=== PATIENT | female | born 1980 | race Two or more races ===

== ENCOUNTER 2016-06-11 17:37 | Emergency (ER) | payer BC, OTHER ==
[2016-06-11] MEDS ORDERED: diphenhydrAMINE 50 MG/ML SDV IVPUSH ONE (18:20)
[2016-06-11] MEDS ORDERED: Sodium Chloride 0.9% 1,000 ML IV ONE (18:20)
[2016-06-11] MEDS ORDERED: Metoclopramide 10 MG/2 ML SDV IV ONE (18:20)
[2016-06-11] MEDS ORDERED: Ketorolac 30 MG/ML SDV IVPUSH ONE (18:20)
[2016-06-11 19:03] LABS: CHLORIDE,CL 104 mmol/L (98-110); SODIUM,NA 138 mmol/L (136-146)
--- NOTE | 2016-06-11 19:09 | EDM.PDOC ---
ED HPI GENERAL MEDICAL PROBLEM - General Chief Complaint: Chest Pain Stated Complaint: PT HAS DIFFICULTY BREATHING Time Seen by Provider: 06/11/16 18:00 Source of Information: Reports: Patient History Limitations: Reports: No limitations - History of Present Illness INITIAL COMMENTS - FREE TEXT/NARRATIVE: HISTORY AND PHYSICAL: History of present illness: Patient is an obese 35-year-old female who presents to the emergency department today with multiple medical complaints. She states her blood pressure has been abnormal over the weekend and hard to control. she showed me a list of some of the measurements she is gone but they have never been over 150 systolic. She has had some sensations of upper chest and shoulder pain on both sides and nausea. She's been sleeping a lot over the weekend and has had a pounding headache all weekend. She does have history of headaches but those are usually well controlled and she has had issues with those for a while. She also history of anxiety and panic attacks and has had some anxiety-type symptoms this weekend but does not think it feels exactly like her typical symptoms. She presents today for evaluation of more chest pain and headache. She was at work today and started developing central chest pain that has been off and on. Currently her pain is a 2 but when it is on, it is a 7 or 8. She denies coughs, fevers, shortness of breath, nausea or vomiting. She has had some mild off and on abdominal pain. Review of systems: As per history of present illness and below otherwise all systems reviewed and negative. Past medical history: As per history of present illness and as reviewed below otherwise noncontributory. Surgical history: As per history of present illness and as reviewed below otherwise noncontributory. Social history: No reported history of drug or alcohol abuse. Family history: As per history of present illness and as reviewed below otherwise noncontributory. Physical exam: HEENT: Atraumatic, normocephalic, pupils reactive, negative for conjunctival pallor or scleral icterus, mucous membranes moist, throat clear, neck supple, nontender, trachea midline. Lungs: Clear to auscultation, breath sounds equal bilaterally, chest tender to palpation. Heart: S1S2, regular, negative for clicks, rubs, or JVD. Abdomen: Soft, nondistended, nontender. Negative for masses or hepatosplenomegaly. Negative for costovertebral tenderness. Pelvis: Stable nontender. Genitourinary: Deferred. Rectal: Deferred. Extremities: Atraumatic, negative for cords or calf pain. Neurovascular unremarkable. Neuro: Awake, alert, oriented. Cranial nerves II through XII unremarkable. Cerebellum unremarkable. Motor and sensory unremarkable throughout. Exam nonfocal. Diagnostics: EKG, cbc, cmp, troponin, chest xray, Therapeutics: IV fluids, toradol, benadryl, reglan Impression: #1: Headache #2: Atypical chest pain Plan: Patient felt much better after medications. Lab and imaging came back unremarkable and I do not feel this is cardiac related. She had reproducible chest tenderness. Her blood pressure was slightly elevated but not at a concerning level and she did not have any neurologic symptoms. Patient was comfortable with discharge and did not have additional questions or concerns and I advised follow up with primary care in the next few days or to return for any significant change or worsening of her symptoms. Definitive disposition and diagnosis as appropriate pending reevaluation and review of above. Mid-Sternal Chest Pain Score (Numeric/FACES): 7 - Related Data Allergies Allergy/AdvReac Type Severity Reaction Status Date / Time No Known Allergies Allergy Verified 06/11/16 17:49 Home Meds: Home Meds Cholecalciferol (Vitamin D3) [Vitamin D] 1 cap PO DAILY 12/30/14 [History] Lansoprazole [Prevacid] 1 cap PO DAILY 12/30/14 [History] Venlafaxine [Effexor XR] 150 mg PO DAILY 12/30/14 [History] metFORMIN [Glucophage] 1,000 mg PO BEDTIME 12/30/14 [History] ALPRAZolam [Alprazolam ER] 1 tab PO DAILY 06/11/16 [History] Cyanocobalamin (Vitamin B12) [Vitamin B12] 1 cap PO DAILY 06/11/16 [History] Divalproex Sodium [Depakote] 1 tab PO DAILY 06/11/16 [History] Lisinopril 1 tab PO DAILY 06/11/16 [History] Magnesium 2 tab PO DAILY 06/11/16 [History] Metoclopramide [Reglan] 1 tab PO DAILY 06/11/16 [History] Montelukast [Singulair] 1 cap PO DAILY 06/11/16 [History] Past Medical History Cardiovascular History: Reports: Hypertension Gastrointestinal History: Reports: GERD Other Gastrointestinal History: acid reflux Genitourinary History: Reports: Renal calculus Neurological History: Reports: Migraines Psychiatric History: Reports: Anxiety Endocrine/Metabolic History: Reports: Diabetes, type II Other Endocrine/Metabolic History: borderline diabetes - Past Surgical History GI Surgical History: Reports: Cholecystectomy Female Surgical History: Reports: section Social & Family History - Family History Family Medical History: Noncontributory - Tobacco Use Smoking Status *Q: Current Every Day Smoker Years of Tobacco use: 2 Packs/Tins Daily: 0.5 - Caffeine Use Caffeine Use: Reports: None - Recreational Drug Use Recreational Drug Use: No ED ROS GENERAL - Review of Systems Review Of Systems: ROS reveals no pertinent complaints other than HPI. ED EXAM, GENERAL - Physical Exam Exam: See Below (See HPI) Course - Vital Signs Last Recorded V/S: Last Vital Signs Temp 37.0 C 06/11/16 20:20 Pulse 78 06/11/16 20:20 Resp 16 06/11/16 20:20 BP 124/71 06/11/16 20:20 Pulse Ox 97 06/11/16 20:20 - Orders/Labs/Meds Orders: Active Orders 24 hr Category Date Time Status Chest 2V [CR] Stat Exams 06/11/16 19:09 Ordered Labs: Laboratory Tests 06/11/16 06/11/16 06/11/16 Range/Units 18:30 18:30 18:30 WBC 7.48 (4.0-11.0) K/uL RBC 4.20 L (4.30-5.90) M/uL Hgb 11.7 L (12.0-16.0) g/dL Hct 36.0 (36.0-46.0) % MCV 85.7 (80.0-98.0) fL MCH 27.9 (27.0-32.0) pg MCHC 32.5 (31.0-37.0) g/dL RDW Std Deviation 43.5 (28.0-62.0) fl RDW Coeff of Felix 14 (11.0-15.0) % Plt Count 276 (150-400) K/uL MPV 9.40 (7.40-12.00) fL Neut % (Auto) 64.6 (48.0-80.0) % Lymph % (Auto) 22.1 (16.0-40.0) % [place] % (Auto) 8.3 (0.0-15.0) % Eos % (Auto) 4.3 (0.0-7.0) % Baso % (Auto) 0.7 (0.0-1.5) % Neut # 4.8 (1.4-5.7) K/uL Lymph # 1.7 (0.6-2.4) K/uL [place] # 0.6 (0.0-0.8) K/uL Eos # 0.3 (0.0-0.7) K/uL Baso # 0.1 (0.0-0.1) K/uL Nucleated RBC % 0.0 /100WBC Nucleated RBCs # 0 K/uL Sodium 138 (136-146) mmol/L Potassium 4.2 (3.5-5.1) mmol/L Chloride 104 (98-110) mmol/L Carbon Dioxide 23 (21-31) mmol/L BUN 9 (6.0-23.0) mg/dL Creatinine 0.8 (0.6-1.5) mg/dL Est Cr Clr Drug Dosing TNP Estimated GFR (MDRD) > 60.0 ml/min Glucose 113 H (60-110) mg/dL Calcium 9.1 (8.8-10.8) mg/dL Total Bilirubin 0.3 (0.1-1.5) mg/dL AST 17 (5-40) IU/L ALT 21 (8-54) IU/L Alkaline Phosphatase 46 (40-150) Troponin I < 0.10 (0.0-0.29) NG/ML Total Protein 7.2 (6.0-8.0) g/dL Albumin 4.1 (3.5-5.0) g/dL Globulin 3.1 (2.0-3.5) g/dL Albumin/Globulin Ratio 1.3 (1.3-2.8) Meds: Medications Discontinued Medications Generic Name Dose Route Start Last Admin Trade Name Freq PRN Reason Stop Dose Admin Diphenhydramine HCl 25 mg 06/11/16 18:20 06/11/16 18:42 Benadryl IVPUSH 06/11/16 18:21 25 mg ONETIME ONE Administration Sodium Chloride 1,000 mls @ 999 mls/hr 06/11/16 18:20 06/11/16 18:41 Normal Saline IV 06/11/16 19:20 999 mls/hr STAT ONE Administration Ketorolac Tromethamine 30 mg 06/11/16 18:20 06/11/16 18:41 Toradol IVPUSH 06/11/16 18:21 30 mg ONETIME ONE Administration Metoclopramide HCl 10 mg 06/11/16 18:20 06/11/16 18:43 Reglan IV 06/11/16 18:21 10 mg ONETIME ONE Administration Departure - Departure Time of Disposition: 20:26 Disposition: Home, Self-Care 01 Condition: good Clinical Impression: Atypical chest pain Headache Qualifiers: Headache type: unspecified Headache chronicity pattern: episodic headache Intractability: not intractable Qualified Code(s): R51 - Headache Instructions: Migraine Headache, [id number], Chest Wall Pain, [id number] Referrals: PCP,None [Primary Care Provider] - Forms: ED Department Discharge Additional Instructions: The following information is given to patients seen in the emergency department who are being discharged to home. This information is to outline your options for follow-up care. We provide all patients seen in our emergency department with a follow-up referral. The need for follow-up, as well as the timing and circumstances, are variable depending upon the specifics of your emergency department visit. If you don't have a primary care physician on staff, we will provide you with a referral. We always advise you to contact your personal physician following an emergency department visit to inform them of the circumstance of the visit and for follow-up with them and/or the need for any referrals to a consulting specialist. The emergency department will also refer you to a specialist when appropriate. This referral assures that you have the opportunity for follow-up care with a specialist. All of these measure are taken in an effort to provide you with optimal care, which includes your follow-up. Under all circumstances we always encourage you to contact your private physician who remains a resource for coordinating your care. When calling for follow-up care, please make the office aware that this follow-up is from your recent emergency room visit. If for any reason you are refused follow-up, please contact the [facility] Emergency Department at and asked to speak to the emergency department charge nurse. [facility] [address] [place] [id number] - My Orders Last 24 Hours: My Active Orders 06/11/16 19:09 Chest 2V [CR] Stat - Assessment/Plan Last 24 Hours: My Active Orders 06/11/16 19:09 Chest 2V [CR] Stat
[2016-06-11 20:20] VITALS: BP 124/71
--- NOTE | 2016-06-12 14:47 | CR ---
EXAM DATE: 06/11/16 PATIENT'S AGE: 35 Patient: DOUGLAS ZABALA Facility: [place], [place] Site . Site : 1980 Study: XRay Chest [id number] 7:23:37 PM Ordering Physician: Doctor Valencia Final Report: CHEST 2 VIEWS INDICATION: Chest pain. IMPRESSION: Normal heart size and vascular pattern. Lungs are clear. No pneumothorax or pleural abnormality. Dictated by Ahsan Curry MD @ Jun 11 2016 7:32PM (Electronic Signature) Report Signed by Proxy and Original Signed Document filed in the Medical Record. MTDD
== END 2016-06-11 20:39 | disposition home or self-care (01) ==
LOC: MW.ED 17:37
DX: R51 Headache (principal); R07.89 Other chest pain; I10 Essential (primary) hypertension; K21.9 Gastro-esophageal reflux disease without esophagitis; E11.9 Type 2 diabetes mellitus without complications; F17.210 Nicotine dependence, cigarettes, uncomplicated; Z79.899 Other long term (current) drug therapy; Z79.84 Long term (current) use of oral hypoglycemic drugs; Z98.890 Other specified postprocedural states
CPT/HCPCS: 71020; 80053; 84484; 85025; 93005; 96361; 96374; 96375; 99285; J1200; J1885; J2765; J7040; 99284

== ENCOUNTER 2016-09-02 12:01 | Emergency (ER) | payer BC, OTHER ==
[2016-09-02] MEDS ORDERED: Sodium Chloride 0.9% 1,000 ML IV ONE (12:13)
[2016-09-02] MEDS ORDERED: fentaNYL 100 MCG/2 ML SDV IVPUSH ONE (12:14)
[2016-09-02] MEDS ORDERED: Ondansetron 4 MG/2 ML SDV IVPUSH ONE (12:14)
--- NOTE | 2016-09-02 12:56 | EDM.PDOC ---
ED HPI GENERAL MEDICAL PROBLEM - General Chief Complaint: Abdominal Pain Stated Complaint: STOMACH PAIN Time Seen by Provider: 09/02/16 12:10 Source of Information: Reports: Patient History Limitations: Reports: No Limitations - History of Present Illness INITIAL COMMENTS - FREE TEXT/NARRATIVE: History of present illness: 36-year-old female comes in complaining of abdominal pain. Patient indicates that it is A stabbing diaphragmatic pain that shoots from her upper epigastric region to her umbilicus and back and now it is radiating to her back. Patient states that she no longer has her gallbladder and indicates that she does have history of kidney stones but this is different sort of pain Review of systems: As per history of present illness and below otherwise all systems reviewed and negative. Past medical history: As per history of present illness and as reviewed below otherwise noncontributory. Surgical history: As per history of present illness and as reviewed below otherwise noncontributory. Social history: No reported history of drug or alcohol abuse. Family history: As per history of present illness and as reviewed below otherwise noncontributory. Physical exam: HEENT: Atraumatic, normocephalic, pupils reactive, negative for conjunctival pallor or scleral icterus, mucous membranes moist, throat clear, neck supple, nontender, trachea midline. Lungs: Clear to auscultation, breath sounds equal bilaterally, chest nontender. Heart: S1S2, regular, negative for clicks, rubs, or JVD. Abdomen: Soft, protuberant diffusely tender abdomen upper quadrant significantly more tender than lower quadrant pelvic region. Negative for masses or hepatosplenomegaly. Negative for costovertebral tenderness. Pelvis: Stable nontender. Genitourinary: Deferred. Rectal: Deferred. Extremities: Atraumatic, negative for cords or calf pain. Neurovascular unremarkable. Neuro: Awake, alert, oriented. Cranial nerves II through XII unremarkable. Cerebellum unremarkable. Motor and sensory unremarkable throughout. Exam nonfocal. All results negative patient in no acute distress with pain relieved CT of abdomen negative save for a fatty liver Diagnostics: [EKG, CBC, CMP, amylase, lipase] Therapeutics: [IV fluid, fentanyl, Zofran, morphine, omeprazole] Impression: [Abdominal pain] Plan: [Muscle relaxers follow up with PCP] Definitive disposition and diagnosis as appropriate pending reevaluation and review of above. abdomen Pain Score (Numeric/FACES): 10 - Related Data Allergies Allergy/AdvReac Type Severity Reaction Status Date / Time No Known Allergies Allergy Verified 09/02/16 12:05 Home Meds: Home Meds Cholecalciferol (Vitamin D3) [Vitamin D] 1 cap PO DAILY 12/30/14 [History] Lansoprazole [Prevacid] 1 cap PO DAILY 12/30/14 [History] Venlafaxine [Effexor XR] 225 mg PO BEDTIME 12/30/14 [History] metFORMIN [Glucophage] 1,000 mg PO BEDTIME 12/30/14 [History] ALPRAZolam [Alprazolam ER] 1 tab PO DAILY PRN 06/11/16 [History] Cyanocobalamin (Vitamin B12) [Vitamin B12] 1 cap PO DAILY 06/11/16 [History] Divalproex Sodium [Depakote] 1 tab PO DAILY 06/11/16 [History] Lisinopril 1 tab PO DAILY 06/11/16 [History] Magnesium 2 tab PO DAILY 06/11/16 [History] Metoclopramide [Reglan] 1 tab PO DAILY 06/11/16 [History] Montelukast [Singulair] 1 cap PO DAILY 06/11/16 [History] Past Medical History HEENT History: Reports: Impaired Vision Other HEENT History: wears glasses Cardiovascular History: Reports: Hypertension Gastrointestinal History: Reports: GERD Other Gastrointestinal History: acid reflux Genitourinary History: Reports: Renal Calculus [employer]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: Neurological History: Reports: Migraines Psychiatric History: Reports: Anxiety Endocrine/Metabolic History: Reports: Diabetes, Type II Other Endocrine/Metabolic History: borderline diabetes - Past Surgical History GI Surgical History: Reports: Cholecystectomy Female Surgical History: Reports: Section 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 Surgical History: Reports: Other (See Below) Other 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 Surgeries/Procedures:: broken arm Social & Family History - Family History Family Medical History: Noncontributory - Tobacco Use Smoking Status *Q: Current Every Day Smoker Years of Tobacco use: 2 Packs/Tins Daily: 1 - Caffeine Use Caffeine Use: Reports: Coffee Caffeine Use Comment: 2 cups daily - Recreational Drug Use Recreational Drug Use: No ED ROS GENERAL - Review of Systems Review Of Systems: See Below (History of present illness) ED EXAM, GI/ABD - Physical Exam Exam: See Below (To history of present illness) Course - Vital Signs Last Recorded V/S: Last Vital Signs Temp 36.1 C 09/02/16 12:08 Pulse 84 09/02/16 13:45 Resp 16 09/02/16 13:45 BP 139/84 09/02/16 13:45 Pulse Ox 97 09/02/16 13:45 - Orders/Labs/Meds Orders: Active Orders 24 hr Category Date Time Status EKG Documentation Completion [RC] STAT Care 09/02/16 12:13 Active Labs: Laboratory Tests 09/02/16 09/02/16 09/02/16 Range/Units 12:40 12:40 12:40 WBC 11.14 H (4.0-11.0) K/uL RBC 4.21 L (4.30-5.90) M/uL Hgb 12.0 (12.0-16.0) g/dL Hct 36.5 (36.0-46.0) % MCV 86.7 (80.0-98.0) fL MCH 28.5 (27.0-32.0) pg MCHC 32.9 (31.0-37.0) g/dL RDW Std Deviation 43.8 (28.0-62.0) fl RDW Coeff of Felix 14 (11.0-15.0) % Plt Count 331 (150-400) K/uL MPV 9.70 (7.40-12.00) fL Neut % (Auto) 65.4 (48.0-80.0) % Lymph % (Auto) 23.9 (16.0-40.0) % [place] % (Auto) 7.3 (0.0-15.0) % Eos % (Auto) 2.8 (0.0-7.0) % Baso % (Auto) 0.6 (0.0-1.5) % Neut # (Auto) 7.3 H (1.4-5.7) K/uL Lymph # (Auto) 2.7 H (0.6-2.4) K/uL [place] # (Auto) 0.8 (0.0-0.8) K/uL Eos # (Auto) 0.3 (0.0-0.7) K/uL Baso # (Auto) 0.1 (0.0-0.1) K/uL Nucleated RBC % 0.0 /100WBC Nucleated RBCs # 0 K/uL Sodium 137 (136-146) mmol/L Potassium 4.7 (3.5-5.1) mmol/L Chloride 102 (98-110) mmol/L Carbon Dioxide 22 (21-31) mmol/L BUN 12 (6.0-23.0) mg/dL Creatinine 0.8 (0.6-1.5) mg/dL Est Cr Clr Drug Dosing 71.95 mL/min Estimated GFR (MDRD) > 60.0 ml/min Glucose 161 H (60-110) mg/dL Calcium 9.5 (8.8-10.8) mg/dL Total Bilirubin 0.2 (0.1-1.5) mg/dL AST 18 (5-40) IU/L ALT 20 (8-54) IU/L Alkaline Phosphatase 51 (40-150) Troponin I < 0.10 (0.0-0.29) NG/ML Total Protein 7.9 (6.0-8.0) g/dL Albumin 4.6 (3.5-5.0) g/dL Globulin 3.3 (2.0-3.5) g/dL Albumin/Globulin Ratio 1.4 (1.3-2.8) Amylase 28 (10-90) U/L Lipase 57 (7-80) U/L Urine Color Urine Appearance Urine pH (5.0-8.0) Ur Specific [place] (1.001-1.035) Urine Protein (NEGATIVE) mg/dL Urine Glucose (UA) (NEGATIVE) mg/dL Urine Ketones (NEGATIVE) mg/dL Urine Occult Blood (NEGATIVE) Urine Nitrite (NEGATIVE) Urine Bilirubin (NEGATIVE) Urine Urobilinogen (<2.0) EU/dL Ur Leukocyte Esterase (NEGATIVE) Urine RBC (0-2/HPF) Urine WBC (0-5/HPF) Ur Epithelial Cells (NONE-FEW) Amorphous Sediment (NEGATIVE) Urine Bacteria (NEGATIVE) Urine Mucus (NONE-MOD) Urine HCG, Qual (NEGATIVE) 09/02/16 09/02/16 Range/Units 13:05 13:05 WBC (4.0-11.0) K/uL RBC (4.30-5.90) M/uL Hgb (12.0-16.0) g/dL Hct (36.0-46.0) % MCV (80.0-98.0) fL MCH (27.0-32.0) pg MCHC (31.0-37.0) g/dL RDW Std Deviation (28.0-62.0) fl RDW Coeff of Felix (11.0-15.0) % Plt Count (150-400) K/uL MPV (7.40-12.00) fL Neut % (Auto) (48.0-80.0) % Lymph % (Auto) (16.0-40.0) % [place] % (Auto) (0.0-15.0) % Eos % (Auto) (0.0-7.0) % Baso % (Auto) (0.0-1.5) % Neut # (Auto) (1.4-5.7) K/uL Lymph # (Auto) (0.6-2.4) K/uL [place] # (Auto) (0.0-0.8) K/uL Eos # (Auto) (0.0-0.7) K/uL Baso # (Auto) (0.0-0.1) K/uL Nucleated RBC % /100WBC Nucleated RBCs # K/uL Sodium (136-146) mmol/L Potassium (3.5-5.1) mmol/L Chloride (98-110) mmol/L Carbon Dioxide (21-31) mmol/L BUN (6.0-23.0) mg/dL Creatinine (0.6-1.5) mg/dL Est Cr Clr Drug Dosing mL/min Estimated GFR (MDRD) ml/min Glucose (60-110) mg/dL Calcium (8.8-10.8) mg/dL Total Bilirubin (0.1-1.5) mg/dL AST (5-40) IU/L ALT (8-54) IU/L Alkaline Phosphatase (40-150) Troponin I (0.0-0.29) NG/ML Total Protein (6.0-8.0) g/dL Albumin (3.5-5.0) g/dL Globulin (2.0-3.5) g/dL Albumin/Globulin Ratio (1.3-2.8) Amylase (10-90) U/L Lipase (7-80) U/L Urine Color YELLOW Urine Appearance CLEAR Urine pH 6.0 (5.0-8.0) Ur Specific [place] 1.015 (1.001-1.035) Urine Protein NEGATIVE (NEGATIVE) mg/dL Urine Glucose (UA) NEGATIVE (NEGATIVE) mg/dL Urine Ketones TRACE H (NEGATIVE) mg/dL Urine Occult Blood SMALL H (NEGATIVE) Urine Nitrite NEGATIVE (NEGATIVE) Urine Bilirubin NEGATIVE (NEGATIVE) Urine Urobilinogen 0.2 (<2.0) EU/dL Ur Leukocyte Esterase NEGATIVE (NEGATIVE) Urine RBC 0-1 (0-2/HPF) Urine WBC 0-2 (0-5/HPF) Ur Epithelial Cells RARE (NONE-FEW) Amorphous Sediment NOT SEEN (NEGATIVE) Urine Bacteria NOT SEEN (NEGATIVE) Urine Mucus NOT SEEN (NONE-MOD) Urine HCG, Qual NEGATIVE (NEGATIVE) Meds: Medications Discontinued Medications Generic Name Dose Route Start Last Admin Trade Name Freq PRN Reason Stop Dose Admin Fentanyl 50 mcg 09/02/16 12:14 09/02/16 12:58 Sublimaze IVPUSH 09/02/16 12:15 50 mcg ONETIME ONE Administration Sodium Chloride 1,000 mls @ 999 mls/hr 09/02/16 12:13 09/02/16 12:43 Normal Saline IV 09/02/16 13:13 999 mls/hr STAT ONE Administration Iopamidol 100 ml 09/02/16 14:20 09/02/16 14:21 Isovue Multipack-370 (76%) IVPUSH 09/02/16 14:21 100 ml ONETIME STA Administration Morphine Sulfate 4 mg 09/02/16 14:17 09/02/16 14:45 Morphine IV 09/02/16 14:18 4 mg ONETIME ONE Administration Ondansetron HCl 8 mg 09/02/16 12:14 09/02/16 12:55 Zofran IVPUSH 09/02/16 12:15 8 mg ONETIME ONE Administration Pantoprazole Sodium 80 mg 09/02/16 14:17 09/02/16 14:48 Protonix Iv IVPUSH 09/02/16 14:18 80 mg .BOLUS ONE Administration Departure - Departure Time of Disposition: 16:13 Disposition: Home, Self-Care 01 Condition: good Clinical Impression: Abdominal pain - Discharge Information Forms: ED Department Discharge Additional Instructions: The following information is given to patients seen in the emergency department who are being discharged to home. This information is to outline your options for follow-up care. We provide all patients seen in our emergency department with a follow-up referral. The need for follow-up, as well as the timing and circumstances, are variable depending upon the specifics of your emergency department visit. If you don't have a primary care physician on staff, we will provide you with a referral. We always advise you to contact your personal physician following an emergency department visit to inform them of the circumstance of the visit and for follow-up with them and/or the need for any referrals to a consulting specialist. The emergency department will also refer you to a specialist when appropriate. This referral assures that you have the opportunity for follow-up care with a specialist. All of these measure are taken in an effort to provide you with optimal care, which includes your follow-up. Under all circumstances we always encourage you to contact your private physician who remains a resource for coordinating your care. When calling for follow-up care, please make the office aware that this follow-up is from your recent emergency room visit. If for any reason you are refused follow-up, please contact the [facility] Emergency Department at and asked to speak to the emergency department charge nurse. All of your test results were negative as discussed with you In the light of these findings your pain is probably more consistent with a musculoskeletal problem Taking medicine as directed follow-up with your primary care provider in 1-2 days Return to ED as needed as discussed - My Orders Last 24 Hours: My Active Orders 09/02/16 12:13 EKG Documentation Completion [RC] STAT - Assessment/Plan Last 24 Hours: My Active Orders 09/02/16 12:13 EKG Documentation Completion [RC] STAT
[2016-09-02 13:14] LABS: CHLORIDE,CL 102 mmol/L (98-110); SODIUM,NA 137 mmol/L (136-146)
[2016-09-02] MEDS ORDERED: Morphine 10 MG/ML Syringe IV ONE (14:17)
[2016-09-02] MEDS ORDERED: Pantoprazole 40 MG Vial IVPUSH ONE (14:17)
[2016-09-02] MEDS ORDERED: Iopamidol 755 MG/ML 500 ML Multipack Bottle IVPUSH STA (14:20)
--- NOTE | 2016-09-02 15:37 | CT ---
CT of the abdomen and pelvis with contrast. HISTORY: Pain TECHNIQUE: Axial CT images were obtained of the abdomen and pelvis following administration of 100 m L of Isovue-370 in the right antecubital fossa without complication. Coronal and sagittal reconstruc tions obtained. FINDINGS: The lung bases are clear, no pleural effusion. There is likely at least moderate fatty infiltration of the liver. Cholecystectomy clips are noted. The spleen, adrenal glands, and pancreas appear normal. No bulky retroperitoneal lymphadenopathy or abdominal ascites. The kidneys enhance and function symmetrically without evidence of obstructive uropathy. Small renal cysts are noted bilaterally. Nonobstructing renal stones are noted measuring up to 1 cm. The visualized large and small bowel are normal in caliber without evidence of obstruction. No peric olonic inflammation or stranding. The appendix appears normal. No bulky pelvic lymphadenopathy or fr ee pelvic fluid. The urinary bladder appears normal. The uterus appears normal. Small ovarian cysts noted bilaterally. There is a stable tubular appearing cystic structure within the right adnexa [place] uring 5.2 x 2 cm. No suspicious osseous abnormalities identified. IMPRESSION: 1. No acute findings within the abdomen or pelvis. 2. Fatty infiltration of the liver. 3. Nonobstructing nephrolithiasis bilaterally. 4. Stable adnexal cystic structures.
[2016-09-02 16:49] VITALS: BP 140/80
== END 2016-09-02 16:34 | disposition home or self-care (01) ==
LOC: MW.ED 12:01
DX: R10.10 Upper abdominal pain, unspecified (principal); R10.30 Lower abdominal pain, unspecified; I10 Essential (primary) hypertension; K21.9 Gastro-esophageal reflux disease without esophagitis; G43.909 Migraine, unspecified, not intractable, without status migrainosus; F41.9 Anxiety disorder, unspecified; E11.9 Type 2 diabetes mellitus without complications; F17.210 Nicotine dependence, cigarettes, uncomplicated; Z90.49 Acquired absence of other specified parts of digestive tract; Z87.442 Personal history of urinary calculi; Z79.84 Long term (current) use of oral hypoglycemic drugs; Z79.899 Other long term (current) drug therapy
CPT/HCPCS: 74177; 80053; 81001; 81025; 82150; 83690; 84484; 85025; 93005; 96361; 96374; 96375; 99285; C9113; J2270; J2405; J3010; J7040; Q9967; 99284

== ENCOUNTER 2017-03-25 10:57 | Emergency (ER) | payer BC, OTHER ==
[2017-03-25] MEDS ORDERED: Sodium Chloride 0.9% 1,000 ML IV ONE (12:05)
[2017-03-25] MEDS ORDERED: Morphine 4 MG/ML Syringe IVPUSH ONE ×2 (12:05→15:17)
[2017-03-25] MEDS ORDERED: Ketorolac 30 MG/ML SDV IVPUSH ONE (12:05)
[2017-03-25] MEDS ORDERED: Ondansetron 4 MG/2 ML SDV IVPUSH ONE (12:05)
[2017-03-25 12:56] LABS: CHLORIDE,CL 104 mmol/L (98-110); SODIUM,NA 138 mmol/L (136-146)
--- NOTE | 2017-03-25 13:03 | EDM.PDOC ---
ED HPI GENERAL MEDICAL PROBLEM - General Chief Complaint: Abdominal Pain Stated Complaint: STOMACH AND BACK PAIN Time Seen by Provider: 03/25/17 11:01 Source of Information: Reports: Patient, Family History Limitations: Reports: No Limitations - History of Present Illness INITIAL COMMENTS - FREE TEXT/NARRATIVE: History of present illness: [36-year-old female comes in complaining of abdominal pain. Patient indicates that she has had several abdominal surgeries as well as kidney issues and this is like no pain she's ever had. Patient indicates that she has not been able to eat due to nausea from the pain and that she had to leave work it was so debilitating.] Review of systems: As per history of present illness and below otherwise all systems reviewed and negative. Past medical history: As per history of present illness and as reviewed below otherwise noncontributory. Surgical history: As per history of present illness and as reviewed below otherwise noncontributory. Social history: No reported history of drug or alcohol abuse. Family history: As per history of present illness and as reviewed below otherwise noncontributory. Physical exam: HEENT: Atraumatic, normocephalic, pupils reactive, negative for conjunctival pallor or scleral icterus, mucous membranes moist, throat clear, neck supple, nontender, trachea midline. Lungs: Clear to auscultation, breath sounds equal bilaterally, chest nontender. Heart: S1S2, regular, negative for clicks, rubs, or JVD. Abdomen: Soft, protuberant abdomen, diffuse nonspecific tenderness. Negative for masses or hepatosplenomegaly. Negative for costovertebral tenderness. Pelvis: Stable nontender. Genitourinary: Deferred. Rectal: Deferred. Extremities: Atraumatic, negative for cords or calf pain. Neurovascular unremarkable. Neuro: Awake, alert, oriented. Cranial nerves II through XII unremarkable. Cerebellum unremarkable. Motor and sensory unremarkable throughout. Exam nonfocal. Spoke with Dr. Mckinnon for referral for follow-up with him. Diagnostics: [CBC, CMP, CT of abdomen] Therapeutics: [IV fluid, morphine, Norflex, Toradol, Zofran] Impression: [Ovarian cyst r/o hypospinx Plan: [Pain management follow-up with Dr. Mckinnon] Definitive disposition and diagnosis as appropriate pending reevaluation and review of above. Bilateral Lower Abdomen Pain Score (Numeric/FACES): 8 posterior head Pain Score (Numeric/FACES): 10 - Related Data Allergies Allergy/AdvReac Type Severity Reaction Status Date / Time No Known Allergies Allergy Verified 03/25/17 11:20 Home Meds: Home Meds Cholecalciferol (Vitamin D3) [Vitamin D] 1 cap PO DAILY 12/30/14 [History] Venlafaxine [Effexor XR] 150 mg PO BEDTIME 12/30/14 [History] metFORMIN [Glucophage] 750 mg PO BEDTIME 12/30/14 [History] ALPRAZolam [Alprazolam ER] 0.5 tab PO DAILY PRN 06/11/16 [History] Cyanocobalamin (Vitamin B12) [Vitamin B12] 1 cap PO DAILY 06/11/16 [History] Divalproex Sodium [Depakote] 1 tab PO DAILY 06/11/16 [History] Lisinopril 1 tab PO DAILY 06/11/16 [History] Metoclopramide [Reglan] 1 tab PO DAILY 06/11/16 [History] Doxycycline [Vibramycin] 100 mg PO BID #20 tablet 03/25/17 [Rx] Loratadine 10 mg PO DAILY 03/25/17 [History] Magnesium 250 mg PO DAILY 03/25/17 [History] Pantoprazole [ProTONIX] 40 mg PO ONETIME 03/25/17 [History] Tamsulosin [Flomax] 0.4 mg PO DAILY 03/25/17 [History] metroNIDAZOLE [Metronidazole] 500 mg PO BID #28 tablet 03/25/17 [Rx] Past Medical History HEENT History: Reports: Impaired Vision Other HEENT History: wears glasses Cardiovascular History: Reports: Hypertension Gastrointestinal History: Reports: GERD Other Gastrointestinal History: acid reflux Genitourinary History: Reports: Renal Calculus 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: Neurological History: Reports: Migraines Psychiatric History: Reports: Anxiety Endocrine/Metabolic History: Reports: Diabetes, Type II Other Endocrine/Metabolic History: borderline diabetes Hematologic History: Reports: None Immunologic History: Reports: None Oncologic (Cancer) History: Reports: None - Past Surgical History Head Surgeries/Procedures: Reports: None GI Surgical History: Reports: Cholecystectomy Female Surgical History: Reports: Section 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 Surgical History: Reports: Other (See Below) Other 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 Surgeries/Procedures:: broken arm Oncologic Surgical History: Reports: None Social & Family History - Family History Family Medical History: Noncontributory - Tobacco Use Smoking Status *Q: Current Every Day Smoker Years of Tobacco use: 3 Packs/Tins Daily: 0.5 - Caffeine Use Caffeine Use: Reports: Coffee Caffeine Use Comment: 2 cups daily - Recreational Drug Use Recreational Drug Use: No ED ROS GENERAL - Review of Systems Review Of Systems: See Below (History of present illness) ED EXAM, GENERAL - Physical Exam Exam: See Below (History of present illness) Course - Vital Signs Last Recorded V/S: Last Vital Signs Temp 36.0 C 03/25/17 11:22 Pulse 88 03/25/17 11:22 Resp 18 03/25/17 11:22 BP 141/65 H 03/25/17 11:22 Pulse Ox 98 03/25/17 11:22 - Orders/Labs/Meds Orders: Active Orders 24 hr Category Date Time Status Orphenadrine [Norflex] Med 03/25/17 12:15 Active 60 mg IM Q12H Medication Orders Orphenadrine Citrate (Norflex) 60 mg IM Q12H BRISA Last Admin: 03/25/17 12:25 Dose: 60 mg Labs: Laboratory Tests 03/25/17 03/25/17 Range/Units 12:15 12:15 WBC 9.36 (4.0-11.0) K/uL RBC 4.06 L (4.30-5.90) M/uL Hgb 11.7 L (12.0-16.0) g/dL Hct 35.4 L (36.0-46.0) % MCV 87.2 (80.0-98.0) fL MCH 28.8 (27.0-32.0) pg MCHC 33.1 (31.0-37.0) g/dL RDW Std Deviation 44.0 (28.0-62.0) fl RDW Coeff of Felix 14 (11.0-15.0) % Plt Count 276 (150-400) K/uL MPV 9.60 (7.40-12.00) fL Neut % (Auto) 61.1 (48.0-80.0) % Lymph % (Auto) 26.5 (16.0-40.0) % Riley % (Auto) 7.3 (0.0-15.0) % Eos % (Auto) 4.4 (0.0-7.0) % Baso % (Auto) 0.7 (0.0-1.5) % Neut # (Auto) 5.7 (1.4-5.7) K/uL Lymph # (Auto) 2.5 H (0.6-2.4) K/uL Riley # (Auto) 0.7 (0.0-0.8) K/uL Eos # (Auto) 0.4 (0.0-0.7) K/uL Baso # (Auto) 0.1 (0.0-0.1) K/uL Nucleated RBC % 0.0 /100WBC Nucleated RBCs # 0 K/uL Sodium 138 (136-146) mmol/L Potassium 3.7 (3.5-5.1) mmol/L Chloride 104 (98-110) mmol/L Carbon Dioxide 22 (21-31) mmol/L BUN 10 (6.0-23.0) mg/dL Creatinine 0.7 (0.6-1.5) mg/dL Est Cr Clr Drug Dosing 82.23 mL/min Estimated GFR (MDRD) > 60.0 ml/min Glucose 130 H (60-110) mg/dL Calcium 9.6 (8.8-10.8) mg/dL Total Bilirubin 0.2 (0.1-1.5) mg/dL AST 21 (5-40) IU/L ALT 32 (8-54) IU/L Alkaline Phosphatase 58 (40-150) Total Protein 7.3 (6.0-8.0) g/dL Albumin 4.2 (3.5-5.0) g/dL Globulin 3.1 (2.0-3.5) g/dL Albumin/Globulin Ratio 1.4 (1.3-2.8) Meds: Medications Generic Name Dose Route Start Last Admin Trade Name Freq PRN Reason Stop Dose Admin Orphenadrine Citrate 60 mg 03/25/17 12:15 03/25/17 12:25 Norflex IM 60 mg Q12H BRISA Administration Discontinued Medications Generic Name Dose Route Start Last Admin Trade Name Freq PRN Reason Stop Dose Admin Sodium Chloride 1,000 mls @ 999 mls/hr 03/25/17 12:05 03/25/17 12:25 Normal Saline IV 03/25/17 13:05 999 mls/hr STAT ONE Administration Iopamidol 100 ml 03/25/17 13:51 03/25/17 13:53 Isovue Multipack-370 (76%) IVPUSH 03/25/17 13:52 100 ml ONETIME STA Administration Ketorolac Tromethamine 30 mg 03/25/17 12:05 03/25/17 12:24 Toradol IVPUSH 03/25/17 12:06 30 mg ONETIME ONE Administration Morphine Sulfate 4 mg 03/25/17 12:05 03/25/17 12:25 Morphine IVPUSH 03/25/17 12:06 4 mg ONETIME ONE Administration Morphine Sulfate 4 mg 03/25/17 15:17 Morphine IVPUSH 03/25/17 15:18 ONETIME ONE Ondansetron HCl 4 mg 03/25/17 12:05 03/25/17 12:25 Zofran IVPUSH 03/25/17 12:06 4 mg ONETIME ONE Administration Departure - Departure Time of Disposition: 15:55 Disposition: Home, Self-Care 01 Condition: Good Clinical Impression: Ovarian cyst, Hydrosalpinx - Discharge Information Referrals: PCP,None [Primary Care Provider] - Forms: ED Department Discharge Additional Instructions: The following information is given to patients seen in the emergency department who are being discharged to home. This information is to outline your options for follow-up care. We provide all patients seen in our emergency department with a follow-up referral. The need for follow-up, as well as the timing and circumstances, are variable depending upon the specifics of your emergency department visit. If you don't have a primary care physician on staff, we will provide you with a referral. We always advise you to contact your personal physician following an emergency department visit to inform them of the circumstance of the visit and for follow-up with them and/or the need for any referrals to a consulting specialist. The emergency department will also refer you to a specialist when appropriate. This referral assures that you have the opportunity for follow-up care with a specialist. All of these measure are taken in an effort to provide you with optimal care, which includes your follow-up. Under all circumstances we always encourage you to contact your private physician who remains a resource for coordinating your care. When calling for follow-up care, please make the office aware that this follow-up is from your recent emergency room visit. If for any reason you are refused follow-up, please contact the [facility] Emergency Department at and asked to speak to the emergency department charge nurse. Take medication as directed Follow-up with OB without missing the appointment Return to ER as needed as discussed - My Orders Last 24 Hours: My Active Orders 03/25/17 12:15 Orphenadrine [Norflex] 60 mg IM Q12H - Assessment/Plan Last 24 Hours: My Active Orders 03/25/17 12:15 Orphenadrine [Norflex] 60 mg IM Q12H
[2017-03-25] MEDS ORDERED: Iopamidol 755 MG/ML 500 ML Multipack Bottle IVPUSH STA (13:51)
--- NOTE | 2017-03-25 15:07 | CT ---
CT of the abdomen and pelvis with contrast. HISTORY: Pain TECHNIQUE: Axial CT images were obtained of the abdomen and pelvis following administration of 100 mL of Isovue-370 in the right antecubital fossa without complication. Coronal and sagittal reconstructi ons obtained. FINDINGS: The lung bases are clear, no pleural effusion. Liver, spleen, adrenal glands, and pancreas appear normal. Cholecystectomy clips are noted. No bulky retroperitoneal lymphadenopathy or abdominal ascites. The kidneys enhance and function symmetrically without evidence of obstructive uropathy. Small renal cortical cysts are noted bilaterally. Nonobstructing stones are noted within the lower pole of the le ft kidney. There is a tubular-shaped 4.8 x 1.8 cm right ovarian cyst versus hydrosalpinx. The small bowel are normal in caliber without evidence of obstruction. No focal pericolonic inflammat ion or stranding. The urinary bladder is normal. A bulky pelvic lymphadenopathy or free pelvic fluid. No suspicious osseous abnormalities. IMPRESSION: 1. There is a 4.8 x 1.8 cm right ovarian cyst versus hydrosalpinx. 2. Otherwise no acute findings within the abdomen or pelvis. 3. Nonobstructing left nephrolithiasis.
[2017-03-25] MEDS ORDERED: cefTRIAXone 2,000 MG, Lidocaine 1% 2.1 ML IM ONE ×2 (15:16)
[2017-03-25] MEDS ORDERED: cefTRIAXone 1 GM in Premix Bag 1 BAG IV ONE (15:45)
[2017-03-25] MEDS ORDERED: cefTRIAXone 2 GM in Premix Bag 1 BAG IV ONE (15:46)
[2017-03-25 16:40] VITALS: BP 144/77
== END 2017-03-25 16:37 | disposition home or self-care (01) ==
LOC: MW.ED 10:57
DX: N83.201 Unspecified ovarian cyst, right side (principal); N70.11 Chronic salpingitis; K21.9 Gastro-esophageal reflux disease without esophagitis; I10 Essential (primary) hypertension; E11.9 Type 2 diabetes mellitus without complications; Z79.84 Long term (current) use of oral hypoglycemic drugs; Z79.899 Other long term (current) drug therapy; F17.210 Nicotine dependence, cigarettes, uncomplicated; Z90.49 Acquired absence of other specified parts of digestive tract
CPT/HCPCS: 36415; 74177; 80053; 85025; 96361; 96365; 96372; 96375; 96376; 99284; J0696; J1885; J2270; J2360; J2405; J7040; Q9967; 99283

== ENCOUNTER 2017-04-10 07:41 | Day surgery (SDC) | payer BC, OTHER ==
[2017-04-09 09:40] LABS: CHLORIDE,CL 101 mmol/L (98-110); SODIUM,NA 137 mmol/L (136-146)
[~2017-04-10 07:41] MED LIST: Lactated Ringers 1,000 ML IV SCH; Sodium Chloride 0.9% 10 ML Syringe FLUSH PRN; Sodium Chloride 0.9% 2.5 ML Syringe FLUSH PRN; ceFAZolin 2 GM in Premix Bag 1 BAG IV ONE
[2017-04-10] MEDS ORDERED: Fluorescein 5 ML Vial ONE (08:26)
[2017-04-10] MEDS ORDERED: Octyl 2-Cyanoacrylate 1 Tube ONE (08:29)
[2017-04-10] MEDS ORDERED: Propofol 200 MG/20 ML SDV ONE (08:30)
[2017-04-10] MEDS ORDERED: Furosemide 40 MG/4 ML VIAL ONE (08:30)
[2017-04-10] MEDS ORDERED: Dexamethasone 4 MG/ML 5 ML MDV ONE (08:30)
[2017-04-10] MEDS ORDERED: HYDROmorphone 2 MG/ML SDV ONE (08:30)
[2017-04-10] MEDS ORDERED: Midazolam 1 MG/ML 2 ML SDV ONE (08:30)
[2017-04-10] MEDS ORDERED: Ondansetron 4 MG/2 ML SDV ONE (08:30)
[2017-04-10] MEDS ORDERED: fentaNYL 250 MCG/5 ML SDV ONE (08:30)
[2017-04-10] MEDS ORDERED: diphenhydrAMINE 50 MG/ML SDV ONE (08:30)
[2017-04-10] MEDS ORDERED: Rocuronium 10 MG/ML 10 ML Syringe ONE (08:30)
[2017-04-10] MEDS ORDERED: Scopolamine 1.5 MG Transdermal Patch TRDERM PRN (09:02)
--- NOTE | 2017-04-10 09:02 | PCM.PREANE ---
Preanesthetic Assessment - Anesthesia/Transfusion/Family Hx Anesthesia History: Prior Anesthesia Without Reaction Other Type of Anesthesia Reaction Comment: states she is hard to wake Family History of Anesthesia Reaction: No Transfusion History: No Prior Transfusion(s) Intubation History: Unknown - Review of Systems General: No Symptoms Pulmonary: No Symptoms Cardiovascular: No Symptoms Gastrointestinal: No Symptoms Neurological: No Symptoms Other: Reports: None - Physical Assessment O2 Sat by Pulse Oximetry: 96 Respiratory Rate: 16 Vital Signs: Last Vital Signs Temp 36.2 C 04/10/17 07:50 Pulse 74 04/10/17 07:50 Resp 16 04/10/17 07:50 BP 143/64 H 04/10/17 07:50 Pulse Ox 96 04/10/17 07:50 Height: 1.55 m Weight: 104.326 kg ASA Class: 3 Mental Status: Alert & Oriented x3 Airway Class: Mallampati = 2 Dentition: Reports: Normal Dentition Thyro-Mental Finger Breadths: 2 Mouth Opening Finger Breadths: 3 ROM/Head Extension: Full Lungs: Clear to Auscultation, Normal Respiratory Effort Cardiovascular: Regular Rate, Regular Rhythm - Lab Values: Laboratory Last Values WBC 8.16 K/uL (4.0-11.0) 04/09/17 09:16 RBC 4.35 M/uL (4.30-5.90) 04/09/17 09:16 Hgb 12.5 g/dL (12.0-16.0) 04/09/17 09:16 Hct 38.0 % (36.0-46.0) 04/09/17 09:16 MCV 87.4 fL (80.0-98.0) 04/09/17 09:16 MCH 28.7 pg (27.0-32.0) 04/09/17 09:16 MCHC 32.9 g/dL (31.0-37.0) 04/09/17 09:16 RDW Std Deviation 45.1 fl (28.0-62.0) 04/09/17 09:16 RDW Coeff of Felix 14 % (11.0-15.0) 04/09/17 09:16 Plt Count 321 K/uL (150-400) 04/09/17 09:16 MPV 9.50 fL (7.40-12.00) 04/09/17 09:16 Nucleated RBC % 0.0 /100WBC 04/09/17 09:16 Nucleated RBCs # 0 K/uL 04/09/17 09:16 Sodium 137 mmol/L (136-146) 04/09/17 09:16 Potassium 4.9 mmol/L (3.5-5.1) 04/09/17 09:16 Chloride 101 mmol/L (98-110) 04/09/17 09:16 Carbon Dioxide 23 mmol/L (21-31) 04/09/17 09:16 BUN 12 mg/dL (6.0-23.0) 04/09/17 09:16 Creatinine 0.8 mg/dL (0.6-1.5) 04/09/17 09:16 Est Cr Clr Drug Dosing 71.95 mL/min 04/09/17 09:16 Estimated GFR (MDRD) > 60.0 ml/min 04/09/17 09:16 Glucose 142 mg/dL (60-110) H 04/09/17 09:16 Calcium 9.5 mg/dL (8.8-10.8) 04/09/17 09:16 HCG, Qual NEGATIVE (NEG) 04/09/17 09:16 Blood Type A POSITIVE 04/09/17 09:16 Antibody Screen NEGATIVE 04/09/17 09:16 - Allergies Allergies/Adverse Reactions: Allergies Allergy/AdvReac Type Severity Reaction Status Date / Time banana Allergy Itching Verified 04/10/17 08:08 latex Allergy "due to Verified 04/10/17 08:09 banana allergy" cats Allergy Mild Sneezing Uncoded 04/10/17 08:10 cloth bandaids Allergy Mild Rash Uncoded 04/10/17 08:08 fruit Allergy Mild scratchy Uncoded 04/10/17 08:10 throat seasonal allergies Allergy Mild Sneezing Uncoded 04/10/17 08:10 - Blood Blood Available: No - Anesthesia Plan Pre-Op Medication Ordered: None - Acknowledgements Anesthesia Type Planned: General Anesthesia Pt an Appropriate Candidate for the Planned Anesthesia: Yes Alternatives and Risks of Anesthesia Discussed w Pt/Guardian: Yes Pt/Guardian Understands and Agrees with Anesthesia Plan: Yes PreAnesthesia Questionnaire HEENT History: Reports: Impaired Vision, Other (See Below) Other HEENT History: wears glasses Cardiovascular History: Reports: Hypertension Respiratory History: Reports: Asthma, Sleep Apnea Other Respiratory History: asthma as a child, uses CPAP Gastrointestinal History: Reports: GERD Genitourinary History: Reports: Renal Calculus [employer] MANAGER History: Reports: 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 History: Reports: Fracture Neurological History: Reports: Migraines Psychiatric History: Reports: Anxiety, Depression Endocrine/Metabolic History: Reports: Diabetes, Type II, Obesity/BMI 30+ (BMI 43.5) Hematologic History: Reports: None Immunologic History: Reports: None Oncologic (Cancer) History: Reports: None - Past Surgical History Head Surgeries/Procedures: Reports: None GI Surgical History: Reports: Cholecystectomy Female Surgical History: Reports: Section, Lithotripsy/ESWL ( x3) 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 Surgical History: Reports: Other (See Below) Other 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 Surgeries/Procedures:: surgical tx for broken left wrist ( external fixator) Oncologic Surgical History: Reports: None - SUBSTANCE USE Smoking Status *Q: Current Every Day Smoker (now light smoker, will try to quit smoking) Tobacco Use Within Last Twelve Months: Cigarettes Second Hand Smoke Exposure: No Recreational Drug Use History: No - HOME MEDS Home Medications: Home Meds Venlafaxine [Effexor XR] 150 mg PO BEDTIME 12/30/14 [History] Lisinopril 1 tab PO DAILY 06/11/16 [History] Doxycycline [Vibramycin] 100 mg PO BID #20 tablet 03/25/17 [Rx] Magnesium 250 mg PO DAILY 03/25/17 [History] Pantoprazole [ProTONIX] 40 mg PO ONETIME 03/25/17 [History] Cholecalciferol (Vitamin D3) [Vitamin D3] 1 tab PO DAILY 04/07/17 [History] Cyanocobalamin (Vitamin B-12) [Vitamin B-12] 50 mcg PO DAILY 04/07/17 [History] Divalproex Sodium 500 mg PO BEDTIME 04/07/17 [History] Gabapentin [Neurontin] 2 tab PO BEDTIME 04/07/17 [History] L.acidoph,Paracasei, B.lactis [Probiotic] 1 tab PO BEDTIME 04/07/17 [History] Loratadine [Claritin] 10 mg PO DAILY 04/07/17 [History] PNV95/Ferrous Fumarate/FA [ Vitamin Tablet] 1 tab PO BEDTIME 04/07/17 [ History] Saxagliptin [Onglyza] 5 mg PO DAILY 04/07/17 [History] Sucralfate 1 gm PO BID 04/07/17 [History] - CURRENT (IN HOUSE) MEDS Current Meds: Current Medications Lactated Ringer's (Ringers, Lactated) 1,000 mls @ 125 mls/hr IV ASDIRECTED BRISA Last Admin: 04/10/17 07:52 Dose: 125 mls/hr Sodium Chloride (Saline Flush) 10 ml FLUSH ASDIRECTED PRN PRN Reason: Keep Vein Open Sodium Chloride (Saline Flush) 2.5 ml FLUSH ASDIRECTED PRN PRN Reason: Keep Vein Open Discontinued Medications Dexamethasone (Dexamethasone) Confirm Administered Dose 20 mg .ROUTE .STK-MED ONE Stop: 04/10/17 08:31 Diphenhydramine HCl (Benadryl) Confirm Administered Dose 50 mg .ROUTE .STK-MED ONE Stop: 04/10/17 08:31 Fentanyl (Sublimaze) Confirm Administered Dose 250 mcg .ROUTE .STK-MED ONE Stop: 04/10/17 08:31 Fluorescein Sodium (Ak-Fluor) Confirm Administered Dose 5 ml .ROUTE .STK-MED ONE Stop: 04/10/17 08:27 Furosemide (Lasix) Confirm Administered Dose 40 mg .ROUTE .STK-MED ONE Stop: 04/10/17 08:31 Hydromorphone HCl (Dilaudid) Confirm Administered Dose 2 mg .ROUTE .STK-MED ONE Stop: 04/10/17 08:31 Cefazolin Sodium/Dextrose 2 gm (/ Premix) 50 mls @ 100 mls/hr IV ONETIME ONE Stop: 04/09/17 09:11 Midazolam HCl (Versed 1 Mg/Ml) Confirm Administered Dose 2 mg .ROUTE .STK-MED ONE Stop: 04/10/17 08:31 Octyl Cyanoacrylate (Dermabond Advance) Confirm Administered Dose 1 applic .ROUTE .STK-MED ONE Stop: 04/10/17 08:30 Ondansetron HCl (Zofran) Confirm Administered Dose 4 mg .ROUTE .STK-MED ONE Stop: 04/10/17 08:31 Propofol (Diprivan 20 Ml) Confirm Administered Dose 200 mg .ROUTE .STK-MED ONE Stop: 04/10/17 08:31 Rocuronium [place] (Zemuron) Confirm Administered Dose 100 mg .ROUTE .STK-MED ONE Stop: 04/10/17 08:31
[2017-04-10] MEDS ORDERED: Succinylcholine/Normal Saline 200 MG/10 ML Syringe ONE (09:43)
[2017-04-10] MEDS ORDERED: Mineral Oil/Petrolatum Ophth Oint 3.5 GM Tube ONE (09:45)
[2017-04-10] MEDS ORDERED: fentaNYL 100 MCG/2 ML SDV ONE (10:34)
[2017-04-10] MEDS ORDERED: Glycopyrrolate 0.2 MG/ML SDV ONE (11:10)
[2017-04-10] MEDS ORDERED: Neostigmine Methylsulfate 1 MG/ML 5 ML Syringe ONE (11:10)
[2017-04-10] MEDS ORDERED: Acetaminophen/oxyCODONE 325-5 MG Tab PO PRN (11:20)
[2017-04-10] MEDS ORDERED: Ketorolac 30 MG/ML SDV IVPUSH ONE (11:20)
[2017-04-10] MEDS ORDERED: Morphine 2 MG/ML Syringe IVPUSH PRN (11:20)
[2017-04-10] MEDS ORDERED: Promethazine 25 MG/ML SDV IM PRN (11:20)
[2017-04-10] MEDS ORDERED: Ondansetron 4 MG/2 ML SDV IVPUSH PRN (11:20)
[2017-04-10] MEDS ORDERED: Morphine 4 MG/ML Syringe IVPUSH PRN (11:20)
--- NOTE | 2017-04-10 11:24 | PCM.OPNOTE ---
- General Post-Op/Procedure Note Date of Surgery/Procedure: 04/10/17 Operative Procedure(s): TLH, salpengectomy and cystoscopy Post-Op Diagnosis: Same Complications: None Condition: Good
--- NOTE | 2017-04-10 12:25 | PCM.POSTAN ---
POST ANESTHESIA ASSESSMENT - MENTAL STATUS Mental Status: Alert, Oriented - RESPIRATORY Respiratory Status: Respiratory Rate WNL, Airway Patent, O2 Saturation Stable - CARDIOVASCULAR CV Status: Pulse Rate WNL, Blood Pressure Stable - GASTROINTESTINAL GI Status: No Symptoms - PAIN Pain Score: 6 (needs to pee to get pain level down) - POST OP HYDRATION Hydration Status: Adequate & Stable - OBSERVATIONS Free Text/Narrative:: no anesthesia problems
[2017-04-10] MEDS: Ketorolac 30 MG/ML SDV IVPUSH PRN ×2 (12:29→19:47)
--- NOTE | 2017-04-10 12:39 | OR ---
SURGEON: Nate Mckinnon MD DATE OF PROCEDURE: PREOPERATIVE DIAGNOSES: Menometrorrhagia, fibroid uterus, pelvic pain. POSTOPERATIVE DIAGNOSIS: Menometrorrhagia, fibroid uterus, pelvic pain. OPERATION PERFORMED: Multiple puncture diagnostic laparoscopy, total laparoscopic hysterectomy, laparoscopic bilateral salpingectomy preserving both ovary, and cystoscopy. ORIENTATION AND MOBILITY INSTRUCTOR: GLADIS Narvaez. ANESTHESIA: General endotracheal intubation by Nory Greer. ESTIMATED BLOOD LOSS: Less than 100 mL. COMPLICATIONS: None. FINDINGS: Uterus is about 10-week size with multiple fibroids. There is adhesion from her previous section around the lower uterine segment, cervix, and the bladder. INDICATION FOR SURGERY: [place] refer to the admit note. PROCEDURE IN DETAIL: The patient was brought to the OR, properly identified, and after adequate level of general anesthesia, the patient was placed in lithotomy position with an access to the abdomen and the vagina. The patient was prepped and draped in sterile fashion as usual and a Puente catheter was placed in the bladder for drainage and the SurveyMonkey surgical manipulator was placed in the uterus for manipulation, and then operation shifted abdominally. Stab wound done beneath the umbilicus. The Veress needle was placed in the peritoneal cavity and that cavity was insufflated with 6 L of carbon dioxide. The skin incision large to accommodate 5 mm trocar and 5 mm scope through it utilizing the Visiport technique direct entry to the abdomen was done. After entering, there is no adhesion between the anterior abdominal wall and the omentum and the pelvic sidewall. However, there is an adhesion of the bladder into the cervix and the lower uterine segment from her previous section. A 10-12 trocar placed in the left iliac fossa and 5 mm trocar placed in the right iliac fossa, was entered under direct vision. The operation was started by using the Eugene Harmonic scapula and coagulated, and transected in the superior pedicle. Both ovary preserved, but both tubes included with the specimen. The broad ligament dissected downward and transected with the same instrument and then the anterior leaf of the broad ligament dissected downward medially. With meticulous and slow dissecting of the bladder, I was able to release some of the scars and dissected the bladder totally away from the cervix in the lower uterine segment and I could easily see and easily palpate the manipulator through the vagina. Once this got done, then skeletonization of the uterine vessel was done and these vessel coagulated, transected with Eugene Harmonic scapula. Next, the vagina was entered using the Harmonic scapula in circular manner at the edge of the manipulator detaching the cervix from its attachment to the vagina. Once we did that, then the uterus and both tubes were removed vaginally and then we proceeded to close the vaginal cuff laparoscopically using 2-0 PDS interrupted suture. After that, thorough irrigation of the pelvis was done. There was no oozing, no bleeding, and while we were doing that we asked anesthesiologist, anesthesia personnel to give the patient 5 mL of fluorescein and then cystoscopy was performed. The bladder was intact. Both ureteric orifices were seen with the dye coming from both of them. Thus, the patency of both ureters was verified. Satisfied with these findings, the instrument and hardware were retrieved from the abdomen and the vagina. The multiple laparoscopic incision was closed in layers. Instrument and sponge count were correct. The patient tolerated the procedure well and went to recovery room in stable general condition. BENJAMIN / TRACY /[id number]
--- NOTE | 2017-04-10 19:52 | PCM48HPAN ---
Post Anesthesia Note - EVALUATION WITHIN 48HRS OF ANESTHETIC Vital Signs in Normal Range: Yes Patient Participated in Evaluation: Yes Respiratory Function Stable: Yes Airway Patent: Yes Cardiovascular Function Stable: Yes Hydration Status Stable: Yes Pain Control Satisfactory: Yes Nausea and Vomiting Control Satisfactory: Yes Mental Status Recovered: Yes - COMMENTS/OBSERVATIONS Free Text/Narrative:: Pt sitting up in bed with home CPAP on. States that she has slightly pain in her lower abdomen, but overall good and no nausea.
[2017-04-11] MEDS: Acetaminophen/oxyCODONE 325-5 MG Tab PO PRN ×2 (04:43→08:50)
[2017-04-11 06:54] LABS: CHLORIDE,CL 102 mmol/L (98-110); SODIUM,NA 138 mmol/L (136-146)
[2017-04-11 08:18] VITALS: BP 122/58
--- NOTE | 2017-04-11 09:18 | PCM.SURGPN ---
- General Info Date of Service: 04/11/17 POD#: 1 Functional Status: Reports: Pain Controlled - Review of Systems General: Reports: No Symptoms HEENT: Reports: No Symptoms Pulmonary: Reports: No Symptoms Cardiovascular: Reports: No Symptoms Gastrointestinal: Reports: No Symptoms Genitourinary: Reports: No Symptoms 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: Reports: No Symptoms Skin: Reports: No Symptoms Neurological: Reports: No Symptoms Psychiatric: Reports: No Symptoms - Patient Data Vitals - Most Recent: Last Vital Signs Temp 36.6 C 04/11/17 07:45 Pulse 67 04/11/17 07:45 Resp 14 04/11/17 07:45 BP 122/58 L 04/11/17 07:45 Pulse Ox 90 L 04/11/17 07:45 Weight - Most Recent: 104.326 kg Lab Results Last 24 Hrs: Laboratory Results - last 24 hr 04/11/17 04/11/17 Range/Units 06:12 06:12 WBC 12.42 H (4.0-11.0) K/uL RBC 3.96 L (4.30-5.90) M/uL Hgb 11.2 L (12.0-16.0) g/dL Hct 34.6 L (36.0-46.0) % MCV 87.4 (80.0-98.0) fL MCH 28.3 (27.0-32.0) pg MCHC 32.4 (31.0-37.0) g/dL RDW Std Deviation 45.0 (28.0-62.0) fl RDW Coeff of Felix 14 (11.0-15.0) % Plt Count 313 (150-400) K/uL MPV 9.40 (7.40-12.00) fL Neut % (Auto) 72.6 (48.0-80.0) % Lymph % (Auto) 18.4 (16.0-40.0) % [place] % (Auto) 8.3 (0.0-15.0) % Eos % (Auto) 0.6 (0.0-7.0) % Baso % (Auto) 0.1 (0.0-1.5) % Neut # (Auto) 9.0 H (1.4-5.7) K/uL Lymph # (Auto) 2.3 (0.6-2.4) K/uL [place] # (Auto) 1.0 H (0.0-0.8) K/uL Eos # (Auto) 0.1 (0.0-0.7) K/uL Baso # (Auto) 0.0 (0.0-0.1) K/uL Nucleated RBC % 0.0 /100WBC Nucleated RBCs # 0 K/uL Sodium 138 (136-146) mmol/L Potassium 4.1 (3.5-5.1) mmol/L Chloride 102 (98-110) mmol/L Carbon Dioxide 23 (21-31) mmol/L BUN 10 (6.0-23.0) mg/dL Creatinine 0.7 (0.6-1.5) mg/dL Est Cr Clr Drug Dosing 82.23 mL/min Estimated GFR (MDRD) > 60.0 ml/min Glucose 130 H (60-110) mg/dL Calcium 9.2 (8.8-10.8) mg/dL Med Orders - Current: Current Medications Lactated Ringer's (Ringers, Lactated) 1,000 mls @ 125 mls/hr IV ASDIRECTED [facility] Last Admin: 04/10/17 07:52 Dose: 125 mls/hr Ketorolac Tromethamine (Toradol) 30 mg IVPUSH Q6H PRN PRN Reason: Pain (severe 7-10) Stop: 04/15/17 11:20 Last Admin: 04/10/17 19:47 Dose: 30 mg Morphine Sulfate (Morphine) 2 mg IVPUSH Q2H PRN PRN Reason: Pain (severe 7-10) Morphine Sulfate (Morphine) 4 mg IVPUSH Q2H PRN PRN Reason: Pain (severe 7-10) Last Admin: 04/10/17 16:07 Dose: 4 mg Ondansetron HCl (Zofran) 4 mg IVPUSH Q6H PRN PRN Reason: Nausea/Vomiting Last Admin: 04/10/17 16:05 Dose: 4 mg Oxycodone/Acetaminophen (Percocet 325-5 Mg) 1 tab PO Q4H PRN PRN Reason: Pain (moderate 4-6) Oxycodone/Acetaminophen (Percocet 325-5 Mg) 2 tab PO Q4H PRN PRN Reason: Pain (moderate 4-6) Last Admin: 04/11/17 08:50 Dose: 2 tab Promethazine HCl (Phenergan) 25 mg IM Q6H PRN PRN Reason: Nausea/Vomiting Scopolamine (Transderm-Scop) 1.5 mg TRDERM Q72H PRN PRN Reason: Nausea Last Admin: 04/10/17 09:11 Dose: 1.5 mg Sodium Chloride (Saline Flush) 10 ml FLUSH ASDIRECTED PRN PRN Reason: Keep Vein Open Sodium Chloride (Saline Flush) 2.5 ml FLUSH ASDIRECTED PRN PRN Reason: Keep Vein Open Discontinued Medications Dexamethasone (Dexamethasone) Confirm Administered Dose 20 mg .ROUTE .STK-MED ONE Stop: 04/10/17 08:31 Diphenhydramine HCl (Benadryl) Confirm Administered Dose 50 mg .ROUTE .STK-MED ONE Stop: 04/10/17 08:31 Fentanyl (Sublimaze) Confirm Administered Dose 250 mcg .ROUTE .STK-MED ONE Stop: 04/10/17 08:31 Fentanyl (Sublimaze) Confirm Administered Dose 100 mcg .ROUTE .STK-MED ONE Stop: 04/10/17 10:35 Fluorescein Sodium (Ak-Fluor) Confirm Administered Dose 5 ml .ROUTE .STK-MED ONE Stop: 04/10/17 08:27 Furosemide (Lasix) Confirm Administered Dose 40 mg .ROUTE .STK-MED ONE Stop: 04/10/17 08:31 Glycopyrrolate (Robinul) Confirm Administered Dose 0.2 mg .ROUTE .STK-MED ONE Stop: 04/10/17 11:11 Hydromorphone HCl (Dilaudid) Confirm Administered Dose 2 mg .ROUTE .STK-MED ONE Stop: 04/10/17 08:31 Cefazolin Sodium/Dextrose 2 gm (/ Premix) 50 mls @ 100 mls/hr IV ONETIME ONE Stop: 04/09/17 09:11 Last Admin: 04/10/17 16:12 Dose: Not Given Acetaminophen (Ofirmev) Confirm Administered Dose 100 mls @ as directed IV .STK- MED ONE Stop: 04/10/17 09:01 Ketorolac Tromethamine (Toradol) 30 mg IVPUSH ONETIME ONE Stop: 04/10/17 11:21 Last Admin: 04/10/17 16:12 Dose: Not Given Midazolam HCl (Versed 1 Mg/Ml) Confirm Administered Dose 2 mg .ROUTE .STK-MED ONE Stop: 04/10/17 08:31 Mineral Oil/White Petrolatum (Lacri-Lube S.O.P Oint) Confirm Administered Dose 3.5 gm .ROUTE .STK-MED ONE Stop: 04/10/17 09:46 Neostigmine Methylsulfate (Neostigmine) Confirm Administered Dose 5 mg .ROUTE .STK-MED ONE Stop: 04/10/17 11:11 Octyl Cyanoacrylate (Dermabond Advance) Confirm Administered Dose 1 applic .ROUTE .STK-MED ONE Stop: 04/10/17 08:30 Ondansetron HCl (Zofran) Confirm Administered Dose 4 mg .ROUTE .STK-MED ONE Stop: 04/10/17 08:31 Propofol (Diprivan 20 Ml) Confirm Administered Dose 200 mg .ROUTE .STK-MED ONE Stop: 04/10/17 08:31 Rocuronium Orient (Zemuron) Confirm Administered Dose 100 mg .ROUTE .STK-MED ONE Stop: 04/10/17 08:31 Succinylcholine Chloride (Succinylcholine In Ns Pf) Confirm Administered Dose 200 mg .ROUTE .STK-MED ONE Stop: 04/10/17 09:44 - Exam Wound/Incisions: Healing Well General: Alert, Oriented HEENT: Pupils Equal Neck: Supple Lungs: Clear to Auscultation, Normal Respiratory Effort Cardiovascular: Regular Rate, Regular Rhythm GI/Abdominal Exam: Normal Bowel Sounds, Soft, Non-Tender, No Organomegaly, No Distention, No Abnormal Bruit, No Mass, Pelvis Stable Extremities: Normal Inspection, Normal Range of Motion, Non-Tender, No Pedal Edema, Normal Capillary Refill Skin: Warm, Dry, Intact Neurological: No New Focal Deficit Psy/Mental Status: Alert, Normal Affect, Normal Mood - Problem List Review Problem List Initiated/Reviewed/Updated: Yes - My Orders Last 24 Hours: Active Orders 24 hr Category Date Time Status Patient Status [ADT] Routine ADT 04/10/17 11:20 Active Antiembolic Devices [RC] PER UNIT ROUTINE Care 04/10/17 11:21 Active Notify Provider Vital Signs [RC] ASDIRECTED Care 04/10/17 11:20 Active Oxygen Therapy [RC] ASDIRECTED Care 04/10/17 11:20 Active RT Incentive Spirometry [RC] Q2HWA Care 04/10/17 11:20 Active Up With Assistance [RC] PER UNIT ROUTINE Care 04/10/17 11:20 Active Up ad Anayeli [RC] PER UNIT ROUTINE Care 04/10/17 11:20 Active Vital Signs [RC] PER UNIT ROUTINE Care 04/10/17 11:20 Active Regular Diet [DIET] Diet 04/10/17 Dinner Active Acetaminophen/oxyCODONE [Percocet 325-5 MG] Med 04/10/17 11:20 Active 1 tab PO Q4H PRN Acetaminophen/oxyCODONE [Percocet 325-5 MG] Med 04/10/17 11:20 Active 2 tab PO Q4H PRN Ketorolac [Toradol] Med 04/10/17 11:20 Active 30 mg IVPUSH Q6H PRN Morphine Med 04/10/17 11:20 Active 2 mg IVPUSH Q2H PRN Morphine Med 04/10/17 11:20 Active 4 mg IVPUSH Q2H PRN Ondansetron [Zofran] Med 04/10/17 11:20 Active 4 mg IVPUSH Q6H PRN Promethazine [Phenergan] Med 04/10/17 11:20 Active 25 mg IM Q6H PRN Scopolamine [Transderm-Scop] Med 04/10/17 09:02 Active 1.5 mg TRDERM Q72H PRN Peripheral IV Discontinue [OM.PC] Routine Oth 04/10/17 11:20 Ordered Sequential Compression Device [OM.PC] Per Unit Routine Oth 04/10/17 11:20 Ordered Resuscitation Status Routine Resus Stat 04/10/17 11:20 Ordered Medication Orders Lactated Ringer's (Ringers, Lactated) 1,000 mls @ 125 mls/hr IV ASDIRECTED [facility] Last Admin: 04/10/17 07:52 Dose: 125 mls/hr Ketorolac Tromethamine (Toradol) 30 mg IVPUSH Q6H PRN PRN Reason: Pain (severe 7-10) Stop: 04/15/17 11:20 Last Admin: 04/10/17 19:47 Dose: 30 mg Admin: 04/10/17 12:29 Dose: 30 mg Morphine Sulfate (Morphine) 2 mg IVPUSH Q2H PRN PRN Reason: Pain (severe 7-10) Morphine Sulfate (Morphine) 4 mg IVPUSH Q2H PRN PRN Reason: Pain (severe 7-10) Last Admin: 04/10/17 16:07 Dose: 4 mg Ondansetron HCl (Zofran) 4 mg IVPUSH Q6H PRN PRN Reason: Nausea/Vomiting Last Admin: 04/10/17 16:05 Dose: 4 mg Oxycodone/Acetaminophen (Percocet 325-5 Mg) 1 tab PO Q4H PRN PRN Reason: Pain (moderate 4-6) Oxycodone/Acetaminophen (Percocet 325-5 Mg) 2 tab PO Q4H PRN PRN Reason: Pain (moderate 4-6) Last Admin: 04/11/17 08:50 Dose: 2 tab Admin: 04/11/17 04:43 Dose: 2 tab Promethazine HCl (Phenergan) 25 mg IM Q6H PRN PRN Reason: Nausea/Vomiting Scopolamine (Transderm-Scop) 1.5 mg TRDERM Q72H PRN PRN Reason: Nausea Last Admin: 04/10/17 09:11 Dose: 1.5 mg Sodium Chloride (Saline Flush) 10 ml FLUSH ASDIRECTED PRN PRN Reason: Keep Vein Open Sodium Chloride (Saline Flush) 2.5 ml FLUSH ASDIRECTED PRN PRN Reason: Keep Vein Open - Assessment Assessment (Free Text/Narrative):: Status post laparoscopic hysterectomy postoperative day #1 the patient is doing well without any problem there is minimum vaginal bleeding she is on regular diet tolerated very well - Plan Plan (Free Text/Narrative):: Patient will be sent home today the postvasectomy instruction is given to the patient prescription for 7.5/325 Percocet is given to the patient for postoperative pain there is no restriction on her diet the patient is to come to the opposite 1 week for postoperative examination
== END 2017-04-11 09:45 | disposition home or self-care (01) ==
LOC: MW.SDS 07:41 → MW.OB 11:20 → MW.SDS 04-11 09:45
PROVIDERS: ATTEND Obstetrics & Gynecology
DX: D25.2 Subserosal leiomyoma of uterus (principal); N72 Inflammatory disease of cervix uteri; F41.9 Anxiety disorder, unspecified; E11.9 Type 2 diabetes mellitus without complications; I10 Essential (primary) hypertension; G43.909 Migraine, unspecified, not intractable, without status migrainosus; G25.81 Restless legs syndrome; K21.9 Gastro-esophageal reflux disease without esophagitis; J45.909 Unspecified asthma, uncomplicated; G47.30 Sleep apnea, unspecified; E66.9 Obesity, unspecified; F17.210 Nicotine dependence, cigarettes, uncomplicated; Z79.899 Other long term (current) drug therapy; Z79.84 Long term (current) use of oral hypoglycemic drugs; Z91.09 Other allergy status, other than to drugs and biological substances; Z91.018 Allergy to other foods; Z91.040 Latex allergy status; Z68.41 Body mass index [BMI] 40.0-44.9, adult; Z99.89 Dependence on other enabling machines and devices; Z87.442 Personal history of urinary calculi; Z90.49 Acquired absence of other specified parts of digestive tract; Z98.890 Other specified postprocedural states
CPT/HCPCS: 36415; 58571; 80048; 82962; 84703; 85025; 85027; 86850; 86900; 86901; A9270; J1100; J1170; J1200; J1885; J1940; J2250; J2270; J2405; J3010; J7120; 00840; 88309; J2704

== ENCOUNTER 2017-06-05 18:54 | Emergency (ER) | payer BC, OTHER ==
--- NOTE | 2017-06-05 19:30 | EDM.PDOC ---
ED HPI GENERAL MEDICAL PROBLEM - General Chief Complaint: Abdominal Pain Stated Complaint: ABD PAIN Time Seen by Provider: 06/05/17 19:08 Source of Information: Reports: Patient History Limitations: Reports: No Limitations - History of Present Illness INITIAL COMMENTS - FREE TEXT/NARRATIVE: HISTORY AND PHYSICAL: History of present illness: [28-year-old female presenting to emergency department with chief complaint of lower abdominal pain starting this morning with past medical history of hypertension, hyperlipidemia, type 2 diabetes, hysterectomy 04/10/16. Patient states that ever since she had her hysterectomy in March she has occasional lower abdominal pain. This pain is usually associated with gas or diarrhea. States that this morning she woke up and had some diarrhea as well as gas. She started having some lower abdominal pain. She also noticed some blood- tinged urine. She does have a history of renal calculi and does see a urologist Vitor Rdz. States that she had lithotripsy last done approximately 1 year ago. Patient states that this morning when she had the pain she took 1/2 tab of oxycodone that she had left over from her hysterectomy. This took the pain away completely and she rested throughout the day. This evening the pain started coming back. Pain was localized to her lower abdomen but did radiate somewhat to her back. Secondary to increased pain patient proceeded, emergency room for further evaluation. She did take another half of the oxycodone she had. Current pain is 6 out of 10 localized to lower abdomen and left flank. At worst pain was 10 out of 10. Patient currently denies any chest pain, palpitations, shortness of breath, syncopal episodes, or focal neurologic deficits. She also denies any systemic signs of infection including fever, chills, malaise, sore throat, nausea, or vomiting. On exam patient has left CVA tenderness as well as mild. Tenderness that radiates to the back when with deep palpation. 2009: CBC, CMP, unremarkable. UA shows large blood negative for nitrate or leukocyte esterase. Patient continues to be afebrile and non-tachycardic. 2039: CT abdomen/pelvis revealed a 4 mm calculus along the dependent portion of the urinary bladder. There was also some mild left-sided hydroureter/ hydronephrosis. As per radiologist findings were likely result of recently passed calculus from the left renal collecting system. They did say that a superimposed infection etiology could not be excluded and to correlate with lab findings. There is also some additional bilateral nonobstructive intrarenal calculi throughout the left kidney. 2047: Talked with Dr. Majano, urologist, Zenia huerta and advised him of patient and findings. He agreed that patient had already passed the stone and did not appear to have any infectious findings. He suggested following up with Dr. Hinton here in [place] or the other urologist she has been seeing Dr. Newberry when she visits her monthly. ] Review of systems: As per history of present illness and below otherwise all systems reviewed and negative. Past medical history: As per history of present illness and as reviewed below otherwise noncontributory. Surgical history: As per history of present illness and as reviewed below otherwise noncontributory. Social history: No reported history of drug or alcohol abuse. Family history: As per history of present illness and as reviewed below otherwise noncontributory. Physical exam: HEENT: Atraumatic, normocephalic, pupils reactive, negative for conjunctival pallor or scleral icterus, mucous membranes moist, throat clear, neck supple, nontender, trachea midline. Lungs: Clear to auscultation, breath sounds equal bilaterally, chest nontender. Heart: S1S2, regular, negative for clicks, rubs, or JVD. Abdomen: Soft, nondistended, nontender. Negative for masses or hepatosplenomegaly. Left CVA tenderness. Pelvis: Stable nontender. Genitourinary: Deferred. Rectal: Deferred. Extremities: Atraumatic, negative for cords or calf pain. Neurovascular unremarkable. Neuro: Awake, alert, oriented. Cranial nerves II through XII unremarkable. Cerebellum unremarkable. Motor and sensory unremarkable throughout. Exam nonfocal. Diagnostics: [CBC, CMP, UA, UC, CT abdomen pelvis] Therapeutics: [] Impression: [Renal calculi] Plan: [See H&P. Patient was discharged in good condition with recommendation to follow -up with urologist as well as a prescription for Flomax and oxycodone 5mg #4 for pain medication. She was instructed to push fluids and strain her urine. She was given strainer and told to bring any collected calculi 2 her urologist for analysis.] LLQ Pain Score (Numeric/FACES): 7 - Related Data Allergies Allergy/AdvReac Type Severity Reaction Status Date / Time banana Allergy Itching Verified 06/05/17 19:01 latex Allergy "due to Verified 06/05/17 19:01 banana allergy" cats Allergy Mild Sneezing Uncoded 06/05/17 19:01 cloth bandaids Allergy Mild Rash Uncoded 06/05/17 19:01 fruit Allergy Mild scratchy Uncoded 06/05/17 19:01 throat seasonal allergies Allergy Mild Sneezing Uncoded 06/05/17 19:01 Home Meds: Home Meds Venlafaxine [Effexor XR] 150 mg PO BEDTIME 12/30/14 [History] Lisinopril 1 tab PO DAILY 06/11/16 [History] Doxycycline [Vibramycin] 100 mg PO BID #20 tablet 03/25/17 [Rx] Magnesium 250 mg PO DAILY 03/25/17 [History] Pantoprazole [ProTONIX] 40 mg PO ONETIME 03/25/17 [History] Cholecalciferol (Vitamin D3) [Vitamin D3] 1 tab PO DAILY 04/07/17 [History] Cyanocobalamin (Vitamin B-12) [Vitamin B-12] 50 mcg PO DAILY 04/07/17 [History] Divalproex Sodium 500 mg PO BEDTIME 04/07/17 [History] Gabapentin [Neurontin] 2 tab PO BEDTIME 04/07/17 [History] L.acidoph,Paracasei, B.lactis [Probiotic] 1 tab PO BEDTIME 04/07/17 [History] Loratadine [Claritin] 10 mg PO DAILY 04/07/17 [History] PNV95/Ferrous Fumarate/FA [ Vitamin Tablet] 1 tab PO BEDTIME 04/07/17 [ History] Saxagliptin [Onglyza] 5 mg PO DAILY 04/07/17 [History] Sucralfate 1 gm PO BID 04/07/17 [History] Tamsulosin [Tamsulosin 24 Hr] 0.4 mg PO DAILY #7 cap.er 06/05/17 [Rx] Past Medical History HEENT History: Reports: Impaired Vision, Other (See Below) Other HEENT History: wears glasses Cardiovascular History: Reports: Hypertension Respiratory History: Reports: Asthma, Sleep Apnea Other Respiratory History: asthma as a child, uses CPAP Gastrointestinal History: Reports: GERD Genitourinary History: Reports: Renal Calculus 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: 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 History: Reports: Fracture Neurological History: Reports: Migraines Psychiatric History: Reports: Anxiety, Depression Endocrine/Metabolic History: Reports: Diabetes, Type II, Obesity/BMI 30+ Hematologic History: Reports: None Immunologic History: Reports: None Oncologic (Cancer) History: Reports: None - Infectious Disease History Infectious Disease History: Reports: None - Past Surgical History Head Surgeries/Procedures: Reports: None GI Surgical History: Reports: Cholecystectomy Female Surgical History: Reports: Section, Hysterectomy, Lithotripsy /ESWL 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 Surgical History: Reports: Other (See Below) Other 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 Surgeries/Procedures:: surgical tx for broken left wrist ( external fixator) Oncologic Surgical History: Reports: None Social & Family History - Family History Family Medical History: Noncontributory - Tobacco Use Smoking Status *Q: Current Every Day Smoker Years of Tobacco use: 8 Packs/Tins Daily: 0.5 Second Hand Smoke Exposure: No - Caffeine Use Caffeine Use: Reports: Coffee Caffeine Use Comment: 2 cups daily - Recreational Drug Use Recreational Drug Use: No ED ROS GENERAL - Review of Systems Review Of Systems: See Below ED EXAM, GENERAL - Physical Exam Exam: See Below Course - Vital Signs Last Recorded V/S: Last Vital Signs Temp 98.3 F 06/05/17 19:01 Pulse 86 06/05/17 19:01 Resp 18 06/05/17 19:01 BP 155/88 H 06/05/17 19:01 Pulse Ox 97 06/05/17 19:01 - Orders/Labs/Meds Orders: Active Orders 24 hr Category Date Time Status Abdomen Pelvis wo Cont [CT] Stat Exams 06/05/17 19:28 Taken CULTURE URINE [RM] Stat Lab 06/05/17 19:10 Received Labs: Laboratory Tests 06/05/17 06/05/17 06/05/17 Range/Units 19:10 19:39 19:39 WBC 10.28 (4.0-11.0) K/uL RBC 4.16 L (4.30-5.90) M/uL Hgb 12.0 (12.0-16.0) g/dL Hct 35.9 L (36.0-46.0) % MCV 86.3 (80.0-98.0) fL MCH 28.8 (27.0-32.0) pg MCHC 33.4 (31.0-37.0) g/dL RDW Std Deviation 43.2 (28.0-62.0) fl RDW Coeff of Felix 14 (11.0-15.0) % Plt Count 286 (150-400) K/uL MPV 9.50 (7.40-12.00) fL Neut % (Auto) 64.2 (48.0-80.0) % Lymph % (Auto) 23.4 (16.0-40.0) % [place] % (Auto) 7.4 (0.0-15.0) % Eos % (Auto) 4.5 (0.0-7.0) % Baso % (Auto) 0.5 (0.0-1.5) % Neut # (Auto) 6.6 H (1.4-5.7) K/uL Lymph # (Auto) 2.4 (0.6-2.4) K/uL [place] # (Auto) 0.8 (0.0-0.8) K/uL Eos # (Auto) 0.5 (0.0-0.7) K/uL Baso # (Auto) 0.1 (0.0-0.1) K/uL Nucleated RBC % 0.0 /100WBC Nucleated RBCs # 0 K/uL Sodium 137 (136-145) mmol/L Potassium 4.1 (3.5-5.1) mmol/L Chloride 100 (98-107) mmol/L Carbon Dioxide 24.0 (21.0-32.0) mmol/L BUN 12 (7.0-18.0) mg/dL Creatinine 0.8 (0.6-1.0) mg/dL Est Cr Clr Drug Dosing 71.95 mL/min Estimated GFR (MDRD) > 60.0 ml/min Glucose 175 H (74-106) mg/dL Calcium 9.1 (8.5-10.1) mg/dL Total Bilirubin 0.3 (0.2-1.0) mg/dL AST 51 H (15-37) IU/L ALT 43 (14-63) IU/L Alkaline Phosphatase 58 (46-116) U/L Total Protein 7.3 (6.4-8.2) g/dL Albumin 3.4 (3.4-5.0) g/dL Globulin 3.9 H (2.0-3.5) g/dL Albumin/Globulin Ratio 0.9 L (1.3-2.8) Urine Color YELLOW Urine Appearance CLEAR Urine pH 5.5 (5.0-8.0) Ur Specific [place] 1.020 (1.001-1.035) Urine Protein TRACE (NEGATIVE) mg/dL Urine Glucose (UA) NEGATIVE (NEGATIVE) mg/dL Urine Ketones NEGATIVE (NEGATIVE) mg/dL Urine Occult Blood LARGE H (NEGATIVE) Urine Nitrite NEGATIVE (NEGATIVE) Urine Bilirubin NEGATIVE (NEGATIVE) Urine Urobilinogen 0.2 (<2.0) EU/dL Ur Leukocyte Esterase NEGATIVE (NEGATIVE) Urine RBC 80-85 (0-2/HPF) Urine WBC 0-2 (0-5/HPF) Ur Epithelial Cells FEW (NONE-FEW) Urine Bacteria FEW (NEGATIVE) Departure - Departure Time of Disposition: 21:01 Disposition: Home, Self-Care 01 Condition: Good Clinical Impression: Renal calculi - Discharge Information Prescriptions: Tamsulosin [Tamsulosin 24 Hr] 0.4 mg PO DAILY #7 cap.er Referrals: PCP,None [Primary Care Provider] - Forms: ED Department Discharge - My Orders Last 24 Hours: My Active Orders 06/05/17 19:10 CULTURE URINE [RM] Stat 06/05/17 19:28 Abdomen Pelvis wo Cont [CT] Stat - Assessment/Plan Last 24 Hours: My Active Orders 06/05/17 19:10 CULTURE URINE [RM] Stat 06/05/17 19:28 Abdomen Pelvis wo Cont [CT] Stat
[2017-06-05 20:13] LABS: CHLORIDE,CL 100 mmol/L (98-107); SODIUM,NA 137 mmol/L (136-145)
[2017-06-06 00:24] VITALS: BP 126/69
--- NOTE | 2017-06-06 10:19 | CT ---
EXAM DATE: 06/05/17 PATIENT'S AGE: 36 Patient: DOUGLAS ZABALA Facility: [place], [place] Site . Site : 1980 Study: CT Abdomen/Pelvis W/O [id number] 8:00:22 PM Ordering Physician: Anderson Price Final Report: INDICATION: L flank pain TECHNIQUE: CT abdomen and pelvis without contrast. COMPARISON: March 25, 2017 FINDINGS: Lower chest: Unremarkable. Liver: Diffuse fatty infiltration of the liver. Nonspecific hepatomegaly. Spleen: Unremarkable. Pancreas: Unremarkable. Gallbladder and bile ducts: Cholecystectomy. Kidneys: 4 mm calculus along the dependent portion of the urinary bladder. Mild left-sided hydroureter/ hydronephrosis. Additional bilateral nonobstructive intrarenal calculi throughout the left kidney. . Adrenal glands: Unremarkable. GI tract: Unremarkable. Appendix is normal. Vascular structures: Scattered atherosclerotic disease. . Lymph nodes: Unremarkable. Miscellaneous: Unremarkable. No free air or significant free fluid. Pelvic Organs: Hysterectomy. . Bones: Unremarkable for age. IMPRESSION: 1. 4 mm calculus along the dependent portion of the urinary bladder. Mild left- sided hydroureter/ hydronephrosis. Findings likely on the basis of a recently passed calculus from the left renal collecting system. Superimposed infectious etiology cannot be excluded. Please correlate with laboratory findings. Additional bilateral nonobstructive intrarenal calculi throughout the left kidney. 2. Diffuse fatty infiltration of liver. Nonspecific splenomegaly. Dictated by Merlin Wright MD @ 06/05/2017 8:35:35 PM Dictated by: Merlin Wright MD @ 06/05/2017 20:35:53 (Electronic Signature) Report Signed by Proxy. [facility] CENTERJanna
== END 2017-06-05 21:10 | disposition home or self-care (01) ==
LOC: MW.ED 18:54
DX: N13.2 Hydronephrosis with renal and ureteral calculous obstruction (principal); I10 Essential (primary) hypertension; E11.9 Type 2 diabetes mellitus without complications; F17.210 Nicotine dependence, cigarettes, uncomplicated; E78.5 Hyperlipidemia, unspecified; Z91.040 Latex allergy status; Z91.018 Allergy to other foods; Z79.899 Other long term (current) drug therapy; Z90.710 Acquired absence of both cervix and uterus
CPT/HCPCS: 36415; 74176; 74176-26; 80053; 81001; 85025; 87086; 99283; 99284-25

== ENCOUNTER 2017-06-11 15:24 | Emergency (ER) | payer BC, OTHER ==
--- NOTE | 2017-06-11 15:28 | EDM.PDOC ---
ED HPI GENERAL MEDICAL PROBLEM - General Chief Complaint: Abdominal Pain Stated Complaint: ABDOMINAL PAIN Time Seen by Provider: 06/11/17 15:25 Source of Information: Reports: Patient History Limitations: Reports: No Limitations - History of Present Illness INITIAL COMMENTS - FREE TEXT/NARRATIVE: HISTORY AND PHYSICAL: History of present illness: He shouldn't is a 36-year-old female who presents to the emergency room with complaints of abdominal pain and nausea. She states she was on a break from work when she felt like she was going to have diarrhea. She sat down and had loose stools as she was bearing down she said she felt a "pop" to her low abdomen which radiated pain up to her epigastrium and radiates to her back, bilaterally. Soon after she became nauseated. He denies any fever, chills, chest pain or shortness of breath. Denies any chance of , total hysterectomy. Review of systems: As per history of present illness and below otherwise all systems reviewed and negative. Past medical history: As per history of present illness and as reviewed below otherwise noncontributory. Surgical history: As per history of present illness and as reviewed below otherwise noncontributory. Social history: No reported history of drug or alcohol abuse. Family history: As per history of present illness and as reviewed below otherwise noncontributory. Physical exam: Gen.: Well-developed and well-nourished 36-year-old female. Alert and oriented. Nontoxic appearing and in no acute distress. HEENT: Atraumatic, normocephalic, pupils reactive, negative for conjunctival pallor or scleral icterus, mucous membranes moist, throat clear, neck supple, nontender, trachea midline. Lungs: Clear to auscultation, breath sounds equal bilaterally, chest nontender. Heart: S1S2, regular rate and rhythm without overt murmur Abdomen: Soft, obese, nondistended, diffuse tenderness throughout. Negative for masses or hepatosplenomegaly. Negative for costovertebral tenderness. Pelvis: Stable nontender. Genitourinary: Deferred. Rectal: Deferred. Extremities: Atraumatic, moves all extremities per self without difficulty or deficits. She is negative for cords or calf pain. Neurovascular unremarkable. Neuro: Awake, alert, oriented. Cranial nerves II through XII unremarkable. Cerebellum unremarkable. Motor and sensory unremarkable throughout. Exam nonfocal. 06/05/2017: Patient was seen in the emergency room for lower abdominal pain. A CT of the abdomen and pelvis was done at this time which showed a kidney stone. The ER provider did consult the urologist on-call who stated that this would be easily passable and for her to follow up as an outpatient with urology. Today's CT scan shows a resolution of a previous left UVJ stone. Unchanged 1 cm lower pole calculus. Findings were shared with the patient. She states that she was more concerned that her bowel had ruptured. There is no evidence of any GI involvement. Normal appendix. She currently is taking Flomax and oxycodone. She states she does have his medications still available to her. We discussed follow -up with urology which she voices understanding. Diagnostics: CBC, CMP, UA, CT abdomen and pelvis Therapeutics: The fluid, Zofran, Toradol Impression: Abdominal pain Known kidney stone Plan: 1. Please continue your Flomax and push oral fluids. 2. Tylenol and/or ibuprofen as needed for pain management. 3. Eloped with urology if he continued to have discomfort. Return to the ED as needed and as discussed. Definitive disposition and diagnosis as appropriate pending reevaluation and review of above. Abdominal Pain Score (Numeric/FACES): 8 - Related Data Allergies Allergy/AdvReac Type Severity Reaction Status Date / Time banana Allergy Itching Verified 06/11/17 15:42 latex Allergy "due to Verified 06/11/17 15:42 banana allergy" cats Allergy Mild Sneezing Uncoded 06/05/17 19:01 cloth bandaids Allergy Mild Rash Uncoded 06/05/17 19:01 fruit Allergy Mild scratchy Uncoded 06/05/17 19:01 throat seasonal allergies Allergy Mild Sneezing Uncoded 06/05/17 19:01 Home Meds: Home Meds Venlafaxine [Effexor XR] 150 mg PO BEDTIME 12/30/14 [History] Lisinopril 1 tab PO DAILY 06/11/16 [History] Doxycycline [Vibramycin] 100 mg PO BID #20 tablet 03/25/17 [Rx] Magnesium 250 mg PO DAILY 03/25/17 [History] Pantoprazole [ProTONIX] 40 mg PO ONETIME 03/25/17 [History] Cholecalciferol (Vitamin D3) [Vitamin D3] 1 tab PO DAILY 04/07/17 [History] Cyanocobalamin (Vitamin B-12) [Vitamin B-12] 50 mcg PO DAILY 04/07/17 [History] Divalproex Sodium 500 mg PO BEDTIME 04/07/17 [History] Gabapentin [Neurontin] 2 tab PO BEDTIME 04/07/17 [History] L.acidoph,Paracasei, B.lactis [Probiotic] 1 tab PO BEDTIME 04/07/17 [History] Loratadine [Claritin] 10 mg PO DAILY 04/07/17 [History] PNV95/Ferrous Fumarate/FA [ Vitamin Tablet] 1 tab PO BEDTIME 04/07/17 [ History] Saxagliptin [Onglyza] 5 mg PO DAILY 04/07/17 [History] Sucralfate 1 gm PO BID 04/07/17 [History] Tamsulosin [Tamsulosin 24 Hr] 0.4 mg PO DAILY #7 cap.er 06/05/17 [Rx] Past Medical History HEENT History: Reports: Impaired Vision, Other (See Below) Other HEENT History: wears glasses Cardiovascular History: Reports: Hypertension Respiratory History: Reports: Asthma, Sleep Apnea Other Respiratory History: asthma as a child, uses CPAP Gastrointestinal History: Reports: GERD Genitourinary History: Reports: Renal Calculus [employer] History: Reports: 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 History: Reports: Fracture Neurological History: Reports: Migraines Psychiatric History: Reports: Anxiety, Depression Endocrine/Metabolic History: Reports: Diabetes, Type II, Obesity/BMI 30+ Hematologic History: Reports: None Immunologic History: Reports: None Oncologic (Cancer) History: Reports: None - Infectious Disease History Infectious Disease History: Reports: None - Past Surgical History Head Surgeries/Procedures: Reports: None GI Surgical History: Reports: Cholecystectomy Female Surgical History: Reports: Section, Hysterectomy, Lithotripsy /ESWL 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 Surgical History: Reports: Other (See Below) Other 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 Surgeries/Procedures:: surgical tx for broken left wrist ( external fixator) Oncologic Surgical History: Reports: None Social & Family History - Family History Family Medical History: Noncontributory - Tobacco Use Smoking Status *Q: Current Every Day Smoker Years of Tobacco use: 8 Packs/Tins Daily: 0.5 Second Hand Smoke Exposure: No - Caffeine Use Caffeine Use: Reports: Coffee Caffeine Use Comment: 2 cups daily - Recreational Drug Use Recreational Drug Use: No ED ROS GENERAL - Review of Systems Review Of Systems: ROS reveals no pertinent complaints other than HPI. ED EXAM, GI/ABD - Physical Exam Exam: See Below (See dictation) Course - Vital Signs Last Recorded V/S: Last Vital Signs Temp 98.5 F 06/11/17 18:10 Pulse 76 06/11/17 18:10 Resp 14 06/11/17 18:10 BP 114/57 L 06/11/17 18:10 Pulse Ox 98 06/11/17 18:10 - Orders/Labs/Meds Orders: Active Orders 24 hr Category Date Time Status Abdomen Pelvis w Cont [CT] Stat Exams 06/11/17 15:27 Taken Labs: Laboratory Tests 06/11/17 06/11/17 06/11/17 Range/Units 15:57 15:57 18:05 WBC 9.89 (4.0-11.0) K/uL RBC 4.26 L (4.30-5.90) M/uL Hgb 12.1 (12.0-16.0) g/dL Hct 36.5 (36.0-46.0) % MCV 85.7 (80.0-98.0) fL MCH 28.4 (27.0-32.0) pg MCHC 33.2 (31.0-37.0) g/dL RDW Std Deviation 41.9 (28.0-62.0) fl RDW Coeff of Felix 14 (11.0-15.0) % Plt Count 318 (150-400) K/uL MPV 9.50 (7.40-12.00) fL Neut % (Auto) 61.7 (48.0-80.0) % Lymph % (Auto) 27.3 (16.0-40.0) % [place] % (Auto) 6.4 (0.0-15.0) % Eos % (Auto) 4.0 (0.0-7.0) % Baso % (Auto) 0.6 (0.0-1.5) % Neut # (Auto) 6.1 H (1.4-5.7) K/uL Lymph # (Auto) 2.7 H (0.6-2.4) K/uL [place] # (Auto) 0.6 (0.0-0.8) K/uL Eos # (Auto) 0.4 (0.0-0.7) K/uL Baso # (Auto) 0.1 (0.0-0.1) K/uL Nucleated RBC % 0.0 /100WBC Nucleated RBCs # 0 K/uL Sodium 136 (136-145) mmol/L Potassium 4.0 (3.5-5.1) mmol/L Chloride 100 (98-107) mmol/L Carbon Dioxide 24.4 (21.0-32.0) mmol/L BUN 11 (7.0-18.0) mg/dL Creatinine 0.8 (0.6-1.0) mg/dL Est Cr Clr Drug Dosing 71.95 mL/min Estimated GFR (MDRD) > 60.0 ml/min Glucose 114 H (74-106) mg/dL Calcium 9.2 (8.5-10.1) mg/dL Total Bilirubin 0.1 L (0.2-1.0) mg/dL AST 56 H (15-37) IU/L ALT 48 (14-63) IU/L Alkaline Phosphatase 59 (46-116) U/L Total Protein 7.6 (6.4-8.2) g/dL Albumin 3.6 (3.4-5.0) g/dL Globulin 4.0 H (2.0-3.5) g/dL Albumin/Globulin Ratio 0.9 L (1.3-2.8) Urine Color YELLOW Urine Appearance CLEAR Urine pH 6.0 (5.0-8.0) Ur Specific [place] <= 1.005 (1.001-1.035) Urine Protein NEGATIVE (NEGATIVE) mg/dL Urine Glucose (UA) NEGATIVE (NEGATIVE) mg/dL Urine Ketones NEGATIVE (NEGATIVE) mg/dL Urine Occult Blood NEGATIVE (NEGATIVE) Urine Nitrite NEGATIVE (NEGATIVE) Urine Bilirubin NEGATIVE (NEGATIVE) Urine Urobilinogen 0.2 (<2.0) EU/dL Ur Leukocyte Esterase NEGATIVE (NEGATIVE) Urine RBC 0-1 (0-2/HPF) Urine WBC 0-1 (0-5/HPF) Ur Epithelial Cells RARE (NONE-FEW) Urine Bacteria RARE (NEGATIVE) Meds: Medications Discontinued Medications Generic Name Dose Route Start Last Admin Trade Name Freq PRN Reason Stop Dose Admin Sodium Chloride 1,000 mls @ 999 mls/hr 06/11/17 16:00 06/11/17 17:02 Normal Saline IV 06/11/17 17:00 999 mls/hr STAT ONE Administration Iopamidol 100 ml 06/11/17 17:48 06/11/17 17:49 Isovue Multipack-370 (76%) IVPUSH 06/11/17 17:49 100 ml ONETIME STA Administration Ketorolac Tromethamine 30 mg 06/11/17 16:00 06/11/17 17:08 Toradol IVPUSH 06/11/17 16:01 30 mg ONETIME ONE Administration Ondansetron HCl 4 mg 06/11/17 16:00 06/11/17 17:04 Zofran IVPUSH 06/11/17 16:01 4 mg ONETIME ONE Administration Departure - Departure Time of Disposition: 18:39 Disposition: Home, Self-Care 01 Clinical Impression: History of kidney stones Abdominal pain Qualifiers: Abdominal location: generalized Qualified Code(s): R10.84 - Generalized abdominal pain - Discharge Information Instructions: Abdominal Pain, Adult Referrals: PCP,None [Primary Care Provider] - Forms: ED Department Discharge Additional Instructions: My general discharge The following information is given to patients seen in the emergency department who are being discharged to home. This information is to outline your options for follow-up care. We provide all patients seen in our emergency department with a follow-up referral. The need for follow-up, as well as the timing and circumstances, are variable depending upon the specifics of your emergency department visit. If you don't have a primary care physician on staff, we will provide you with a referral. We always advise you to contact your personal physician following an emergency department visit to inform them of the circumstance of the visit and for follow-up with them and/or the need for any referrals to a consulting specialist. The emergency department will also refer you to a specialist when appropriate. This referral assures that you have the opportunity for follow-up care with a specialist. All of these measure are taken in an effort to provide you with optimal care, which includes your follow-up. Under all circumstances we always encourage you to contact your private physician who remains a resource for coordinating your care. When calling for follow-up care, please make the office aware that this follow-up is from your recent emergency room visit. If for any reason you are refused follow-up, please contact the [facility] Emergency Department at and asked to speak to the emergency department charge nurse. [facility] - Neurology Professional Building [address] [place] [address], [address] [place] [address] 1. Please continue your Flomax and push oral fluids. 2. Tylenol and/or ibuprofen as needed for pain management. 3. Eloped with urology if he continued to have discomfort. Return to the ED as needed and as discussed. - My Orders Last 24 Hours: My Active Orders 06/11/17 15:27 Abdomen Pelvis w Cont [CT] Stat - Assessment/Plan Last 24 Hours: My Active Orders 06/11/17 15:27 Abdomen Pelvis w Cont [CT] Stat
[2017-06-11] MEDS ORDERED: Sodium Chloride 0.9% 1,000 ML IV ONE (16:00)
[2017-06-11] MEDS ORDERED: Ondansetron 4 MG/2 ML SDV IVPUSH ONE (16:00)
[2017-06-11] MEDS ORDERED: Ketorolac 30 MG/ML SDV IVPUSH ONE (16:00)
[2017-06-11 16:38] LABS: CHLORIDE,CL 100 mmol/L (98-107); SODIUM,NA 136 mmol/L (136-145)
[2017-06-11] MEDS ORDERED: Iopamidol 755 MG/ML 500 ML Multipack Bottle IVPUSH STA (17:48)
[2017-06-11 19:14] VITALS: BP 106/60
--- NOTE | 2017-06-12 10:43 | CT ---
EXAM DATE: 06/11/17 PATIENT'S AGE: 36 Patient: DOUGLAS ZABALA Facility: [place], [place] Site . Site : 1980 Study: CT Abdomen/Pelvis [id number] 5:46:31 PM Ordering Physician: Doctor Valencia Final Report: INDICATION: Abdominal pain. TECHNIQUE: CT abdomen and pelvis acquired with 100 mL Isovue 370 IV contrast. COMPARISON: [address] FINDINGS: Lower chest: Unremarkable. Liver: Moderate low-attenuation steatosis diffusely. Moderate enlargement with craniocaudal length of 23 cm. Spleen: Unremarkable. Pancreas: Unremarkable. Gallbladder and bile ducts: Cholelithiasis. No ductal dilatation. Kidneys: Multiple small parenchymal cysts of both kidneys. 1 cm nonobstructing lower pole calyceal calculus left kidney. 1 mm stone bilateral lower pole above this is smaller than before. Previous hydronephrosis and hydroureter has resolved. No stones in the left ureter or urinary bladder. No nephrolithiasis on the right. Adrenal glands: Unremarkable. GI tract: Unremarkable. Appendix is normal. Vascular structures: Negative. No sign of aneurysm. Lymph nodes: Unremarkable. Miscellaneous: Unremarkable. No free air or significant free fluid. Pelvic Organs: None apparent, presumably surgically removed. Bones: Mild levoscoliosis upper lumbar spine could be positional. IMPRESSION: Resolution of previous left UVJ stone and mild obstruction left kidney. Unchanged 1 cm lower pole calculus. Slightly smaller now 1 mm lateral lower pole caliceal calculus multiple benign cysts of each kidney. Hepatomegaly. Moderately prominent steatosis. Please note that all CT scans at this facility use dose modulation, iterative reconstruction, and/or weight-based dosing when appropriate to reduce radiation dose to as low as reasonably achievable. Dictated by Mumtaz Shah MD @ Jun 11 2017 6:07PM (Electronic Signature) Report Signed by Proxy. HOLLY
== END 2017-06-11 18:55 | disposition home or self-care (01) ==
LOC: MW.ED 15:24
DX: R10.84 Generalized abdominal pain (principal); I10 Essential (primary) hypertension; E11.9 Type 2 diabetes mellitus without complications; F17.210 Nicotine dependence, cigarettes, uncomplicated; Z91.048 Other nonmedicinal substance allergy status; Z91.018 Allergy to other foods; Z79.899 Other long term (current) drug therapy; Z87.442 Personal history of urinary calculi
CPT/HCPCS: 36415; 74177; 80053; 81001; 85025; 96361; 96374; 96375; 99284; J1885; J2405; J7040; Q9967

== ENCOUNTER 2017-10-11 17:15 | Inpatient (IN) | payer BC, OTHER ==
[2017-10-11] MEDS ORDERED: Sodium Chloride 0.9% 1,000 ML IV ONE ×2 (17:29→19:30)
[2017-10-11] MEDS ORDERED: Ondansetron 4 MG/2 ML SDV IVPUSH ONE (17:31)
[2017-10-11] MEDS ORDERED: Alum Hydrox/Mag Hydrox/Simeth 15 ML, Metoclopramide 5 MG, Lidocaine 2% 5 ML PO ONE ×3 (17:31)
--- NOTE | 2017-10-11 17:32 | EDM.PDOC ---
ED HPI GENERAL MEDICAL PROBLEM - General Chief Complaint: Abdominal Pain Stated Complaint: ABDOMINAL PAIN Time Seen by Provider: 10/11/17 17:22 Source of Information: Reports: Patient History Limitations: Reports: No Limitations - History of Present Illness INITIAL COMMENTS - FREE TEXT/NARRATIVE: HISTORY AND PHYSICAL: History of present illness: Patient is a 37-year-old female who presents to the emergency room today with complaints of epigastric pain and nausea. Patient was recently seen by a urologist at for lithotripsy. She states she has had the epigastric pain prior to this procedure on Friday, and continued post procedure as well (in total approx 1 week). Denies any fever, chills, chest pain or shortness of breath. Denies any vomiting , diarrhea, constipation or dysuria. Denies any chance of ; hysterectomy. Has had a cholecystectomy Review of systems: As per history of present illness and below otherwise all systems reviewed and negative. Past medical history: As per history of present illness and as reviewed below otherwise noncontributory. Surgical history: As per history of present illness and as reviewed below otherwise noncontributory. Social history: No reported history of drug or alcohol abuse. Family history: As per history of present illness and as reviewed below otherwise noncontributory. Physical exam: General: Developed and well-nourished 37-year-old female. Alert and oriented. Nontoxic appearing and in no acute distress. HEENT: Atraumatic, normocephalic, pupils equal and reactive bilaterally, negative for conjunctival pallor or scleral icterus, mucous membranes moist, throat clear, neck supple, nontender, trachea midline. No drooling or trismus noted. No meningeal signs Lungs: Clear to auscultation, breath sounds equal bilaterally, chest nontender. Heart: S1S2, regular rate and rhythm without overt murmur Abdomen: Soft, nondistended, obese, epigastric tenderness with palpation. Negative for masses or hepatosplenomegaly. Negative for costovertebral tenderness. Pelvis: Stable nontender. Genitourinary: Deferred. Rectal: Deferred. Skin: Intact, warm, dry. No lesions or rashes noted. Extremities: Atraumatic, negative for cords or calf pain. Neurovascular unremarkable. Neuro: Awake, alert, oriented. Cranial nerves II through XII unremarkable. Cerebellum unremarkable. Motor and sensory unremarkable throughout. Exam nonfocal. Notes: Patient has a white count of 18.7. H pylori infection. Patient is hyponatremic with a sodium of 124. Patient states she still has epigastric abdominal pain. CT of the abdomen shows inflammatory changes around the pancreatic tail it's compatible with acute pancreatitis. Fatty infiltration of the liver. Nonobstructing left renal stone. 3.5 cm right ovarian cyst. She is aware of her findings and is agreeable to staying overnight. I did contact Dr. Morales, hospitalist, and inform her of this patient. She is agreeable to keeping her for observation. At this time Dr. Morales would like just IV fluids and Protonix, hold on antibiotics at this time. VSS. Diagnostics: CBC, CMP, UA, H. pylori, amylase, lipase, CT abdomen/pelvis Therapeutics: IV fluid, Zofran, GI cocktail, Protonix Impression: Epigastric pain + H.Pylori Infection Hyponatremia Plan: Observation admission Definitive disposition and diagnosis as appropriate pending reevaluation and review of above. Duration: Day(s): Location: Reports: Abdomen Abdominal Pain Score (Numeric/FACES): 9 - Related Data Allergies Allergy/AdvReac Type Severity Reaction Status Date / Time banana Allergy Itching Verified 10/11/17 17:31 latex Allergy "due to Verified 10/11/17 17:31 banana allergy" cats Allergy Mild Sneezing Uncoded 10/11/17 17:31 cloth bandaids Allergy Mild Rash Uncoded 10/11/17 17:31 fruit Allergy Mild scratchy Uncoded 10/11/17 17:31 throat seasonal allergies Allergy Mild Sneezing Uncoded 10/11/17 17:31 Home Meds: Home Meds Venlafaxine [Effexor XR] 150 mg PO BEDTIME 12/30/14 [History] Lisinopril 1 tab PO DAILY 06/11/16 [History] Magnesium 250 mg PO DAILY 03/25/17 [History] Pantoprazole [ProTONIX] 40 mg PO ONETIME 03/25/17 [History] Cholecalciferol (Vitamin D3) [Vitamin D3] 1 tab PO DAILY 04/07/17 [History] Cyanocobalamin (Vitamin B-12) [Vitamin B-12] 50 mcg PO DAILY 04/07/17 [History] Divalproex Sodium 500 mg PO BEDTIME 04/07/17 [History] Gabapentin [Neurontin] 2 tab PO BEDTIME 04/07/17 [History] L.acidoph,Paracasei, B.lactis [Probiotic] 1 tab PO BEDTIME 04/07/17 [History] Loratadine [Claritin] 10 mg PO DAILY 04/07/17 [History] PNV95/Ferrous Fumarate/FA [ Vitamin Tablet] 1 tab PO BEDTIME 04/07/17 [ History] Saxagliptin [Onglyza] 5 mg PO DAILY 04/07/17 [History] Sucralfate 1 gm PO BID 04/07/17 [History] Allopurinol [Zyloprim] 0 mg PO DAILY 10/11/17 [History] Cyanocobalamin (Vitamin B-12) [Vitamin B-12] 500 mcg PO DAILY 10/11/17 [History] Cyanocobalamin (Vitamin B-12) [Vitamin B-12] 500 mcg PO DAILY 10/11/17 [History] Hydrochlorothiazide [Microzide] 0 mg PO DAILY 10/11/17 [History] Potassium Citrate Monohydrate [Potassium Citrate] 0 mg PO DAILY 10/11/17 [ History] Tamsulosin [Tamsulosin 24 Hr] 0.4 mg PO BEDTIME 10/11/17 [History] Venlafaxine [Effexor XR] 75 mg PO BEDTIME 10/11/17 [History] hydrOXYzine HCl [Atarax] 50 mg PO BEDTIME 10/11/17 [History] Past Medical History HEENT History: Reports: Impaired Vision, Other (See Below) Other HEENT History: wears glasses Cardiovascular History: Reports: Hypertension Respiratory History: Reports: Asthma, Sleep Apnea Other Respiratory History: asthma as a child, uses CPAP Gastrointestinal History: Reports: GERD Genitourinary History: Reports: Renal Calculus [employer] History: Reports: 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 History: Reports: Fracture Neurological History: Reports: Migraines Psychiatric History: Reports: Anxiety, Depression Endocrine/Metabolic History: Reports: Diabetes, Type II, Obesity/BMI 30+ Hematologic History: Reports: None Immunologic History: Reports: None Oncologic (Cancer) History: Reports: None - Infectious Disease History Infectious Disease History: Reports: None - Past Surgical History Head Surgeries/Procedures: Reports: None GI Surgical History: Reports: Cholecystectomy Female Surgical History: Reports: Section, Hysterectomy, Lithotripsy /ESWL 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 Surgical History: Reports: Other (See Below) Other 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 Surgeries/Procedures:: surgical tx for broken left wrist ( external fixator) Oncologic Surgical History: Reports: None Social & Family History - Family History Family Medical History: Noncontributory - Caffeine Use Caffeine Use: Reports: Coffee Caffeine Use Comment: 2 cups daily ED ROS GENERAL - Review of Systems Review Of Systems: ROS reveals no pertinent complaints other than HPI. ED EXAM, GI/ABD - Physical Exam Exam: See Below (See dictation) Course - Vital Signs Last Recorded V/S: Last Vital Signs Temp 97.2 F 10/12/17 12:00 Pulse 87 10/12/17 12:00 Resp 18 10/12/17 12:00 BP 107/56 L 10/12/17 12:00 Pulse Ox 98 10/12/17 12:00 - Orders/Labs/Meds Orders: Active Orders 24 hr Category Date Time Status Admission Status [Patient Status] [ADT] Stat ADT 10/11/17 19:48 Active Vaccines to be Administered [RC] PER UNIT ROUTINE Care 10/11/17 18:47 Inactive Abdomen Pelvis w Cont [CT] Stat Exams 10/11/17 17:58 Taken Medication Orders Albuterol/Ipratropium (Duoneb 3.0-0.5 Mg/3 Ml) 3 ml NEB Q4HRRT PRN PRN Reason: Shortness Of Breath/wheezing Cholecalciferol (Vitamin D3) 1,000 units PO DAILY BRISA Last Admin: 10/12/17 08:17 Dose: 1,000 units Divalproex Sodium (Depakote) 500 mg PO BEDTIME [facility] Enoxaparin Sodium (Lovenox) 40 mg SUBCUT Q24H BRISA Last Admin: 10/11/17 22:47 Dose: 40 mg Gabapentin (Neurontin) 600 mg PO BEDTIME BRISA Hydromorphone HCl (Dilaudid) 1 mg IVPUSH Q3H PRN PRN Reason: Pain Last Admin: 10/12/17 08:18 Dose: 1 mg Admin: 10/12/17 00:26 Dose: 1 mg Hydroxyzine HCl (Atarax) 50 mg PO BEDTIME [facility] Sodium Chloride (Normal Saline) 1,000 mls @ 200 mls/hr IV ASDIRECTED BRISA Last Admin: 10/12/17 09:28 Dose: 200 mls/hr Infusion: 10/12/17 09:12 Dose: 200 mls/hr Admin: 10/12/17 04:12 Dose: 200 mls/hr Infusion: 10/12/17 04:12 Dose: 200 mls/hr Admin: 10/11/17 23:38 Dose: 200 mls/hr Insulin Aspart (Novolog) 0 unit SUBCUT Q6H [facility]; Protocol Last Admin: 10/12/17 11:28 Dose: 6 units Admin: 10/12/17 04:10 Dose: 6 units Admin: 10/11/17 22:52 Dose: 6 units Insulin Glargine (Lantus Solostar) 10 units SUBCUT DAILY [facility] Last Admin: 10/12/17 10:28 Dose: 10 units Lisinopril (Prinivil) 10 mg PO DAILY [facility] Magnesium Oxide (Magnesium Oxide) 400 mg PO DAILY [facility] Last Admin: 10/12/17 08:17 Dose: 400 mg Ondansetron HCl (Zofran) 4 mg IVPUSH Q4H PRN PRN Reason: Nausea Pantoprazole Sodium (Protonix Iv) 40 mg IV Q12H [facility] Sodium Chloride (Saline Flush) 10 ml FLUSH ASDIRECTED PRN PRN Reason: Keep Vein Open Sodium Chloride (Saline Flush) 2.5 ml FLUSH ASDIRECTED PRN PRN Reason: Keep Vein Open Venlafaxine HCl (Effexor Xr) 225 mg PO BEDTIME [facility] Labs: Laboratory Tests 10/11/17 10/11/17 10/11/17 Range/Units 17:43 17:43 17:43 WBC 18.75 H (4.0-11.0) K/uL RBC 4.97 (4.30-5.90) M/uL Hgb 14.3 (12.0-16.0) g/dL Hct 41.7 (36.0-46.0) % MCV 83.9 (80.0-98.0) fL MCH 28.8 (27.0-32.0) pg MCHC 34.3 (31.0-37.0) g/dL RDW Std Deviation 40.8 (28.0-62.0) fl RDW Coeff of Felix 14 (11.0-15.0) % Plt Count 310 (150-400) K/uL MPV 9.60 (7.40-12.00) fL Neut % (Auto) 81.4 H (48.0-80.0) % Lymph % (Auto) 9.7 L (16.0-40.0) % [place] % (Auto) 8.3 (0.0-15.0) % Eos % (Auto) 0.4 (0.0-7.0) % Baso % (Auto) 0.2 (0.0-1.5) % Neut # (Auto) 15.3 H (1.4-5.7) K/uL Lymph # (Auto) 1.8 (0.6-2.4) K/uL [place] # (Auto) 1.6 H (0.0-0.8) K/uL Eos # (Auto) 0.1 (0.0-0.7) K/uL Baso # (Auto) 0.0 (0.0-0.1) K/uL Nucleated RBC % 0.0 /100WBC Nucleated RBCs # 0 K/uL Sodium 124 L (136-145) mmol/L Potassium 3.9 (3.5-5.1) mmol/L Chloride 86 L (98-107) mmol/L Carbon Dioxide 22.4 (21.0-32.0) mmol/L BUN 8 (7.0-18.0) mg/dL Creatinine 0.9 (0.6-1.0) mg/dL Est Cr Clr Drug Dosing 63.33 mL/min Estimated GFR (MDRD) > 60.0 ml/min Glucose 384 H (74-106) mg/dL Calcium 9.5 (8.5-10.1) mg/dL Total Bilirubin 0.7 (0.2-1.0) mg/dL AST 30 (15-37) IU/L ALT 42 (14-63) IU/L Alkaline Phosphatase 93 (46-116) U/L Total Protein 8.6 H (6.4-8.2) g/dL Albumin 3.7 (3.4-5.0) g/dL Globulin 4.9 H (2.0-3.5) g/dL Albumin/Globulin Ratio 0.8 L (1.3-2.8) Amylase 19 L (25-115) U/L Lipase 527 H (73-393) U/L Urine Color Urine Appearance Urine pH (5.0-8.0) Ur Specific [place] (1.001-1.035) Urine Protein (NEGATIVE) mg/dL Urine Glucose (UA) (NEGATIVE) mg/dL Urine Ketones (NEGATIVE) mg/dL Urine Occult Blood (NEGATIVE) Urine Nitrite (NEGATIVE) Urine Bilirubin (NEGATIVE) Urine Urobilinogen (<2.0) EU/dL Ur Leukocyte Esterase (NEGATIVE) Urine RBC (0-2/HPF) Urine WBC (0-5/HPF) Ur Epithelial Cells (NONE-FEW) Urine Bacteria (NEGATIVE) H. pylori IgG Antibody POSITIVE H (NEG) 10/11/17 Range/Units 19:30 WBC (4.0-11.0) K/uL RBC (4.30-5.90) M/uL Hgb (12.0-16.0) g/dL Hct (36.0-46.0) % MCV (80.0-98.0) fL MCH (27.0-32.0) pg MCHC (31.0-37.0) g/dL RDW Std Deviation (28.0-62.0) fl RDW Coeff of Felix (11.0-15.0) % Plt Count (150-400) K/uL MPV (7.40-12.00) fL Neut % (Auto) (48.0-80.0) % Lymph % (Auto) (16.0-40.0) % [place] % (Auto) (0.0-15.0) % Eos % (Auto) (0.0-7.0) % Baso % (Auto) (0.0-1.5) % Neut # (Auto) (1.4-5.7) K/uL Lymph # (Auto) (0.6-2.4) K/uL [place] # (Auto) (0.0-0.8) K/uL Eos # (Auto) (0.0-0.7) K/uL Baso # (Auto) (0.0-0.1) K/uL Nucleated RBC % /100WBC Nucleated RBCs # K/uL Sodium (136-145) mmol/L Potassium (3.5-5.1) mmol/L Chloride (98-107) mmol/L Carbon Dioxide (21.0-32.0) mmol/L BUN (7.0-18.0) mg/dL Creatinine (0.6-1.0) mg/dL Est Cr Clr Drug Dosing mL/min Estimated GFR (MDRD) ml/min Glucose (74-106) mg/dL Calcium (8.5-10.1) mg/dL Total Bilirubin (0.2-1.0) mg/dL AST (15-37) IU/L ALT (14-63) IU/L Alkaline Phosphatase (46-116) U/L Total Protein (6.4-8.2) g/dL Albumin (3.4-5.0) g/dL Globulin (2.0-3.5) g/dL Albumin/Globulin Ratio (1.3-2.8) Amylase (25-115) U/L Lipase (73-393) U/L Urine Color YELLOW Urine Appearance HAZY Urine pH 6.0 (5.0-8.0) Ur Specific [place] <= 1.005 (1.001-1.035) Urine Protein NEGATIVE (NEGATIVE) mg/dL Urine Glucose (UA) >=1000 (NEGATIVE) mg/dL Urine Ketones 40 H (NEGATIVE) mg/dL Urine Occult Blood LARGE H (NEGATIVE) Urine Nitrite NEGATIVE (NEGATIVE) Urine Bilirubin NEGATIVE (NEGATIVE) Urine Urobilinogen 0.2 (<2.0) EU/dL Ur Leukocyte Esterase NEGATIVE (NEGATIVE) Urine RBC 8-10 (0-2/HPF) Urine WBC 0-2 (0-5/HPF) Ur Epithelial Cells FEW (NONE-FEW) Urine Bacteria FEW (NEGATIVE) H. pylori IgG Antibody (NEG) Meds: Medications Generic Name Dose Route Start Last Admin Trade Name Freq PRN Reason Stop Dose Admin Albuterol/Ipratropium 3 ml 10/11/17 21:54 Duoneb 3.0-0.5 Mg/3 Ml NEB Q4HRRT PRN Shortness Of Breath/wheezing Cholecalciferol 1,000 units 10/12/17 09:00 10/12/17 08:17 Vitamin D3 PO 1,000 units DAILY BRISA Administration Divalproex Sodium 500 mg 10/12/17 21:00 Depakote PO BEDTIME BRISA Enoxaparin Sodium 40 mg 10/11/17 22:00 10/11/17 22:47 Lovenox SUBCUT 40 mg Q24H BRISA Administration Gabapentin 600 mg 10/12/17 21:00 Neurontin PO BEDTIME BRISA Hydromorphone HCl 1 mg 10/12/17 00:19 10/12/17 08:18 Dilaudid IVPUSH 1 mg Q3H PRN Administration Pain Hydroxyzine HCl 50 mg 10/12/17 21:00 Atarax PO BEDTIME BRISA Sodium Chloride 1,000 mls @ 200 mls/hr 10/11/17 22:15 10/12/17 09:28 Normal Saline IV 200 mls/hr ASDIRECTED BRISA Administration Insulin Aspart 0 unit 10/11/17 22:15 10/12/17 11:28 Novolog SUBCUT 6 units Q6H BRISA Administration Protocol Insulin Glargine 10 units 10/12/17 09:30 10/12/17 10:28 Lantus Solostar SUBCUT 10 units DAILY BRISA Administration Lisinopril 10 mg 10/12/17 21:00 Prinivil PO DAILY BRISA Magnesium Oxide 400 mg 10/12/17 09:00 10/12/17 08:17 Magnesium Oxide PO 400 mg DAILY BRISA Administration Ondansetron HCl 4 mg 10/11/17 21:54 Zofran IVPUSH Q4H PRN Nausea Pantoprazole Sodium 40 mg 10/12/17 21:00 Protonix Iv IV Q12H BRISA Sodium Chloride 10 ml 10/11/17 21:54 Saline Flush FLUSH ASDIRECTED PRN Keep Vein Open Sodium Chloride 2.5 ml 10/11/17 21:54 Saline Flush FLUSH ASDIRECTED PRN Keep Vein Open Venlafaxine HCl 225 mg 10/12/17 21:00 Effexor Xr PO BEDTIME BRISA Discontinued Medications Generic Name Dose Route Start Last Admin Trade Name Freq PRN Reason Stop Dose Admin Al Hydroxide/Mg Hydroxide 15 0 ml 10/11/17 17:31 10/11/17 18:26 ml/ Metoclopramide HCl 5 mg/ PO 10/11/17 17:32 25 each Lidocaine HCl 5 ml ONETIME ONE Administration Diphtheria/Tetanus/Acell Pertussis 0.5 ml 10/11/17 18:47 Adacel IM 10/11/17 18:48 .ONCE ONE Erythromycin 1 gm 10/11/17 18:47 10/12/17 01:25 Erythromycin 0.5% Ophth Oint EYEBOTH 10/11/17 18:48 Not Given ONETIME ONE Famotidine 20 mg 10/11/17 19:17 10/11/17 19:49 Pepcid IVPUSH 10/11/17 19:18 20 mg ONETIME ONE Administration Sodium Chloride 1,000 mls @ 999 mls/hr 10/11/17 17:29 10/11/17 18:30 Normal Saline IV 10/11/17 18:29 999 mls/hr STAT ONE Administration Sodium Chloride 1,000 mls @ 150 mls/hr 10/11/17 19:30 10/11/17 19:53 Normal Saline IV 10/12/17 02:09 999 mls/hr STAT ONE Administration Pantoprazole Sodium 80 mg/ 100 mls @ 10 mls/hr 10/11/17 20:00 10/12/17 05:28 Sodium Chloride IV 10 mls/hr .Continuous BRISA Administration Lactated Ringer's 1,000 mls @ 200 mls/hr 10/11/17 22:00 Ringers, Lactated IV ASDIRECTED BRISA Iopamidol 100 ml 10/11/17 18:51 10/11/17 18:52 Isovue Multipack-370 (76%) IVPUSH 10/11/17 18:52 100 ml ONETIME STA Administration Lisinopril 10 mg 10/12/17 09:00 Prinivil PO DAILY BRISA Morphine Sulfate 4 mg 10/11/17 19:17 10/11/17 19:58 Morphine IVPUSH 10/11/17 19:18 Not Given ONETIME ONE Morphine Sulfate 4 mg 10/11/17 19:55 10/11/17 20:00 Morphine IVPUSH 10/11/17 19:56 4 mg ONETIME ONE Administration Ondansetron HCl 4 mg 10/11/17 17:31 10/11/17 18:28 Zofran IVPUSH 10/11/17 17:32 4 mg ONETIME ONE Administration Venlafaxine HCl 225 mg 10/11/17 23:00 10/11/17 22:46 Effexor Xr PO 10/11/17 23:01 225 mg ONETIME ONE Administration Departure - Departure Time of Disposition: 19:52 Disposition: Refer to Observation Clinical Impression: Helicobacter pylori (H. pylori) infection, Hyponatremia Pancreatitis Qualifiers: Chronicity: acute Pancreatitis type: unspecified pancreatitis type Acute pancreatitis complication: unspecified Qualified Code(s): K85.90 - Acute pancreatitis without necrosis or infection, unspecified - Discharge Information - My Orders Last 24 Hours: My Active Orders 10/11/17 17:58 Abdomen Pelvis w Cont [CT] Stat 10/11/17 18:47 Vaccines to be Administered [RC] PER UNIT ROUTINE 10/11/17 19:48 Admission Status [Patient Status] [ADT] Stat - Assessment/Plan Last 24 Hours: My Active Orders 10/11/17 17:58 Abdomen Pelvis w Cont [CT] Stat 10/11/17 18:47 Vaccines to be Administered [RC] PER UNIT ROUTINE 10/11/17 19:48 Admission Status [Patient Status] [ADT] Stat
[2017-10-11 18:15] LABS: CHLORIDE,CL 86 mmol/L (98-107); SODIUM,NA 124 mmol/L (136-145)
[2017-10-11] MEDS ORDERED: Diphtheria,Pertussis(Acell),Tetanus Vaccine 0.5 ML Syringe IM ONE (18:47)
[2017-10-11] MEDS ORDERED: Erythromycin Base 0.5% Ophth Oint 1 GM Tube EYEBOTH ONE (18:47)
[2017-10-11] MEDS ORDERED: Iopamidol 755 MG/ML 500 ML Multipack Bottle IVPUSH STA (18:51)
[2017-10-11] MEDS ORDERED: Famotidine 20 MG/2 ML SDV IVPUSH ONE (19:17)
[2017-10-11] MEDS ORDERED: Morphine 4 MG/ML Syringe IVPUSH ONE (19:17)
[2017-10-11] MEDS ORDERED: Morphine 2 MG/ML Syringe IVPUSH ONE (19:55)
[2017-10-11] MEDS: Pantoprazole 80 MG in Sodium Chloride 0.9% 100 ML IV SCH (20:35)
[2017-10-11] MEDS ORDERED: Sodium Chloride 0.9% 2.5 ML Syringe FLUSH PRN (21:54)
[2017-10-11] MEDS ORDERED: Sodium Chloride 0.9% 10 ML Syringe FLUSH PRN (21:54)
[2017-10-11] MEDS ORDERED: Albuterol/Ipratropium 3.0-0.5 MG/3 ML Neb Soln NEB PRN (21:54)
[2017-10-11] MEDS ORDERED: Lactated Ringers 1,000 ML IV SCH (22:00)
[2017-10-11] MEDS: Enoxaparin 40 MG/0.4 ML Syringe SUBCUT SCH (22:47)
[2017-10-11] MEDS: Insulin Aspart 100 Units/ML 3 ML Pen SUBCUT SCH (22:52)
[2017-10-11] MEDS ORDERED: Venlafaxine 75 MG Cap.ER PO ONE (23:00)
[2017-10-11] MEDS: Sodium Chloride 0.9% 1,000 ML IV SCH (23:38)
[2017-10-12] MEDS: HYDROmorphone 1 MG/ML Syringe IVPUSH PRN ×4 (00:26→20:45)
[2017-10-12] MEDS: Insulin Aspart 100 Units/ML 3 ML Pen SUBCUT SCH ×4 (04:10→22:26)
[2017-10-12] MEDS: Sodium Chloride 0.9% 1,000 ML IV SCH ×4 (04:12→19:34)
[2017-10-12] MEDS: Pantoprazole 80 MG in Sodium Chloride 0.9% 100 ML IV SCH (05:28)
[2017-10-12 06:38] LABS: CHLORIDE,CL 98 mmol/L (98-107); SODIUM,NA 135 mmol/L (136-145)
[2017-10-12] MEDS: Cholecalciferol (Vitamin D3) 1,000 Unit Tab PO SCH (08:17)
[2017-10-12] MEDS: Magnesium Oxide 400 MG Tab PO SCH (08:17)
[2017-10-12] MEDS ORDERED: Lisinopril 10 MG Tab PO SCH (09:00)
--- NOTE | 2017-10-12 10:21 | PCM.HP ---
H&P History of Present Illness - General Date of Service: 10/12/17 Admit Problem/Dx: Admission Diagnosis/Problem Admission Diagnosis/Problem Pancreatitis Abdominal Pain Score (Numeric/FACES): 7 - Related Data Allergies/Adverse Reactions: Allergies Allergy/AdvReac Type Severity Reaction Status Date / Time banana Allergy Itching Verified 10/11/17 17:31 latex Allergy "due to Verified 10/11/17 17:31 banana allergy" cats Allergy Mild Sneezing Uncoded 10/11/17 17:31 cloth bandaids Allergy Mild Rash Uncoded 10/11/17 17:31 fruit Allergy Mild scratchy Uncoded 10/11/17 17:31 throat seasonal allergies Allergy Mild Sneezing Uncoded 10/11/17 17:31 Home Medications: Home Meds Venlafaxine [Effexor XR] 150 mg PO BEDTIME 12/30/14 [History] Lisinopril 1 tab PO DAILY 06/11/16 [History] Magnesium 250 mg PO DAILY 03/25/17 [History] Pantoprazole [ProTONIX] 40 mg PO ONETIME 03/25/17 [History] Cholecalciferol (Vitamin D3) [Vitamin D3] 1 tab PO DAILY 04/07/17 [History] Cyanocobalamin (Vitamin B-12) [Vitamin B-12] 50 mcg PO DAILY 04/07/17 [History] Divalproex Sodium 500 mg PO BEDTIME 04/07/17 [History] Gabapentin [Neurontin] 2 tab PO BEDTIME 04/07/17 [History] L.acidoph,Paracasei, B.lactis [Probiotic] 1 tab PO BEDTIME 04/07/17 [History] Loratadine [Claritin] 10 mg PO DAILY 04/07/17 [History] PNV95/Ferrous Fumarate/FA [ Vitamin Tablet] 1 tab PO BEDTIME 04/07/17 [ History] Saxagliptin [Onglyza] 5 mg PO DAILY 04/07/17 [History] Sucralfate 1 gm PO BID 04/07/17 [History] Allopurinol [Zyloprim] 0 mg PO DAILY 10/11/17 [History] Cyanocobalamin (Vitamin B-12) [Vitamin B-12] 500 mcg PO DAILY 10/11/17 [History] Cyanocobalamin (Vitamin B-12) [Vitamin B-12] 500 mcg PO DAILY 10/11/17 [History] Hydrochlorothiazide [Microzide] 0 mg PO DAILY 10/11/17 [History] Potassium Citrate Monohydrate [Potassium Citrate] 0 mg PO DAILY 10/11/17 [ History] Tamsulosin [Tamsulosin 24 Hr] 0.4 mg PO BEDTIME 10/11/17 [History] Venlafaxine [Effexor XR] 75 mg PO BEDTIME 10/11/17 [History] hydrOXYzine HCl [Atarax] 50 mg PO BEDTIME 10/11/17 [History] Past Medical History HEENT History: Reports: Impaired Vision, Other (See Below) Other HEENT History: wears glasses Cardiovascular History: Reports: Hypertension Respiratory History: Reports: Asthma, Sleep Apnea Other Respiratory History: asthma as a child, uses CPAP Gastrointestinal History: Reports: GERD Genitourinary History: Reports: Renal Calculus [employer] History: Reports: 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 History: Reports: Fracture Neurological History: Reports: Migraines Psychiatric History: Reports: Anxiety, Depression Endocrine/Metabolic History: Reports: Diabetes, Type II, Obesity/BMI 30+ Hematologic History: Reports: None Immunologic History: Reports: None Oncologic (Cancer) History: Reports: None - Infectious Disease History Infectious Disease History: Reports: None - Past Surgical History Head Surgeries/Procedures: Reports: None GI Surgical History: Reports: Cholecystectomy Female Surgical History: Reports: Section, Hysterectomy, Lithotripsy /ESWL 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 Surgical History: Reports: Other (See Below) Other 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 Surgeries/Procedures:: surgical tx for broken left wrist ( external fixator) Oncologic Surgical History: Reports: None Social & Family History - Family History Family Medical History: Noncontributory - Tobacco Use Smoking Status *Q: Current Every Day Smoker Years of Tobacco use: 2 Packs/Tins Daily: 0.5 Second Hand Smoke Exposure: No - Caffeine Use Caffeine Use: Reports: Coffee, Energy Drinks Caffeine Use Comment: 2 cups daily - Recreational Drug Use Recreational Drug Use: No Exam - Vital Signs Vital Signs: Last Vital Signs Temp 98.8 F 10/12/17 03:52 Pulse 96 10/12/17 08:00 Resp 18 10/12/17 08:00 BP 139/81 10/12/17 08:00 Pulse Ox 96 10/12/17 08:00 Weight: 221 lb 6.4 oz - Patient Data Lab Results Last 24 hrs: Laboratory Results - last 24 hr 10/11/17 10/11/17 10/11/17 Range/Units 17:43 17:43 17:43 WBC 18.75 H (4.0-11.0) K/uL RBC 4.97 (4.30-5.90) M/uL Hgb 14.3 (12.0-16.0) g/dL Hct 41.7 (36.0-46.0) % MCV 83.9 (80.0-98.0) fL MCH 28.8 (27.0-32.0) pg MCHC 34.3 (31.0-37.0) g/dL RDW Std Deviation 40.8 (28.0-62.0) fl RDW Coeff of Felix 14 (11.0-15.0) % Plt Count 310 (150-400) K/uL MPV 9.60 (7.40-12.00) fL Neut % (Auto) 81.4 H (48.0-80.0) % Lymph % (Auto) 9.7 L (16.0-40.0) % [place] % (Auto) 8.3 (0.0-15.0) % Eos % (Auto) 0.4 (0.0-7.0) % Baso % (Auto) 0.2 (0.0-1.5) % Neut # (Auto) 15.3 H (1.4-5.7) K/uL Lymph # (Auto) 1.8 (0.6-2.4) K/uL [place]ers # (Auto) 1.6 H (0.0-0.8) K/uL Eos # (Auto) 0.1 (0.0-0.7) K/uL Baso # (Auto) 0.0 (0.0-0.1) K/uL Nucleated RBC % 0.0 /100WBC Nucleated RBCs # 0 K/uL Sodium 124 L (136-145) mmol/L Potassium 3.9 (3.5-5.1) mmol/L Chloride 86 L (98-107) mmol/L Carbon Dioxide 22.4 (21.0-32.0) mmol/L BUN 8 (7.0-18.0) mg/dL Creatinine 0.9 (0.6-1.0) mg/dL Est Cr Clr Drug Dosing 63.33 mL/min Estimated GFR (MDRD) > 60.0 ml/min Glucose 384 H (74-106) mg/dL POC Glucose (60-110) mg/dL Hemoglobin A1c (4.5-6.2) % Calcium 9.5 (8.5-10.1) mg/dL Magnesium (1.8-2.4) mg/dL Total Bilirubin 0.7 (0.2-1.0) mg/dL AST 30 (15-37) IU/L ALT 42 (14-63) IU/L Alkaline Phosphatase 93 (46-116) U/L Total Protein 8.6 H (6.4-8.2) g/dL Albumin 3.7 (3.4-5.0) g/dL Globulin 4.9 H (2.0-3.5) g/dL Albumin/Globulin Ratio 0.8 L (1.3-2.8) Amylase 19 L (25-115) U/L Lipase 527 H (73-393) U/L Urine Color Urine Appearance Urine pH (5.0-8.0) Ur Specific Campo (1.001-1.035) Urine Protein (NEGATIVE) mg/dL Urine Glucose (UA) (NEGATIVE) mg/dL Urine Ketones (NEGATIVE) mg/dL Urine Occult Blood (NEGATIVE) Urine Nitrite (NEGATIVE) Urine Bilirubin (NEGATIVE) Urine Urobilinogen (<2.0) EU/dL Ur Leukocyte Esterase (NEGATIVE) Urine RBC (0-2/HPF) Urine WBC (0-5/HPF) Ur Epithelial Cells (NONE-FEW) Urine Bacteria (NEGATIVE) H. pylori IgG Antibody POSITIVE H (NEG) 10/11/17 10/11/17 10/12/17 Range/Units 19:30 22:44 04:05 WBC (4.0-11.0) K/uL RBC (4.30-5.90) M/uL Hgb (12.0-16.0) g/dL Hct (36.0-46.0) % MCV (80.0-98.0) fL MCH (27.0-32.0) pg MCHC (31.0-37.0) g/dL RDW Std Deviation (28.0-62.0) fl RDW Coeff of Felix (11.0-15.0) % Plt Count (150-400) K/uL MPV (7.40-12.00) fL Neut % (Auto) (48.0-80.0) % Lymph % (Auto) (16.0-40.0) % Prowers % (Auto) (0.0-15.0) % Eos % (Auto) (0.0-7.0) % Baso % (Auto) (0.0-1.5) % Neut # (Auto) (1.4-5.7) K/uL Lymph # (Auto) (0.6-2.4) K/uL Prowers # (Auto) (0.0-0.8) K/uL Eos # (Auto) (0.0-0.7) K/uL Baso # (Auto) (0.0-0.1) K/uL Nucleated RBC % /100WBC Nucleated RBCs # K/uL Sodium (136-145) mmol/L Potassium (3.5-5.1) mmol/L Chloride (98-107) mmol/L Carbon Dioxide (21.0-32.0) mmol/L BUN (7.0-18.0) mg/dL Creatinine (0.6-1.0) mg/dL Est Cr Clr Drug Dosing mL/min Estimated GFR (MDRD) ml/min Glucose (74-106) mg/dL POC Glucose 277 H 273 H (60-110) mg/dL Hemoglobin A1c (4.5-6.2) % Calcium (8.5-10.1) mg/dL Magnesium (1.8-2.4) mg/dL Total Bilirubin (0.2-1.0) mg/dL AST (15-37) IU/L ALT (14-63) IU/L Alkaline Phosphatase (46-116) U/L Total Protein (6.4-8.2) g/dL Albumin (3.4-5.0) g/dL Globulin (2.0-3.5) g/dL Albumin/Globulin Ratio (1.3-2.8) Amylase (25-115) U/L Lipase (73-393) U/L Urine Color YELLOW Urine Appearance HAZY Urine pH 6.0 (5.0-8.0) Ur Specific Campo <= 1.005 (1.001-1.035) Urine Protein NEGATIVE (NEGATIVE) mg/dL Urine Glucose (UA) >=1000 (NEGATIVE) mg/dL Urine Ketones 40 H (NEGATIVE) mg/dL Urine Occult Blood LARGE H (NEGATIVE) Urine Nitrite NEGATIVE (NEGATIVE) Urine Bilirubin NEGATIVE (NEGATIVE) Urine Urobilinogen 0.2 (<2.0) EU/dL Ur Leukocyte Esterase NEGATIVE (NEGATIVE) Urine RBC 8-10 (0-2/HPF) Urine WBC 0-2 (0-5/HPF) Ur Epithelial Cells FEW (NONE-FEW) Urine Bacteria FEW (NEGATIVE) H. pylori IgG Antibody (NEG) 10/12/17 10/12/17 10/12/17 Range/Units 06:01 06:01 06:01 WBC 12.83 H (4.0-11.0) K/uL RBC 4.31 (4.30-5.90) M/uL Hgb 12.1 (12.0-16.0) g/dL Hct 37.0 (36.0-46.0) % MCV 85.8 (80.0-98.0) fL MCH 28.1 (27.0-32.0) pg MCHC 32.7 (31.0-37.0) g/dL RDW Std Deviation 42.4 (28.0-62.0) fl RDW Coeff of Felix 14 (11.0-15.0) % Plt Count 235 (150-400) K/uL MPV 9.50 (7.40-12.00) fL Neut % (Auto) 73.3 (48.0-80.0) % Lymph % (Auto) 16.1 (16.0-40.0) % Prowers % (Auto) 9.3 (0.0-15.0) % Eos % (Auto) 1.1 (0.0-7.0) % Baso % (Auto) 0.2 (0.0-1.5) % Neut # (Auto) 9.4 H (1.4-5.7) K/uL Lymph # (Auto) 2.1 (0.6-2.4) K/uL [place] # (Auto) 1.2 H (0.0-0.8) K/uL Eos # (Auto) 0.1 (0.0-0.7) K/uL Baso # (Auto) 0.0 (0.0-0.1) K/uL Nucleated RBC % 0.0 /100WBC Nucleated RBCs # 0 K/uL Sodium 135 L (136-145) mmol/L Potassium 3.9 (3.5-5.1) mmol/L Chloride 98 (98-107) mmol/L Carbon Dioxide 30.0 (21.0-32.0) mmol/L BUN 7 (7.0-18.0) mg/dL Creatinine 0.9 (0.6-1.0) mg/dL Est Cr Clr Drug Dosing 63.33 mL/min Estimated GFR (MDRD) > 60.0 ml/min Glucose 258 H (74-106) mg/dL POC Glucose (60-110) mg/dL Hemoglobin A1c 11.5 H (4.5-6.2) % Calcium 8.4 L (8.5-10.1) mg/dL Magnesium 2.0 (1.8-2.4) mg/dL Total Bilirubin 0.5 (0.2-1.0) mg/dL AST 20 (15-37) IU/L ALT 32 (14-63) IU/L Alkaline Phosphatase 73 (46-116) U/L Total Protein 7.3 (6.4-8.2) g/dL Albumin 3.0 L (3.4-5.0) g/dL Globulin 4.3 H (2.0-3.5) g/dL Albumin/Globulin Ratio 0.7 L (1.3-2.8) Amylase (25-115) U/L Lipase (73-393) U/L Urine Color Urine Appearance Urine pH (5.0-8.0) Ur Specific Campo (1.001-1.035) Urine Protein (NEGATIVE) mg/dL Urine Glucose (UA) (NEGATIVE) mg/dL Urine Ketones (NEGATIVE) mg/dL Urine Occult Blood (NEGATIVE) Urine Nitrite (NEGATIVE) Urine Bilirubin (NEGATIVE) Urine Urobilinogen (<2.0) EU/dL Ur Leukocyte Esterase (NEGATIVE) Urine RBC (0-2/HPF) Urine WBC (0-5/HPF) Ur Epithelial Cells (NONE-FEW) Urine Bacteria (NEGATIVE) H. pylori IgG Antibody (NEG) Result Diagrams: 10/12/17 06:01 10/12/17 06:01 Orders Last 24hrs: Active Orders 24 hr Category Date Time Status Admission Status [Patient Status] [ADT] Stat ADT 10/11/17 19:48 Active Oxygen Therapy [RC] PRN Care 10/11/17 21:54 Active Pulse Oximetry [RC] PRN Care 10/11/17 21:54 Active RT Aerosol Therapy [RC] ASDIRECTED Care 10/11/17 21:57 Active Up ad Anayeli [RC] ASDIRECTED Care 10/11/17 21:54 Active VTE/DVT Education [RC] PER UNIT ROUTINE Care 10/11/17 21:54 Active Vaccines to be Administered [RC] PER UNIT ROUTINE Care 10/11/17 18:47 Inactive Vital Signs [RC] Q4H Care 10/11/17 21:54 Active Nothing per Oral Now Diet [DIET] Diet 10/11/17 Dinner Active Abdomen Pelvis w Cont [CT] Stat Exams 10/11/17 17:58 Taken CBC WITH AUTO DIFF [HEME] AM Lab 10/13/17 05:11 Ordered CBC WITH AUTO DIFF [HEME] AM Lab 10/14/17 05:11 Ordered CBC WITH AUTO DIFF [HEME] AM Lab 10/15/17 05:11 Ordered CBC WITH AUTO DIFF [HEME] AM Lab 10/16/17 05:11 Ordered COMPREHENSIVE METABOLIC PN,CMP [CHEM] AM Lab 10/13/17 05:11 Ordered COMPREHENSIVE METABOLIC PN,CMP [CHEM] AM Lab 10/14/17 05:11 Ordered COMPREHENSIVE METABOLIC PN,CMP [CHEM] AM Lab 10/15/17 05:11 Ordered LIPASE [CHEM] Routine Lab 10/12/17 06:01 Received LIPID PANEL [CHEM] Routine Lab 10/12/17 06:01 Received MAGNESIUM [CHEM] AM Lab 10/13/17 05:11 Ordered MAGNESIUM [CHEM] AM Lab 10/14/17 05:11 Ordered MAGNESIUM [CHEM] AM Lab 10/15/17 05:11 Ordered MAGNESIUM [CHEM] AM Lab 10/16/17 05:11 Ordered Albuterol/Ipratropium [DuoNeb 3.0-0.5 MG/3 ML] Med 10/11/17 21:54 Active 3 ml NEB Q4HRRT PRN Cholecalciferol (Vitamin D3) [Vitamin D3] Med 10/12/17 09:00 Active 1,000 units PO DAILY Divalproex Sodium [Depakote] Med 10/12/17 21:00 Active 500 mg PO BEDTIME Enoxaparin [Lovenox] Med 10/11/17 22:00 Active 40 mg SUBCUT Q24H Gabapentin [Neurontin] Med 10/12/17 21:00 Active 600 mg PO BEDTIME HYDROmorphone [Dilaudid] Med 10/12/17 00:19 Active 1 mg IVPUSH Q3H PRN Insulin Aspart [NovoLOG] Med 10/11/17 22:15 Active See Protocol SUBCUT Q6H Insulin Glarg,Human.Rec.Analog [LantUS Solostar] Med 10/12/17 09:30 Active 10 units SUBCUT DAILY Lisinopril [Prinivil] Med 10/12/17 21:00 Active 10 mg PO DAILY Magnesium Oxide Med 10/12/17 09:00 Active 400 mg PO DAILY Ondansetron [Zofran] Med 10/11/17 21:54 Active 4 mg IVPUSH Q4H PRN Pantoprazole [ProTONIX IV] Med 10/12/17 21:00 Active 40 mg IV Q12H Sodium Chloride 0.9% [Normal Saline] 1,000 ml Med 10/11/17 22:15 Active IV ASDIRECTED Sodium Chloride 0.9% [Saline Flush] Med 10/11/17 21:54 Active 10 ml FLUSH ASDIRECTED PRN Sodium Chloride 0.9% [Saline Flush] Med 10/11/17 21:54 Active 2.5 ml FLUSH ASDIRECTED PRN Venlafaxine [Effexor XR] Med 10/12/17 21:00 Active 225 mg PO BEDTIME hydrOXYzine HCl [Atarax] Med 10/12/17 21:00 Active 50 mg PO BEDTIME Peripheral IV Insertion Adult [OM.PC] Routine Oth 10/11/17 21:54 Ordered Saline Lock Insert [OM.PC] Routine Oth 10/11/17 21:54 Ordered Resuscitation Status Routine Resus Stat 10/11/17 21:54 Ordered Medication Orders Albuterol/Ipratropium (Duoneb 3.0-0.5 Mg/3 Ml) 3 ml NEB Q4HRRT PRN PRN Reason: Shortness Of Breath/wheezing Cholecalciferol (Vitamin D3) 1,000 units PO DAILY BRISA Last Admin: 10/12/17 08:17 Dose: 1,000 units Divalproex Sodium (Depakote) 500 mg PO BEDTIME [facility] Enoxaparin Sodium (Lovenox) 40 mg SUBCUT Q24H [facility] Last Admin: 10/11/17 22:47 Dose: 40 mg Gabapentin (Neurontin) 600 mg PO BEDTIME BRISA Hydromorphone HCl (Dilaudid) 1 mg IVPUSH Q3H PRN PRN Reason: Pain Last Admin: 10/12/17 08:18 Dose: 1 mg Admin: 10/12/17 00:26 Dose: 1 mg Hydroxyzine HCl (Atarax) 50 mg PO BEDTIME [facility] Sodium Chloride (Normal Saline) 1,000 mls @ 200 mls/hr IV ASDIRECTED [facility] Last Admin: 10/12/17 09:28 Dose: 200 mls/hr Infusion: 10/12/17 09:12 Dose: 200 mls/hr Admin: 10/12/17 04:12 Dose: 200 mls/hr Infusion: 10/12/17 04:12 Dose: 200 mls/hr Admin: 10/11/17 23:38 Dose: 200 mls/hr Insulin Aspart (Novolog) 0 unit SUBCUT Q6H [facility]; Protocol Last Admin: 10/12/17 04:10 Dose: 6 units Admin: 10/11/17 22:52 Dose: 6 units Insulin Glargine (Lantus Solostar) 10 units SUBCUT DAILY [facility] Lisinopril (Prinivil) 10 mg PO DAILY [facility] Magnesium Oxide (Magnesium Oxide) 400 mg PO DAILY [facility] Last Admin: 10/12/17 08:17 Dose: 400 mg Ondansetron HCl (Zofran) 4 mg IVPUSH Q4H PRN PRN Reason: Nausea Pantoprazole Sodium (Protonix Iv) 40 mg IV Q12H [facility] Sodium Chloride (Saline Flush) 10 ml FLUSH ASDIRECTED PRN PRN Reason: Keep Vein Open Sodium Chloride (Saline Flush) 2.5 ml FLUSH ASDIRECTED PRN PRN Reason: Keep Vein Open Venlafaxine HCl (Effexor Xr) 225 mg PO BEDTIME [facility]
[2017-10-12] MEDS: Insulin Glargine,Human Rec. Analog 100 Units/ML 3 ML Pen SUBCUT SCH (10:28)
[2017-10-12] MEDS: Pantoprazole 40 MG Vial IV SCH (20:32)
[2017-10-12] MEDS: Gabapentin 300 MG Cap PO SCH (20:34)
[2017-10-12] MEDS: Lisinopril 10 MG Tab PO SCH (20:34)
[2017-10-12] MEDS: Venlafaxine 75 MG Cap.ER PO SCH (20:34)
[2017-10-12] MEDS: hydrOXYzine HCl 25 MG Tab PO SCH (20:34)
[2017-10-12] MEDS ORDERED: Divalproex Sodium Delayed-Release 500 MG Tab.CR PO SCH (21:00)
[2017-10-12] MEDS: Enoxaparin 40 MG/0.4 ML Syringe SUBCUT SCH (22:27)
[2017-10-12] MEDS: Fish Oil/Omega-3 Fatty Acids 1 Gm Cap PO SCH (23:35)
[2017-10-13] MEDS: Sodium Chloride 0.9% 1,000 ML IV SCH ×5 (00:38→22:22)
[2017-10-13] MEDS: Insulin Aspart 100 Units/ML 3 ML Pen SUBCUT SCH ×4 (04:02→23:05)
--- NOTE | 2017-10-13 06:56 | HP ---
DATE OF : 1980 PRIMARY CARE PHYSICIAN: None PCP HISTORY OF PRESENT ILLNESS: The patient is a 37-year-old female, presented to emergency room last night because of pain that was localized in the epigastrium and was radiating in her back and across the abdomen. The patient's pain was severe and was stabbing like. She was recently seen by urologist at [facility] for lithotripsy. The patient states that prior to lithotripsy, she had epigastric pain and acid reflux, and after the lithotripsy, she was on medication, and she was weaned of the medication a day ago.Patient denies alcohol use and says that her her cholesterol was normal. She also reports diarrhea for 1 day, few bowel movements PAST MEDICAL HISTORY: She has anxiety, allergies, and sleep apnea. She is also morbidly obese. She has gout. She has diabetes mellitus, mood disorders, and hypertension PAST SURGICAL HISTORY: She had 4 lithotripsies, 3 C-sections, broken arm, gallbladder surgery, tubal ligation, and hysterectomy. ALLERGIES: The patient is allergic to banana, latex, cats, cloth Band-Aids, fruit, and she has seasonal allergies. SOCIAL HISTORY: She smoked half pack per day for the past couple of years, and she works at [employer]. No alcohol use. No recreational drug use. FAMILY HISTORY: Her father had heart problems and depression, and her grandmother had cancer. VITAL SIGNS: At admission, her temperature 97.2, pulse rate 87, blood pressure 107/56, respiratory rate 18, and oxygen saturation 98%. PHYSICAL EXAMINATION: HEENT: Her head is atraumatic and normocephalic. Pupils equally reactive to light. NECK: Supple. No thyromegaly. No lymphadenopathy. HEART: S1 and S2. Regular rhythm and rate. LUNGS: Clear to auscultation bilateral. ABDOMEN: Soft. There is mild tenderness to palpation in the epigastrium. Positive bowel sounds. EXTREMITIES: No edema. NEUROLOGIC: The patient is alert and oriented x3. There are no gross focal neurologic deficits. LABORATORY DATA: At admission, her WBC 18.75, hemoglobin 14.3, hematocrit 41.7, and platelet count 310. Chemistry; sodium 124, potassium 3.9, chloride 86, CO2 of 22.4, BUN 8, creatinine 0.9, estimated creatinine clearance 63.33, and glucose 384. Hemoglobin A1c 11.5. Calcium 9.5, total bilirubin 0.7, AST 30, ALT 42, alkaline phosphatase 93, total protein 8.6, albumin 3.7, and globulin 4.9. Amylase 19 and lipase 527. Urinalysis, urine color is yellow, urine appearance hazy, urine pH 6, urine specific gravity less than 1.005, urine glucose more than 1000, urine ketones 40, urine occult blood large, urine nitrite negative, urine bilirubin negative, urine urobilinogen 0.2, urine leukocyte esterase negative, rbc's 8 to 10, WBC-nl urine epithelial cells few. H. pylori antibody is positive. ASSESSMENT: 1. . Acute pancreatitis.. 2 Gastritis, Helicobacter pylori positive 3. Uncontrolled diabetes mellitus. 4. Mood disorders. 5. Hypertension, uncontrolled. PLAN: We will admit the patient to medical floor. We will start the patient on IV fluids at 200 mL/h. We will put the patient n.p.o., and we will monitor lipase. We will monitor the patient clinically. We will order lipid profile. For pain, we will give the patient hydromorphone 1 mg IV push q.3 hours p.r.n. For uncontrolled diabetes mellitus, we will give the patient 10 units of insulin glargine, and we will follow up with insulin on sliding scale q.6 hours, patient currently is NPO . DVT prophylaxis, we will give the patient Lovenox 40 mg subcutaneous q.24 hours. For gastritis, we will give the patient Protonix 40 mg IV q.12 hours. For depression, we will continue the patient with Effexor 225 mg p.o. at bedtime, and we will hold Depakote due to pancreatitis, and for neuropathy will continue the patient with Neurontin 600 mg p.o. at bedtime. For diarrhea will do stool culture and stool for c diff and will reevaluate for Hpilory /gastritis- will give patient protonix 40 mg iv q 12h and will start patient on Iv antibiotics when her pancreatitis resolve as her antibiotics are po and currently she is nauseated. ANTOPET / MODL /[id number] HOLLY
[2017-10-13 06:58] LABS: CHLORIDE,CL 103 mmol/L (98-107); SODIUM,NA 138 mmol/L (136-145)
[2017-10-13] MEDS: Cholecalciferol (Vitamin D3) 1,000 Unit Tab PO SCH (09:17)
[2017-10-13] MEDS: Magnesium Oxide 400 MG Tab PO SCH (09:17)
[2017-10-13] MEDS: Pantoprazole 40 MG Vial IV SCH ×2 (09:17→20:45)
[2017-10-13] MEDS: Lisinopril 10 MG Tab PO SCH (09:17)
[2017-10-13] MEDS: HYDROmorphone 1 MG/ML Syringe IVPUSH PRN (09:19)
[2017-10-13] MEDS: Insulin Glargine,Human Rec. Analog 100 Units/ML 3 ML Pen SUBCUT SCH (09:39)
[2017-10-13] MEDS ORDERED: metroNIDAZOLE 250 MG Tab PO SCH (09:45)
[2017-10-13] MEDS: Fish Oil/Omega-3 Fatty Acids 1 Gm Cap PO SCH ×2 (10:32→20:45)
[2017-10-13] MEDS: metroNIDAZOLE/Normal Saline 500 MG in Premix Bag 1 BAG IV SCH ×3 (11:26→23:14)
[2017-10-13] MEDS ORDERED: Insulin Glargine,Human Rec. Analog 100 Units/ML 3 ML Pen SUBCUT ONE (13:00)
--- NOTE | 2017-10-13 13:06 | CT ---
EXAM DATE: 10/11/17 PATIENT'S AGE: 37 Patient: DOUGLAS ZABALA Facility: [place], [place] Site . Site : 1980 Study: CT Abdomen/Pelvis [id number] 7:15:29 PM Ordering Physician: Doctor Valencia Final Report: HISTORY: Abdominal pain, nausea, dizziness. TECHNIQUE: CT abdomen pelvis with IV contrast. COMPARISON: None. FINDINGS: Abdomen: Diffusely decreased attenuation of the liver. No hepatic mass. Cholelithiasis. No bile duct dilation. Stranding of fat around the pancreatic tail. Within the distal pancreatic tail is a somewhat poorly defined 1 cm area of decreased attenuation (axial series 3 image 37, coronal series [id number] images [id number]). Pancreatic parenchyma otherwise enhances homogeneously. No spleen lesions. Spleen is normal size. No adrenal nodules. Kidneys enhance symmetrically. Several subcentimeter hypodense lesions in both kidneys are too small to characterize but are likely cysts. 12 mm nonobstructing calculus in the lower pole of the left kidney. No hydronephrosis. No dilated bowel. Appendix is normal. No free fluid. No free intraperitoneal gas. No lymphadenopathy. Abdominal aorta is normal caliber. Mild atherosclerosis. Pelvis: Uterus is absent. 3.3 x 3.5 cm right ovarian cyst. No lymphadenopathy. 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: Unremarkable. Lower chest: Linear atelectasis in the lingula. IMPRESSION: 1. Inflammatory change around the pancreatic tail compatible with acute pancreatitis. 1 cm hypodense mass versus small area of pancreatic necrosis in the pancreatic tail in the area of inflammatory change. Recommend further assessment with contrast-enhanced MRI of the pancreas. 2. Fatty infiltration of the liver. 3. Nonobstructing left renal calculus. 4. 3.5 cm right ovarian cyst. Please note that all CT scans at this facility use dose modulation, iterative reconstruction, and/or weight-based dosing when appropriate to reduce radiation dose to as low as reasonably achievable. Dictated by Juan Menendez MD @ Oct 11 2017 7:26PM (Electronic Signature) Report Signed by Proxy. HOLLY
[2017-10-13] MEDS: HYDROmorphone 2 MG/ML SDV IVPUSH PRN ×2 (13:24→19:09)
--- NOTE | 2017-10-13 17:14 | PCM.PN ---
- General Info Date of Service: 10/13/17 Admission Dx/Problem (Free Text): Has abdominal pain, dilaudid increased to 2 mg q 4 h , Triglycerides are in the 700 this morning , lab was called and they redid the triglycerides and the value obtained yesterday was an error , patient real triglyceride level was 1080. Stool for c diff was positive - Review of Systems General: Reports: Fatigue Pulmonary: Reports: No Symptoms Cardiovascular: Reports: No Symptoms Gastrointestinal: Reports: Abdominal Pain, Diarrhea Genitourinary: Reports: No Symptoms 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: Reports: No Symptoms Skin: Reports: No Symptoms Neurological: Reports: No Symptoms Psychiatric: Reports: Depression - Patient Data Vitals - Most Recent: Last Vital Signs Temp 96.0 F 10/13/17 15:22 Pulse 83 10/13/17 15:22 Resp 22 H 10/13/17 15:22 BP 112/54 L 10/13/17 15:22 Pulse Ox 91 L 10/13/17 15:22 Weight - Most Recent: 221 lb 6.4 oz I&O - Last 24 Hours: Intake & Output 10/13/17 10/13/17 10/13/17 06:59 14:59 22:59 Intake Total 6443 011 3548 Output Total 2000 2200 Balance -403 100 114 Lab Results Last 24 Hours: Laboratory Results - last 24 hr 10/12/17 10/12/17 10/13/17 Range/Units 06:01 22:23 03:59 WBC (4.0-11.0) K/uL RBC (4.30-5.90) M/uL Hgb (12.0-16.0) g/dL Hct (36.0-46.0) % MCV (80.0-98.0) fL MCH (27.0-32.0) pg MCHC (31.0-37.0) g/dL RDW Std Deviation (28.0-62.0) fl RDW Coeff of Felix (11.0-15.0) % Plt Count (150-400) K/uL MPV (7.40-12.00) fL Neut % (Auto) (48.0-80.0) % Lymph % (Auto) (16.0-40.0) % Ford % (Auto) (0.0-15.0) % Eos % (Auto) (0.0-7.0) % Baso % (Auto) (0.0-1.5) % Neut # (Auto) (1.4-5.7) K/uL Lymph # (Auto) (0.6-2.4) K/uL Ford # (Auto) (0.0-0.8) K/uL Eos # (Auto) (0.0-0.7) K/uL Baso # (Auto) (0.0-0.1) K/uL Nucleated RBC % /100WBC Nucleated RBCs # K/uL Sodium (136-145) mmol/L Potassium (3.5-5.1) mmol/L Chloride (98-107) mmol/L Carbon Dioxide (21.0-32.0) mmol/L BUN (7.0-18.0) mg/dL Creatinine (0.6-1.0) mg/dL Est Cr Clr Drug Dosing mL/min Estimated GFR (MDRD) ml/min Glucose (74-106) mg/dL POC Glucose 193 H 216 H (60-110) mg/dL Calcium (8.5-10.1) mg/dL Magnesium (1.8-2.4) mg/dL Total Bilirubin (0.2-1.0) mg/dL AST (15-37) IU/L ALT (14-63) IU/L Alkaline Phosphatase (46-116) U/L Total Protein (6.4-8.2) g/dL Albumin (3.4-5.0) g/dL Globulin (2.0-3.5) g/dL Albumin/Globulin Ratio (1.3-2.8) Triglycerides 1058 H (0-200) mg/dL Cholesterol (50-200) mg/dL VLDL Cholesterol 211 H (5-55) mg/dL HDL Cholesterol (40-60) mg/dL Cholesterol/HDL Ratio (3.3-6.0) 10/13/17 10/13/17 10/13/17 Range/Units 06:14 06:14 06:14 WBC 8.95 (4.0-11.0) K/uL RBC 3.65 L (4.30-5.90) M/uL Hgb 10.4 L (12.0-16.0) g/dL Hct 32.0 L (36.0-46.0) % MCV 87.7 (80.0-98.0) fL MCH 28.5 (27.0-32.0) pg MCHC 32.5 (31.0-37.0) g/dL RDW Std Deviation 43.7 (28.0-62.0) fl RDW Coeff of Felix 14 (11.0-15.0) % Plt Count 208 (150-400) K/uL MPV 9.50 (7.40-12.00) fL Neut % (Auto) 68.1 (48.0-80.0) % Lymph % (Auto) 20.1 (16.0-40.0) % Ford % (Auto) 7.9 (0.0-15.0) % Eos % (Auto) 3.5 (0.0-7.0) % Baso % (Auto) 0.4 (0.0-1.5) % Neut # (Auto) 6.1 H (1.4-5.7) K/uL Lymph # (Auto) 1.8 (0.6-2.4) K/uL Ford # (Auto) 0.7 (0.0-0.8) K/uL Eos # (Auto) 0.3 (0.0-0.7) K/uL Baso # (Auto) 0.0 (0.0-0.1) K/uL Nucleated RBC % 0.0 /100WBC Nucleated RBCs # 0 K/uL Sodium 138 (136-145) mmol/L Potassium 3.4 L (3.5-5.1) mmol/L Chloride 103 (98-107) mmol/L Carbon Dioxide 29.3 (21.0-32.0) mmol/L BUN 5 L (7.0-18.0) mg/dL Creatinine 0.7 (0.6-1.0) mg/dL Est Cr Clr Drug Dosing 81.42 mL/min Estimated GFR (MDRD) > 60.0 ml/min Glucose 209 H (74-106) mg/dL POC Glucose (60-110) mg/dL Calcium 8.0 L (8.5-10.1) mg/dL Magnesium 1.9 (1.8-2.4) mg/dL Total Bilirubin 0.3 (0.2-1.0) mg/dL AST 28 (15-37) IU/L ALT 25 (14-63) IU/L Alkaline Phosphatase 62 (46-116) U/L Total Protein 6.6 (6.4-8.2) g/dL Albumin 2.5 L (3.4-5.0) g/dL Globulin 4.1 H (2.0-3.5) g/dL Albumin/Globulin Ratio 0.6 L (1.3-2.8) Triglycerides 728 H (0-200) mg/dL Cholesterol 155 (50-200) mg/dL VLDL Cholesterol (5-55) mg/dL HDL Cholesterol 27 L (40-60) mg/dL Cholesterol/HDL Ratio 5.7 (3.3-6.0) 10/13/17 10/13/17 10/13/17 Range/Units 09:32 10:33 14:08 WBC (4.0-11.0) K/uL RBC (4.30-5.90) M/uL Hgb (12.0-16.0) g/dL Hct (36.0-46.0) % MCV (80.0-98.0) fL MCH (27.0-32.0) pg MCHC (31.0-37.0) g/dL RDW Std Deviation (28.0-62.0) fl RDW Coeff of Felix (11.0-15.0) % Plt Count (150-400) K/uL MPV (7.40-12.00) fL Neut % (Auto) (48.0-80.0) % Lymph % (Auto) (16.0-40.0) % Ford % (Auto) (0.0-15.0) % Eos % (Auto) (0.0-7.0) % Baso % (Auto) (0.0-1.5) % Neut # (Auto) (1.4-5.7) K/uL Lymph # (Auto) (0.6-2.4) K/uL Ford # (Auto) (0.0-0.8) K/uL Eos # (Auto) (0.0-0.7) K/uL Baso # (Auto) (0.0-0.1) K/uL Nucleated RBC % /100WBC Nucleated RBCs # K/uL Sodium (136-145) mmol/L Potassium (3.5-5.1) mmol/L Chloride (98-107) mmol/L Carbon Dioxide (21.0-32.0) mmol/L BUN (7.0-18.0) mg/dL Creatinine (0.6-1.0) mg/dL Est Cr Clr Drug Dosing mL/min Estimated GFR (MDRD) ml/min Glucose (74-106) mg/dL POC Glucose 211 H 202 H 177 H (60-110) mg/dL Calcium (8.5-10.1) mg/dL Magnesium (1.8-2.4) mg/dL Total Bilirubin (0.2-1.0) mg/dL AST (15-37) IU/L ALT (14-63) IU/L Alkaline Phosphatase (46-116) U/L Total Protein (6.4-8.2) g/dL Albumin (3.4-5.0) g/dL Globulin (2.0-3.5) g/dL Albumin/Globulin Ratio (1.3-2.8) Triglycerides (0-200) mg/dL Cholesterol (50-200) mg/dL VLDL Cholesterol (5-55) mg/dL HDL Cholesterol (40-60) mg/dL Cholesterol/HDL Ratio (3.3-6.0) Collin Results Last 24 Hours: Microbiology 10/13/17 04:47 Clostridium difficile Toxin A & B - Final Stool / Feces Positive C. Diff Antigen 10/13/17 04:22 Campylobacter Antigen Assay - Final Stool / Feces NEGATIVE CAMPYLOBACTER AG 10/13/17 04:16 Stool for WBCs - Final Stool / Feces POSITIVE FOR WBC'S Med Orders - Current: Current Medications Albuterol/Ipratropium (Duoneb 3.0-0.5 Mg/3 Ml) 3 ml NEB Q4HRRT PRN PRN Reason: Shortness Of Breath/wheezing Cholecalciferol (Vitamin D3) 1,000 units PO DAILY [facility] Last Admin: 10/13/17 09:17 Dose: 1,000 units Enoxaparin Sodium (Lovenox) 40 mg SUBCUT Q24H BRISA Last Admin: 10/12/17 22:27 Dose: 40 mg Fish Oil (Fish Oil) 2 gm PO BID BRISA Last Admin: 10/13/17 10:32 Dose: 2 gm Gabapentin (Neurontin) 600 mg PO BEDTIME [facility] Last Admin: 10/12/17 20:34 Dose: 600 mg Hydromorphone HCl (Dilaudid) 2 mg IVPUSH Q4H PRN PRN Reason: Pain Last Admin: 10/13/17 13:24 Dose: 2 mg Hydroxyzine HCl (Atarax) 50 mg PO BEDTIME [facility] Last Admin: 10/12/17 20:34 Dose: 50 mg Sodium Chloride (Normal Saline) 1,000 mls @ 200 mls/hr IV ASDIRECTED [facility] Last Admin: 10/13/17 15:53 Dose: 200 mls/hr Metronidazole 500 mg/ Premix 100 mls @ 100 mls/hr IV QID [facility] Last Admin: 10/13/17 11:26 Dose: 100 mls/hr Insulin Aspart (Novolog) 0 unit SUBCUT Q6H [facility]; Protocol Last Admin: 10/13/17 15:57 Dose: Not Given Insulin Glargine (Lantus Solostar) 10 units SUBCUT DAILY [facility] Last Admin: 10/13/17 09:39 Dose: 10 units Lisinopril (Prinivil) 10 mg PO DAILY [facility] Last Admin: 10/13/17 09:17 Dose: 10 mg Magnesium Oxide (Magnesium Oxide) 400 mg PO DAILY [facility] Last Admin: 10/13/17 09:17 Dose: 400 mg Ondansetron HCl (Zofran) 4 mg IVPUSH Q4H PRN PRN Reason: Nausea Pantoprazole Sodium (Protonix Iv) 40 mg IV Q12H [facility] Last Admin: 10/13/17 09:17 Dose: 40 mg Sodium Chloride (Saline Flush) 10 ml FLUSH ASDIRECTED PRN PRN Reason: Keep Vein Open Sodium Chloride (Saline Flush) 2.5 ml FLUSH ASDIRECTED PRN PRN Reason: Keep Vein Open Venlafaxine HCl (Effexor Xr) 225 mg PO BEDTIME [facility] Last Admin: 10/12/17 20:34 Dose: 225 mg Discontinued Medications Al Hydroxide/Mg Hydroxide 15 ml/ Metoclopramide HCl 5 mg/Lidocaine HCl 5 ml 0 ml PO ONETIME ONE Stop: 10/11/17 17:32 Last Admin: 10/11/17 18:26 Dose: 25 each Diphtheria/Tetanus/Acell Pertussis (Adacel) 0.5 ml IM .ONCE ONE Stop: 10/11/17 18:48 Divalproex Sodium (Depakote) 500 mg PO BEDTIME BRISA Last Admin: 10/12/17 20:33 Dose: 500 mg Erythromycin (Erythromycin 0.5% Ophth Oint) 1 gm EYEBOTH ONETIME ONE Stop: 10/11/17 18:48 Last Admin: 10/12/17 01:25 Dose: Not Given Famotidine (Pepcid) 20 mg IVPUSH ONETIME ONE Stop: 10/11/17 19:18 Last Admin: 10/11/17 19:49 Dose: 20 mg Hydromorphone HCl (Dilaudid) 1 mg IVPUSH Q3H PRN PRN Reason: Pain Last Admin: 10/13/17 09:19 Dose: 1 mg Sodium Chloride (Normal Saline) 1,000 mls @ 999 mls/hr IV STAT ONE Stop: 10/11/17 18:29 Last Admin: 10/11/17 18:30 Dose: 999 mls/hr Sodium Chloride (Normal Saline) 1,000 mls @ 150 mls/hr IV STAT ONE Stop: 10/12/17 02:09 Last Admin: 10/11/17 19:53 Dose: 999 mls/hr Pantoprazole Sodium 80 mg/ (Sodium Chloride) 100 mls @ 10 mls/hr IV .Continuous BRISA Last Admin: 10/12/17 05:28 Dose: 10 mls/hr Lactated Ringer's (Ringers, Lactated) 1,000 mls @ 200 mls/hr IV ASDIRECTED [facility] Insulin Glargine (Lantus Solostar) 10 units SUBCUT DAILY ONE Stop: 10/13/17 13:01 Last Admin: 10/13/17 14:11 Dose: 10 units Iopamidol (Isovue Multipack-370 (76%)) 100 ml IVPUSH ONETIME STA Stop: 10/11/17 18:52 Last Admin: 10/11/17 18:52 Dose: 100 ml Lisinopril (Prinivil) 10 mg PO DAILY [facility] Metronidazole (Metronidazole) 500 mg PO Q8H [facility] Last Admin: 10/13/17 10:33 Dose: Not Given Morphine Sulfate (Morphine) 4 mg IVPUSH ONETIME ONE Stop: 10/11/17 19:18 Last Admin: 10/11/17 19:58 Dose: Not Given Morphine Sulfate (Morphine) 4 mg IVPUSH ONETIME ONE Stop: 10/11/17 19:56 Last Admin: 10/11/17 20:00 Dose: 4 mg Ondansetron HCl (Zofran) 4 mg IVPUSH ONETIME ONE Stop: 10/11/17 17:32 Last Admin: 10/11/17 18:28 Dose: 4 mg Venlafaxine HCl (Effexor Xr) 225 mg PO ONETIME ONE Stop: 10/11/17 23:01 Last Admin: 10/11/17 22:46 Dose: 225 mg - Exam General: Alert, Oriented HEENT: Pupils Equal, Pupils Reactive, EOMI Neck: Supple, Trachea Midline, No JVD, No Thyromegaly Lungs: Clear to Auscultation, Normal Respiratory Effort Cardiovascular: Regular Rate, Regular Rhythm, No Murmurs GI/Abdominal Exam: Normal Bowel Sounds, Soft, Non-Tender, No Organomegaly, No Distention Back Exam: Normal Inspection Extremities: Normal Inspection Skin: Warm, Dry Neurological: No New Focal Deficit Psy/Mental Status: Alert, Normal Affect - Problem List & Annotations (1) Mood disorder SNOMED Code(s): 60367966 Code(s): F39 - UNSPECIFIED MOOD [AFFECTIVE] DISORDER Status: Acute Current Visit: Yes (2) Helicobacter pylori (H. pylori) infection SNOMED Code(s): 490021638 Code(s): A04.8 - OTHER SPECIFIED BACTERIAL INTESTINAL INFECTIONS Status: Acute Current Visit: Yes (3) Pancreatitis SNOMED Code(s): 16101256 Code(s): K85.90 - ACUTE PANCREATITIS WITHOUT NECROSIS OR INFECTION, UNSP Status: Acute Current Visit: Yes Qualifiers: Chronicity: acute Pancreatitis type: unspecified pancreatitis type Acute pancreatitis complication: unspecified Qualified Code(s): K85.90 - Acute pancreatitis without necrosis or infection, unspecified (4) C. difficile diarrhea SNOMED Code(s): 3303715605912 Code(s): A04.72 - ENTEROCOLITIS D/T CLOSTRIDIUM DIFFICILE, NOT SPCF RECUR Status: Acute Current Visit: Yes (5) Diabetes mellitus type 2, uncontrolled SNOMED Code(s): 27223703, 525389248 Code(s): E11.65 - TYPE 2 DIABETES MELLITUS WITH HYPERGLYCEMIA Status: Acute Current Visit: Yes - Problem List Review Problem List Initiated/Reviewed/Updated: Yes - My Orders Last 24 Hours: My Active Orders 10/12/17 21:00 Gabapentin [Neurontin] 600 mg PO BEDTIME Lisinopril [Prinivil] 10 mg PO DAILY Pantoprazole [ProTONIX IV] 40 mg IV Q12H Venlafaxine [Effexor XR] 225 mg PO BEDTIME hydrOXYzine HCl [Atarax] 50 mg PO BEDTIME 10/12/17 23:30 Fish Oil/[place]-3 Fatty Acids [Fish Oil] 2 gm PO BID 10/13/17 04:16 H PYLORI STOOL ANTIGEN [MREF] Routine WBC, STOOL [OP] Routine 10/13/17 04:22 CULTURE STOOL + CAMPY+SHIGATOX [RM] Routine 10/13/17 09:39 Isolation [COMM] Routine 10/13/17 10:12 HYDROmorphone [Dilaudid] 2 mg IVPUSH Q4H PRN 10/13/17 12:00 metroNIDAZOLE/Normal Saline [Flagyl 500 MG in NS 100 ML] 500 mg Premix Bag 1 bag IV QID 10/13/17 12:50 Consult to Script Editor [Consult to Diabetic Nurse Specialist] [CONS] Routine 10/13/17 12:53 Patient Status [ADT] Routine 10/14/17 05:11 CBC WITH AUTO DIFF [HEME] AM COMPREHENSIVE METABOLIC PN,CMP [CHEM] AM MAGNESIUM [CHEM] AM 10/15/17 05:11 CBC WITH AUTO DIFF [HEME] AM COMPREHENSIVE METABOLIC PN,CMP [CHEM] AM MAGNESIUM [CHEM] AM 10/16/17 05:11 CBC WITH AUTO DIFF [HEME] AM MAGNESIUM [CHEM] AM - Plan Plan:: Acute pancreatitis Hypertryglyceridemia C diff colitis DM uncontrolled Mood disorder H pylory gastritis Plan Will continue patients with iv fluids , NPO , increase Dilaudid 2 mg iv q 4 h prn for pain , metronidazole 500 mg iv qid Fish oil 2 grams po Bid lantus 20 units swq daily , 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 Continue effexor 2225 mg po q hs Protonix 40 mg iv Bid DVT prof lovenox 40 mg sq Antibiotics for H pylori upon patient discharge
[2017-10-13] MEDS: hydrOXYzine HCl 25 MG Tab PO SCH (20:48)
[2017-10-13] MEDS: Venlafaxine 75 MG Cap.ER PO SCH (20:48)
[2017-10-13] MEDS: Gabapentin 300 MG Cap PO SCH (20:49)
[2017-10-13] MEDS: Enoxaparin 40 MG/0.4 ML Syringe SUBCUT SCH (23:11)
[2017-10-13] MEDS: Betamethasone Dipropionate/Clotrimazole 0.05-1% Crm 15 GM Tube TOP SCH (23:42)
[2017-10-14] MEDS: Insulin Aspart 100 Units/ML 3 ML Pen SUBCUT SCH ×4 (04:03→22:11)
[2017-10-14 06:11] LABS: CHLORIDE,CL 103 mmol/L (98-107); SODIUM,NA 140 mmol/L (136-145)
[2017-10-14] MEDS: metroNIDAZOLE/Normal Saline 500 MG in Premix Bag 1 BAG IV SCH ×4 (07:00→23:26)
[2017-10-14] MEDS: Fish Oil/Omega-3 Fatty Acids 1 Gm Cap PO SCH ×2 (08:20→21:05)
[2017-10-14] MEDS: Magnesium Oxide 400 MG Tab PO SCH (08:24)
[2017-10-14] MEDS: Lisinopril 10 MG Tab PO SCH (08:24)
[2017-10-14] MEDS: Pantoprazole 40 MG Vial IV SCH (08:25)
[2017-10-14] MEDS: Cholecalciferol (Vitamin D3) 1,000 Unit Tab PO SCH (08:25)
[2017-10-14] MEDS: Insulin Glargine,Human Rec. Analog 100 Units/ML 3 ML Pen SUBCUT SCH (08:33)
[2017-10-14] MEDS: HYDROmorphone 2 MG/ML SDV IVPUSH PRN ×2 (10:14→21:16)
[2017-10-14] MEDS: Betamethasone Dipropionate/Clotrimazole 0.05-1% Crm 15 GM Tube TOP SCH (10:26)
[2017-10-14] MEDS: Sodium Chloride 0.9% 1,000 ML IV SCH ×3 (10:53→23:26)
[2017-10-14] MEDS: Vancomycin 25 MG/ML Compounding Kit PO SCH ×2 (11:55→18:07)
[2017-10-14] MEDS: Ondansetron 4 MG/2 ML SDV IVPUSH PRN ×2 (12:10→20:47)
--- NOTE | 2017-10-14 13:53 | PCM.PN ---
- General Info Date of Service: 10/14/17 Admission Dx/Problem (Free Text): Has abdominal pain, dilaudid increased to 2 mg q 4 h , Triglycerides are in the 700 this morning , lab was called and they redid the triglycerides and the value obtained yesterday was an error , patient real triglyceride level was 1080. Stool for c diff was positive Subjective Update: Feeling like she is having more bowel movements today with abdominal cramping. Feels ill and appetite is poor. NO chest pain or sob. Epigastric pain is better. Functional Status: Reports: Ambulating, Urinating. Denies: Tolerating Diet - Review of Systems General: Reports: No Symptoms. Denies: Fever, Weakness, Fatigue, Malaise Pulmonary: Reports: No Symptoms. Denies: Shortness of Breath Cardiovascular: Reports: No Symptoms. Denies: Chest Pain Gastrointestinal: Reports: Abdominal Pain, Diarrhea, Nausea (with fish oil). Denies: Vomiting Genitourinary: Reports: No Symptoms. Denies: Dysuria, Frequency, Burning 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: Reports: No Symptoms Neurological: Reports: No Symptoms Psychiatric: Reports: No Symptoms - Patient Data Vitals - Most Recent: Last Vital Signs Temp 97.5 F 10/14/17 12:00 Pulse 70 10/14/17 12:00 Resp 20 10/14/17 12:00 BP 152/78 H 10/14/17 12:00 Pulse Ox 92 L 10/14/17 12:00 Weight - Most Recent: 100.425 kg I&O - Last 24 Hours: Intake & Output 10/13/17 10/14/17 10/14/17 22:59 06:59 14:59 Intake Total 2414 2300 Output Total 2200 2500 Balance 214 -200 Lab Results Last 24 Hours: Laboratory Results - last 24 hr 10/13/17 10/13/17 10/13/17 Range/Units 14:08 15:57 23:03 WBC (4.0-11.0) K/uL RBC (4.30-5.90) M/uL Hgb (12.0-16.0) g/dL Hct (36.0-46.0) % MCV (80.0-98.0) fL MCH (27.0-32.0) pg MCHC (31.0-37.0) g/dL RDW Std Deviation (28.0-62.0) fl RDW Coeff of Felix (11.0-15.0) % Plt Count (150-400) K/uL MPV (7.40-12.00) fL Neut % (Auto) (48.0-80.0) % Lymph % (Auto) (16.0-40.0) % [place] % (Auto) (0.0-15.0) % Eos % (Auto) (0.0-7.0) % Baso % (Auto) (0.0-1.5) % Neut # (Auto) (1.4-5.7) K/uL Lymph # (Auto) (0.6-2.4) K/uL [place] # (Auto) (0.0-0.8) K/uL Eos # (Auto) (0.0-0.7) K/uL Baso # (Auto) (0.0-0.1) K/uL Nucleated RBC % /100WBC Nucleated RBCs # K/uL Sodium (136-145) mmol/L Potassium (3.5-5.1) mmol/L Chloride (98-107) mmol/L Carbon Dioxide (21.0-32.0) mmol/L BUN (7.0-18.0) mg/dL Creatinine (0.6-1.0) mg/dL Est Cr Clr Drug Dosing mL/min Estimated GFR (MDRD) ml/min Glucose (74-106) mg/dL POC Glucose 177 H 147 H 158 H (60-110) mg/dL Calcium (8.5-10.1) mg/dL Magnesium (1.8-2.4) mg/dL Total Bilirubin (0.2-1.0) mg/dL AST (15-37) IU/L ALT (14-63) IU/L Alkaline Phosphatase (46-116) U/L Total Protein (6.4-8.2) g/dL Albumin (3.4-5.0) g/dL Globulin (2.0-3.5) g/dL Albumin/Globulin Ratio (1.3-2.8) Triglycerides (0-200) mg/dL 10/14/17 10/14/17 10/14/17 Range/Units 04:00 05:00 05:00 WBC 7.24 (4.0-11.0) K/uL RBC 3.67 L (4.30-5.90) M/uL Hgb 10.3 L (12.0-16.0) g/dL Hct 32.0 L (36.0-46.0) % MCV 87.2 (80.0-98.0) fL MCH 28.1 (27.0-32.0) pg MCHC 32.2 (31.0-37.0) g/dL RDW Std Deviation 43.5 (28.0-62.0) fl RDW Coeff of Felix 14 (11.0-15.0) % Plt Count 223 (150-400) K/uL MPV 9.70 (7.40-12.00) fL Neut % (Auto) 62.1 (48.0-80.0) % Lymph % (Auto) 22.1 (16.0-40.0) % [place] % (Auto) 10.6 (0.0-15.0) % Eos % (Auto) 4.8 (0.0-7.0) % Baso % (Auto) 0.4 (0.0-1.5) % Neut # (Auto) 4.5 (1.4-5.7) K/uL Lymph # (Auto) 1.6 (0.6-2.4) K/uL [place] # (Auto) 0.8 (0.0-0.8) K/uL Eos # (Auto) 0.4 (0.0-0.7) K/uL Baso # (Auto) 0.0 (0.0-0.1) K/uL Nucleated RBC % 0.0 /100WBC Nucleated RBCs # 0 K/uL Sodium 140 (136-145) mmol/L Potassium 3.3 L (3.5-5.1) mmol/L Chloride 103 (98-107) mmol/L Carbon Dioxide 28.2 (21.0-32.0) mmol/L BUN 4 L (7.0-18.0) mg/dL Creatinine 0.6 (0.6-1.0) mg/dL Est Cr Clr Drug Dosing 94.99 mL/min Estimated GFR (MDRD) > 60.0 ml/min Glucose 180 H (74-106) mg/dL POC Glucose 169 H (60-110) mg/dL Calcium 8.4 L (8.5-10.1) mg/dL Magnesium 1.8 (1.8-2.4) mg/dL Total Bilirubin 0.3 (0.2-1.0) mg/dL AST 52 H (15-37) IU/L ALT 28 (14-63) IU/L Alkaline Phosphatase 60 (46-116) U/L Total Protein 6.5 (6.4-8.2) g/dL Albumin 2.4 L (3.4-5.0) g/dL Globulin 4.1 H (2.0-3.5) g/dL Albumin/Globulin Ratio 0.6 L (1.3-2.8) Triglycerides (0-200) mg/dL 10/14/17 Range/Units 05:00 WBC (4.0-11.0) K/uL RBC (4.30-5.90) M/uL Hgb (12.0-16.0) g/dL Hct (36.0-46.0) % MCV (80.0-98.0) fL MCH (27.0-32.0) pg MCHC (31.0-37.0) g/dL RDW Std Deviation (28.0-62.0) fl RDW Coeff of Felix (11.0-15.0) % Plt Count (150-400) K/uL MPV (7.40-12.00) fL Neut % (Auto) (48.0-80.0) % Lymph % (Auto) (16.0-40.0) % [place] % (Auto) (0.0-15.0) % Eos % (Auto) (0.0-7.0) % Baso % (Auto) (0.0-1.5) % Neut # (Auto) (1.4-5.7) K/uL Lymph # (Auto) (0.6-2.4) K/uL [place] # (Auto) (0.0-0.8) K/uL Eos # (Auto) (0.0-0.7) K/uL Baso # (Auto) (0.0-0.1) K/uL Nucleated RBC % /100WBC Nucleated RBCs # K/uL Sodium (136-145) mmol/L Potassium (3.5-5.1) mmol/L Chloride (98-107) mmol/L Carbon Dioxide (21.0-32.0) mmol/L BUN (7.0-18.0) mg/dL Creatinine (0.6-1.0) mg/dL Est Cr Clr Drug Dosing mL/min Estimated GFR (MDRD) ml/min Glucose (74-106) mg/dL POC Glucose (60-110) mg/dL Calcium (8.5-10.1) mg/dL Magnesium (1.8-2.4) mg/dL Total Bilirubin (0.2-1.0) mg/dL AST (15-37) IU/L ALT (14-63) IU/L Alkaline Phosphatase (46-116) U/L Total Protein (6.4-8.2) g/dL Albumin (3.4-5.0) g/dL Globulin (2.0-3.5) g/dL Albumin/Globulin Ratio (1.3-2.8) Triglycerides 551 H (0-200) mg/dL [place] Results Last 24 Hours: Microbiology 10/13/17 04:16 Helicobacter pylori Antigen - Final Stool / Feces 10/13/17 04:22 Campylobacter Antigen Assay - Final Stool / Feces NEGATIVE [facility]AMPYLOBACTER AG - Final NEGATIVE FOR SHIGA TOXIN 1 - Final NEGATIVE FOR SHIGA TOXIN 2 Med Orders - Current: Current Medications Albuterol/Ipratropium (Duoneb 3.0-0.5 Mg/3 Ml) 3 ml NEB Q4HRRT PRN PRN Reason: Shortness Of Breath/wheezing Betamethasone/Clotrimazole (Lotrisone) 0 gm TOP BID [facility] Last Admin: 10/14/17 10:26 Dose: Not Given Cholecalciferol (Vitamin D3) 1,000 units PO DAILY [facility] Last Admin: 10/14/17 08:25 Dose: 1,000 units Enoxaparin Sodium (Lovenox) 40 mg SUBCUT Q24H [facility] Last Admin: 10/13/17 23:11 Dose: 40 mg Fish Oil (Fish Oil) 2 gm PO BID [facility] Last Admin: 10/14/17 08:20 Dose: 2 gm Gabapentin (Neurontin) 600 mg PO BEDTIME [facility] Last Admin: 10/13/17 20:49 Dose: 600 mg Hydromorphone HCl (Dilaudid) 2 mg IVPUSH Q4H PRN PRN Reason: Pain Last Admin: 10/14/17 10:14 Dose: 2 mg Hydroxyzine HCl (Atarax) 50 mg PO BEDTIME [facility] Last Admin: 10/13/17 20:48 Dose: 50 mg Sodium Chloride (Normal Saline) 1,000 mls @ 200 mls/hr IV ASDIRECTED [facility] Last Admin: 10/14/17 10:53 Dose: 200 mls/hr Metronidazole 500 mg/ Premix 100 mls @ 100 mls/hr IV QID [facility] Last Admin: 10/14/17 11:54 Dose: 100 mls/hr Insulin Aspart (Novolog) 0 unit SUBCUT Q6H [facility]; Protocol Last Admin: 10/14/17 10:25 Dose: 2 units Insulin Glargine (Lantus Solostar) 20 units SUBCUT DAILY [facility] Last Admin: 10/14/17 08:33 Dose: 20 units Lisinopril (Prinivil) 10 mg PO DAILY [facility] Last Admin: 10/14/17 08:24 Dose: 10 mg Magnesium Oxide (Magnesium Oxide) 400 mg PO DAILY [facility] Last Admin: 10/14/17 08:24 Dose: 400 mg Ondansetron HCl (Zofran) 4 mg IVPUSH Q4H PRN PRN Reason: Nausea Last Admin: 10/14/17 12:10 Dose: 4 mg Pantoprazole Sodium (Protonix Iv) 40 mg IV Q12H [facility] Last Admin: 10/14/17 08:25 Dose: 40 mg Sodium Chloride (Saline Flush) 10 ml FLUSH ASDIRECTED PRN PRN Reason: Keep Vein Open Sodium Chloride (Saline Flush) 2.5 ml FLUSH ASDIRECTED PRN PRN Reason: Keep Vein Open Vancomycin HCl (First-Vancomycin 25 Compounding Kit) 125 mg PO QID [facility] Last Admin: 10/14/17 11:55 Dose: 125 mg Venlafaxine HCl (Effexor Xr) 225 mg PO BEDTIME [facility] Last Admin: 10/13/17 20:48 Dose: 225 mg Discontinued Medications Al Hydroxide/Mg Hydroxide 15 ml/ Metoclopramide HCl 5 mg/Lidocaine HCl 5 ml 0 ml PO ONETIME ONE Stop: 10/11/17 17:32 Last Admin: 10/11/17 18:26 Dose: 25 each Diphtheria/Tetanus/Acell Pertussis (Adacel) 0.5 ml IM .ONCE ONE Stop: 10/11/17 18:48 Divalproex Sodium (Depakote) 500 mg PO BEDTIME [facility] Last Admin: 10/12/17 20:33 Dose: 500 mg Erythromycin (Erythromycin 0.5% Ophth Oint) 1 gm EYEBOTH ONETIME ONE Stop: 10/11/17 18:48 Last Admin: 10/12/17 01:25 Dose: Not Given Famotidine (Pepcid) 20 mg IVPUSH ONETIME ONE Stop: 10/11/17 19:18 Last Admin: 10/11/17 19:49 Dose: 20 mg Hydromorphone HCl (Dilaudid) 1 mg IVPUSH Q3H PRN PRN Reason: Pain Last Admin: 10/13/17 09:19 Dose: 1 mg Sodium Chloride (Normal Saline) 1,000 mls @ 999 mls/hr IV STAT ONE Stop: 10/11/17 18:29 Last Admin: 10/11/17 18:30 Dose: 999 mls/hr Sodium Chloride (Normal Saline) 1,000 mls @ 150 mls/hr IV STAT ONE Stop: 10/12/17 02:09 Last Admin: 10/11/17 19:53 Dose: 999 mls/hr Pantoprazole Sodium 80 mg/ (Sodium Chloride) 100 mls @ 10 mls/hr IV .Continuous [facility] Last Admin: 10/12/17 05:28 Dose: 10 mls/hr Lactated Ringer's (Ringers, Lactated) 1,000 mls @ 200 mls/hr IV ASDIRECTED [facility] Insulin Glargine (Lantus Solostar) 10 units SUBCUT DAILY [facility] Last Admin: 10/13/17 09:39 Dose: 10 units Insulin Glargine (Lantus Solostar) 10 units SUBCUT DAILY ONE Stop: 10/13/17 13:01 Last Admin: 10/13/17 14:11 Dose: 10 units Iopamidol (Isovue Multipack-370 (76%)) 100 ml IVPUSH ONETIME STA Stop: 10/11/17 18:52 Last Admin: 10/11/17 18:52 Dose: 100 ml Lisinopril (Prinivil) 10 mg PO DAILY [facility] Metronidazole (Metronidazole) 500 mg PO Q8H [facility] Last Admin: 10/13/17 10:33 Dose: Not Given Morphine Sulfate (Morphine) 4 mg IVPUSH ONETIME ONE Stop: 10/11/17 19:18 Last Admin: 10/11/17 19:58 Dose: Not Given Morphine Sulfate (Morphine) 4 mg IVPUSH ONETIME ONE Stop: 10/11/17 19:56 Last Admin: 10/11/17 20:00 Dose: 4 mg Ondansetron HCl (Zofran) 4 mg IVPUSH ONETIME ONE Stop: 10/11/17 17:32 Last Admin: 10/11/17 18:28 Dose: 4 mg Venlafaxine HCl (Effexor Xr) 225 mg PO ONETIME ONE Stop: 10/11/17 23:01 Last Admin: 10/11/17 22:46 Dose: 225 mg - Exam General: Alert, Oriented, Cooperative, No Acute Distress Neck: Supple Lungs: Clear to Auscultation, Normal Respiratory Effort Cardiovascular: Regular Rate, Regular Rhythm GI/Abdominal Exam: Normal Bowel Sounds, Soft, Tender (L lower quadrant.) Back Exam: Normal Inspection, Full Range of Motion Extremities: Normal Inspection, Normal Range of Motion, Non-Tender Neurological: No New Focal Deficit Psy/Mental Status: Alert, Normal Affect, Normal Mood - Problem List & Annotations (1) Pancreatitis SNOMED Code(s): 83637081 Code(s): K85.90 - ACUTE PANCREATITIS WITHOUT NECROSIS OR INFECTION, UNSP Status: Acute Current Visit: Yes Qualifiers: Chronicity: acute Pancreatitis type: unspecified pancreatitis type Acute pancreatitis complication: unspecified Qualified Code(s): K85.90 - Acute pancreatitis without necrosis or infection, unspecified (2) C. difficile diarrhea SNOMED Code(s): 6361084745190 Code(s): A04.72 - ENTEROCOLITIS D/T CLOSTRIDIUM DIFFICILE, NOT SPCF RECUR Status: Acute Current Visit: Yes (3) Abdominal pain SNOMED Code(s): 47735763 Code(s): R10.9 - UNSPECIFIED ABDOMINAL PAIN Status: Acute Current Visit: No Qualifiers: Abdominal location: generalized Qualified Code(s): R10.84 - Generalized abdominal pain (4) Diabetes mellitus type 2, uncontrolled SNOMED Code(s): 31099853, 774938127 Code(s): E11.65 - TYPE 2 DIABETES MELLITUS WITH HYPERGLYCEMIA Status: Acute Current Visit: Yes Qualifiers: Diabetes mellitus middle or intermediate school principal insulin use: without middle or intermediate school principal use Diabetes mellitus complication status: without complication Qualified Code(s): E11.65 - Type 2 diabetes mellitus with hyperglycemia (5) Helicobacter pylori (H. pylori) infection SNOMED Code(s): 367622358 Code(s): A04.8 - OTHER SPECIFIED BACTERIAL INTESTINAL INFECTIONS Status: Acute Current Visit: Yes (6) Mood disorder SNOMED Code(s): 73268100 Code(s): F39 - UNSPECIFIED MOOD [AFFECTIVE] DISORDER Status: Chronic Current Visit: Yes - Problem List Review Problem List Initiated/Reviewed/Updated: Yes - My Orders Last 24 Hours: My Active Orders 10/14/17 12:00 Vancomycin [First-Vancomycin 25 Compounding Kit] 125 mg PO QID - Plan Plan:: This 37 year old female admitted with hypertriglyceridemia induced pancreatitis 1. Acute pancreatitis: likely hypertriglyceridemia induced. Continue IVFs for now. Triglycerides improving, 551 today. Continue Fish oil. Epigastric pain improved. Does not want diet yet, no appetite. 2. Cdiff Colitis: Reports she feels like stools are increasing along with abdominal cramping. Will add Vancomycin 125 mg po QID. Monitor stools. Strict I/ O 3. DM Type 2: Uncontrolled. Continue Novolog SSI and monitor BS Q6hr. Continue Lantus 20 units daily. 4. H pylori: Continue Flagyl and Protonix. Will add Clarithromycin 500 mg PO BID. 5. Mood disorder: Stable. Continue Effexor. VTE prophylaxis: Lovenox.
[2017-10-14] MEDS: Famotidine 20 MG/2 ML SDV IVPUSH SCH (20:47)
[2017-10-14] MEDS: Venlafaxine 75 MG Cap.ER PO SCH (21:06)
[2017-10-14] MEDS: Gabapentin 300 MG Cap PO SCH (21:06)
[2017-10-14] MEDS: hydrOXYzine HCl 25 MG Tab PO SCH (21:06)
[2017-10-14] MEDS: Enoxaparin 40 MG/0.4 ML Syringe SUBCUT SCH (23:27)
[2017-10-15] MEDS: Vancomycin 25 MG/ML Compounding Kit PO SCH ×5 (01:48→23:53)
[2017-10-15] MEDS: HYDROmorphone 2 MG/ML SDV IVPUSH PRN ×3 (01:55→18:17)
[2017-10-15] MEDS: Ondansetron 4 MG/2 ML SDV IVPUSH PRN ×3 (02:00→18:15)
[2017-10-15] MEDS: Insulin Aspart 100 Units/ML 3 ML Pen SUBCUT SCH ×3 (05:05→17:55)
[2017-10-15] MEDS: Sodium Chloride 0.9% 1,000 ML IV SCH ×3 (05:41→21:45)
[2017-10-15] MEDS: metroNIDAZOLE/Normal Saline 500 MG in Premix Bag 1 BAG IV SCH (05:46)
[2017-10-15 07:00] LABS: CHLORIDE,CL 104 mmol/L (98-107); SODIUM,NA 140 mmol/L (136-145)
[2017-10-15] MEDS ORDERED: Potassium Chloride 20 MEQ Tab.ER PO ONE ×2 (07:42→10:30)
[2017-10-15] MEDS ORDERED: Magnesium Sulfate/Water 2 GM in Premix Bag 1 BAG IV ONE (07:42)
--- NOTE | 2017-10-15 09:35 | PCM.PN ---
- General Info Date of Service: 10/15/17 Admission Dx/Problem (Free Text): Abdominal pain, pancreatitis, Cdiff positive Subjective Update: Feeling improved today, no BMs overnight. Abdominal pain is improving, scant pain to LLQ with palpation. Cramping is diminishing. No chest pain or SOB. Wants to take a shower today. Functional Status: Reports: Pain Controlled, Tolerating Diet, Ambulating, Urinating - Review of Systems General: Reports: No Symptoms. Denies: Fever, Weakness HEENT: Reports: No Symptoms. Denies: Headaches, Sore Throat, Visual Changes Pulmonary: Reports: No Symptoms. Denies: Shortness of Breath, Cough, Sputum Cardiovascular: Reports: No Symptoms. Denies: Chest Pain, Palpitations, Edema Gastrointestinal: Reports: Abdominal Pain (scant, very much improved), Diarrhea (none overnight). Denies: Nausea, Vomiting Genitourinary: Reports: No Symptoms. Denies: Dysuria, Frequency, Burning 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: Reports: No Symptoms Neurological: Reports: No Symptoms Psychiatric: Reports: No Symptoms - Patient Data Vitals - Most Recent: Last Vital Signs Temp 97.8 F 10/15/17 04:00 Pulse 75 10/15/17 04:00 Resp 16 10/15/17 04:00 BP 141/76 H 10/15/17 04:00 Pulse Ox 95 10/15/17 04:00 Weight - Most Recent: 100.425 kg I&O - Last 24 Hours: Intake & Output 10/14/17 10/15/17 10/15/17 22:59 06:59 14:59 Intake Total 1977 1200 Output Total 1000 1850 Balance 977 -650 Lab Results Last 24 Hours: Laboratory Results - last 24 hr 10/14/17 10/14/17 10/14/17 Range/Units 09:53 16:01 21:41 WBC (4.0-11.0) K/uL RBC (4.30-5.90) M/uL Hgb (12.0-16.0) g/dL Hct (36.0-46.0) % MCV (80.0-98.0) fL MCH (27.0-32.0) pg MCHC (31.0-37.0) g/dL RDW Std Deviation (28.0-62.0) fl RDW Coeff of Felix (11.0-15.0) % Plt Count (150-400) K/uL MPV (7.40-12.00) fL Neut % (Auto) (48.0-80.0) % Lymph % (Auto) (16.0-40.0) % Marinette % (Auto) (0.0-15.0) % Eos % (Auto) (0.0-7.0) % Baso % (Auto) (0.0-1.5) % Neut # (Auto) (1.4-5.7) K/uL Lymph # (Auto) (0.6-2.4) K/uL Marinette # (Auto) (0.0-0.8) K/uL Eos # (Auto) (0.0-0.7) K/uL Baso # (Auto) (0.0-0.1) K/uL Nucleated RBC % /100WBC Nucleated RBCs # K/uL Sodium (136-145) mmol/L Potassium (3.5-5.1) mmol/L Chloride (98-107) mmol/L Carbon Dioxide (21.0-32.0) mmol/L BUN (7.0-18.0) mg/dL Creatinine (0.6-1.0) mg/dL Est Cr Clr Drug Dosing mL/min Estimated GFR (MDRD) ml/min Glucose (74-106) mg/dL POC Glucose 168 H 128 H 142 H (60-110) mg/dL Calcium (8.5-10.1) mg/dL Magnesium (1.8-2.4) mg/dL Total Bilirubin (0.2-1.0) mg/dL AST (15-37) IU/L ALT (14-63) IU/L Alkaline Phosphatase (46-116) U/L Total Protein (6.4-8.2) g/dL Albumin (3.4-5.0) g/dL Globulin (2.0-3.5) g/dL Albumin/Globulin Ratio (1.3-2.8) Triglycerides (0-200) mg/dL 10/15/17 10/15/17 10/15/17 Range/Units 06:00 06:00 06:00 WBC 7.20 (4.0-11.0) K/uL RBC 3.82 L (4.30-5.90) M/uL Hgb 10.7 L (12.0-16.0) g/dL Hct 33.0 L (36.0-46.0) % MCV 86.4 (80.0-98.0) fL MCH 28.0 (27.0-32.0) pg MCHC 32.4 (31.0-37.0) g/dL RDW Std Deviation 43.0 (28.0-62.0) fl RDW Coeff of Felix 14 (11.0-15.0) % Plt Count 291 (150-400) K/uL MPV 9.70 (7.40-12.00) fL Neut % (Auto) 63.2 (48.0-80.0) % Lymph % (Auto) 23.9 (16.0-40.0) % [place] % (Auto) 7.4 (0.0-15.0) % Eos % (Auto) 4.9 (0.0-7.0) % Baso % (Auto) 0.6 (0.0-1.5) % Neut # (Auto) 4.6 (1.4-5.7) K/uL Lymph # (Auto) 1.7 (0.6-2.4) K/uL Marinette # (Auto) 0.5 (0.0-0.8) K/uL Eos # (Auto) 0.4 (0.0-0.7) K/uL Baso # (Auto) 0.0 (0.0-0.1) K/uL Nucleated RBC % 0.0 /100WBC Nucleated RBCs # 0 K/uL Sodium 140 (136-145) mmol/L Potassium 3.2 L (3.5-5.1) mmol/L Chloride 104 (98-107) mmol/L Carbon Dioxide 24.8 (21.0-32.0) mmol/L BUN 4 L (7.0-18.0) mg/dL Creatinine 0.7 (0.6-1.0) mg/dL Est Cr Clr Drug Dosing 81.42 mL/min Estimated GFR (MDRD) > 60.0 ml/min Glucose 151 H (74-106) mg/dL POC Glucose (60-110) mg/dL Calcium 8.3 L (8.5-10.1) mg/dL Magnesium 1.7 L (1.8-2.4) mg/dL Total Bilirubin 0.3 (0.2-1.0) mg/dL AST 108 H (15-37) IU/L ALT 42 (14-63) IU/L Alkaline Phosphatase 66 (46-116) U/L Total Protein 7.0 (6.4-8.2) g/dL Albumin 2.7 L (3.4-5.0) g/dL Globulin 4.3 H (2.0-3.5) g/dL Albumin/Globulin Ratio 0.6 L (1.3-2.8) Triglycerides 470 H (0-200) mg/dL Collin Results Last 24 Hours: Microbiology 10/13/17 04:22 Stool Culture - Final Stool / Feces NO SALMONELLA, SHIGELLA,OR E.COLI O157 ISOLATED Campylobacter Antigen Assay - Final NEGATIVE CAMPYLOBACTER AG - Final NEGATIVE FOR SHIGA TOXIN 1 - Final NEGATIVE FOR SHIGA TOXIN 2 10/13/17 04:16 Helicobacter pylori Antigen - Final Stool / Feces Med Orders - Current: Current Medications Albuterol/Ipratropium (Duoneb 3.0-0.5 Mg/3 Ml) 3 ml NEB Q4HRRT PRN PRN Reason: Shortness Of Breath/wheezing Cholecalciferol (Vitamin D3) 1,000 units PO DAILY [facility] Last Admin: 10/14/17 08:25 Dose: 1,000 units Clarithromycin (Biaxin) 500 mg PO BID [facility] Last Admin: 10/14/17 21:06 Dose: 500 mg Enoxaparin Sodium (Lovenox) 40 mg SUBCUT Q24H [facility] Last Admin: 10/14/17 23:27 Dose: 40 mg Famotidine (Pepcid) 20 mg IVPUSH BID [facility] Last Admin: 10/14/17 20:47 Dose: 20 mg Fish Oil (Fish Oil) 2 gm PO BID [facility] Last Admin: 10/14/17 21:05 Dose: 2 gm Gabapentin (Neurontin) 600 mg PO BEDTIME [facility] Last Admin: 10/14/17 21:06 Dose: 600 mg Hydromorphone HCl (Dilaudid) 2 mg IVPUSH Q4H PRN PRN Reason: Pain Last Admin: 10/15/17 01:55 Dose: 2 mg Hydroxyzine HCl (Atarax) 50 mg PO BEDTIME [facility] Last Admin: 10/14/17 21:06 Dose: 50 mg Metronidazole 500 mg/ Premix 100 mls @ 100 mls/hr IV QID [facility] Last Admin: 10/15/17 05:46 Dose: 100 mls/hr Insulin Aspart (Novolog) 0 unit SUBCUT Q6H [facility]; Protocol Last Admin: 10/15/17 05:05 Dose: Not Given Insulin Glargine (Lantus Solostar) 20 units SUBCUT DAILY [facility] Last Admin: 10/14/17 08:33 Dose: 20 units Lisinopril (Prinivil) 10 mg PO DAILY [facility] Last Admin: 10/14/17 08:24 Dose: 10 mg Magnesium Oxide (Magnesium Oxide) 400 mg PO DAILY [facility] Last Admin: 10/14/17 08:24 Dose: 400 mg Ondansetron HCl (Zofran) 4 mg IVPUSH Q4H PRN PRN Reason: Nausea Last Admin: 10/15/17 02:00 Dose: 4 mg Sodium Chloride (Saline Flush) 10 ml FLUSH ASDIRECTED PRN PRN Reason: Keep Vein Open Sodium Chloride (Saline Flush) 2.5 ml FLUSH ASDIRECTED PRN PRN Reason: Keep Vein Open Vancomycin HCl (First-Vancomycin 25 Compounding Kit) 125 mg PO QID [facility] Last Admin: 10/15/17 05:45 Dose: 125 mg Venlafaxine HCl (Effexor Xr) 225 mg PO BEDTIME [facility] Last Admin: 10/14/17 21:06 Dose: 225 mg Discontinued Medications Betamethasone/Clotrimazole (Lotrisone) 0 gm TOP BID [facility] Last Admin: 10/14/17 10:26 Dose: Not Given Al Hydroxide/Mg Hydroxide 15 ml/ Metoclopramide HCl 5 mg/Lidocaine HCl 5 ml 0 ml PO ONETIME ONE Stop: 10/11/17 17:32 Last Admin: 10/11/17 18:26 Dose: 25 each Diphtheria/Tetanus/Acell Pertussis (Adacel) 0.5 ml IM .ONCE ONE Stop: 10/11/17 18:48 Divalproex Sodium (Depakote) 500 mg PO BEDTIME [facility] Last Admin: 10/12/17 20:33 Dose: 500 mg Erythromycin (Erythromycin 0.5% Ophth Oint) 1 gm EYEBOTH ONETIME ONE Stop: 10/11/17 18:48 Last Admin: 10/12/17 01:25 Dose: Not Given Famotidine (Pepcid) 20 mg IVPUSH ONETIME ONE Stop: 10/11/17 19:18 Last Admin: 10/11/17 19:49 Dose: 20 mg Hydromorphone HCl (Dilaudid) 1 mg IVPUSH Q3H PRN PRN Reason: Pain Last Admin: 10/13/17 09:19 Dose: 1 mg Sodium Chloride (Normal Saline) 1,000 mls @ 999 mls/hr IV STAT ONE Stop: 10/11/17 18:29 Last Admin: 10/11/17 18:30 Dose: 999 mls/hr Sodium Chloride (Normal Saline) 1,000 mls @ 150 mls/hr IV STAT ONE Stop: 10/12/17 02:09 Last Admin: 10/11/17 19:53 Dose: 999 mls/hr Pantoprazole Sodium 80 mg/ (Sodium Chloride) 100 mls @ 10 mls/hr IV .Continuous [facility] Last Admin: 10/12/17 05:28 Dose: 10 mls/hr Lactated Ringer's (Ringers, Lactated) 1,000 mls @ 200 mls/hr IV ASDIRECTED [facility] Sodium Chloride (Normal Saline) 1,000 mls @ 200 mls/hr IV ASDIRECTED [facility] Last Admin: 10/15/17 05:41 Dose: 200 mls/hr Magnesium Sulfate 2 gm/ Premix 50 mls @ 50 mls/hr IV ONETIME ONE Stop: 10/15/17 08:41 Insulin Glargine (Lantus Solostar) 10 units SUBCUT DAILY [facility] Last Admin: 10/13/17 09:39 Dose: 10 units Insulin Glargine (Lantus Solostar) 10 units SUBCUT DAILY ONE Stop: 10/13/17 13:01 Last Admin: 10/13/17 14:11 Dose: 10 units Iopamidol (Isovue Multipack-370 (76%)) 100 ml IVPUSH ONETIME STA Stop: 10/11/17 18:52 Last Admin: 10/11/17 18:52 Dose: 100 ml Lisinopril (Prinivil) 10 mg PO DAILY [facility] Metronidazole (Metronidazole) 500 mg PO Q8H [facility] Last Admin: 10/13/17 10:33 Dose: Not Given Morphine Sulfate (Morphine) 4 mg IVPUSH ONETIME ONE Stop: 10/11/17 19:18 Last Admin: 10/11/17 19:58 Dose: Not Given Morphine Sulfate (Morphine) 4 mg IVPUSH ONETIME ONE Stop: 10/11/17 19:56 Last Admin: 10/11/17 20:00 Dose: 4 mg Ondansetron HCl (Zofran) 4 mg IVPUSH ONETIME ONE Stop: 10/11/17 17:32 Last Admin: 10/11/17 18:28 Dose: 4 mg Pantoprazole Sodium (Protonix Iv) 40 mg IV Q12H [facility] Last Admin: 10/14/17 08:25 Dose: 40 mg Potassium Chloride (Klor-Con M20) 40 meq PO ONETIME ONE Stop: 10/15/17 07:43 Venlafaxine HCl (Effexor Xr) 225 mg PO ONETIME ONE Stop: 10/11/17 23:01 Last Admin: 10/11/17 22:46 Dose: 225 mg - Exam General: Alert, Oriented, Cooperative, No Acute Distress Neck: Supple Lungs: Clear to Auscultation, Normal Respiratory Effort Cardiovascular: Regular Rate, Regular Rhythm, No Murmurs GI/Abdominal Exam: Normal Bowel Sounds, Soft, No Distention, Tender (scant tenderness to LLQ, improving daily.) Extremities: Normal Inspection, Normal Range of Motion, Non-Tender, No Pedal Edema Neurological: No New Focal Deficit Psy/Mental Status: Alert, Normal Affect, Normal Mood - Problem List & Annotations (1) Pancreatitis SNOMED Code(s): 69558208 Code(s): K85.90 - ACUTE PANCREATITIS WITHOUT NECROSIS OR INFECTION, UNSP Status: Acute Current Visit: Yes Qualifiers: Chronicity: acute Pancreatitis type: unspecified pancreatitis type Acute pancreatitis complication: unspecified Qualified Code(s): K85.90 - Acute pancreatitis without necrosis or infection, unspecified (2) C. difficile diarrhea SNOMED Code(s): 7746448229292 Code(s): A04.72 - ENTEROCOLITIS D/T CLOSTRIDIUM DIFFICILE, NOT SPCF RECUR Status: Acute Current Visit: Yes (3) Abdominal pain SNOMED Code(s): 20132694 Code(s): R10.9 - UNSPECIFIED ABDOMINAL PAIN Status: Acute Current Visit: No Qualifiers: Abdominal location: generalized Qualified Code(s): R10.84 - Generalized abdominal pain (4) Diabetes mellitus type 2, uncontrolled SNOMED Code(s): 19779562, 816912438 Code(s): E11.65 - TYPE 2 DIABETES MELLITUS WITH HYPERGLYCEMIA Status: Acute Current Visit: Yes Qualifiers: Diabetes mellitus joint terminal attack controller insulin use: without assisted use Diabetes mellitus complication status: without complication Qualified Code(s): E11.65 - Type 2 diabetes mellitus with hyperglycemia (5) Helicobacter pylori (H. pylori) infection SNOMED Code(s): 689013419 Code(s): A04.8 - OTHER SPECIFIED BACTERIAL INTESTINAL INFECTIONS Status: Acute Current Visit: Yes (6) Mood disorder SNOMED Code(s): 61669990 Code(s): F39 - UNSPECIFIED MOOD [AFFECTIVE] DISORDER Status: Chronic Current Visit: Yes - Problem List Review Problem List Initiated/Reviewed/Updated: Yes - My Orders Last 24 Hours: My Active Orders 10/14/17 12:00 Vancomycin [First-Vancomycin 25 Compounding Kit] 125 mg PO QID 10/14/17 21:00 Clarithromycin [Biaxin] 500 mg PO BID 10/15/17 09:34 May Shower [RC] ASDIRECTED Sodium Chloride 0.9% [Normal Saline] 1,000 ml IV ASDIRECTED 10/15/17 Breakfast Clear Liquid Diet [DIET] - Plan Plan:: This 37 year old female admitted with hypertriglyceridemia induced pancreatitis 1. Acute pancreatitis: likely hypertriglyceridemia induced. Triglycerides improving,470 today. Continue Fish oil. No further epigastric pain improved. Eager to advance diet today. 2. Cdiff Colitis: No stools overnight. Continue Vancomycin 125 mg po QID. Monitor stools. Strict I/O 3. DM Type 2: Uncontrolled. Continue Novolog SSI and monitor BS Q6hr. Continue Lantus 20 units daily. Monitor as diet increases 4. H pylori: Continue Flagyl, Protonix, Clarithromycin 500 mg PO BID. Change Flagyl to PO 5. Mood disorder: Stable. Continue Effexor. VTE prophylaxis: Lovenox. Dispo: 1-2 days pending tolerance of diet.
[2017-10-15] MEDS: Famotidine 20 MG/2 ML SDV IVPUSH SCH (10:25)
[2017-10-15] MEDS: Lisinopril 10 MG Tab PO SCH (10:27)
[2017-10-15] MEDS: Cholecalciferol (Vitamin D3) 1,000 Unit Tab PO SCH (10:27)
[2017-10-15] MEDS: Fish Oil/Omega-3 Fatty Acids 1 Gm Cap PO SCH ×2 (10:27→21:49)
[2017-10-15] MEDS: Magnesium Oxide 400 MG Tab PO SCH (10:27)
[2017-10-15] MEDS: Insulin Glargine,Human Rec. Analog 100 Units/ML 3 ML Pen SUBCUT SCH (10:38)
[2017-10-15] MEDS: metroNIDAZOLE 250 MG Tab PO SCH ×2 (13:15→21:50)
[2017-10-15] MEDS: Pantoprazole 40 MG Tab.CR PO SCH (18:00)
[2017-10-15] MEDS: Gabapentin 300 MG Cap PO SCH (21:46)
[2017-10-15] MEDS: hydrOXYzine HCl 25 MG Tab PO SCH (21:46)
[2017-10-15] MEDS: Venlafaxine 75 MG Cap.ER PO SCH (21:49)
[2017-10-15] MEDS: Enoxaparin 40 MG/0.4 ML Syringe SUBCUT SCH (21:51)
[2017-10-16] MEDS: Ondansetron 4 MG/2 ML SDV IVPUSH PRN (01:16)
[2017-10-16] MEDS: HYDROmorphone 2 MG/ML SDV IVPUSH PRN (01:16)
[2017-10-16 05:58] LABS: CHLORIDE,CL 103 mmol/L (98-107); SODIUM,NA 138 mmol/L (136-145)
[2017-10-16] MEDS: metroNIDAZOLE 250 MG Tab PO SCH ×2 (06:35→15:00)
[2017-10-16] MEDS: Vancomycin 25 MG/ML Compounding Kit PO SCH ×2 (06:35→11:44)
[2017-10-16] MEDS: Pantoprazole 40 MG Tab.CR PO SCH (06:35)
[2017-10-16] MEDS: Insulin Aspart 100 Units/ML 3 ML Pen SUBCUT SCH ×2 (06:37→11:44)
[2017-10-16] MEDS: Sodium Chloride 0.9% 1,000 ML IV SCH (07:41)
[2017-10-16] MEDS ORDERED: Potassium Chloride 20 MEQ Tab.ER PO ONE (07:57)
--- NOTE | 2017-10-16 09:51 | PCM.PN ---
- General Info Date of Service: 10/16/17 Admission Dx/Problem (Free Text): Abdominal pain, pancreatitis, Cdiff positive Subjective Update: Feeling improved today, having some loose BMs. Tolerating CL diet, no nausea Functional Status: Reports: Pain Controlled, Tolerating Diet, Ambulating, Urinating - Review of Systems General: Reports: No Symptoms. Denies: Fever, Weakness, Fatigue HEENT: Reports: No Symptoms. Denies: Headaches, Sore Throat, Visual Changes Pulmonary: Reports: No Symptoms. Denies: Shortness of Breath Cardiovascular: Reports: No Symptoms. Denies: Chest Pain Gastrointestinal: Reports: Diarrhea. Denies: Abdominal Pain, Nausea, Vomiting Genitourinary: Reports: No Symptoms. Denies: Dysuria, Frequency, Burning 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: Reports: No Symptoms Neurological: Reports: No Symptoms Psychiatric: Reports: No Symptoms - Patient Data Vitals - Most Recent: Last Vital Signs Temp 96.2 F 10/16/17 07:42 Pulse 64 10/16/17 07:42 Resp 16 10/16/17 07:42 BP 134/77 10/16/17 07:42 Pulse Ox 96 10/16/17 07:42 Weight - Most Recent: 100.425 kg I&O - Last 24 Hours: Intake & Output 10/15/17 10/16/17 10/16/17 22:59 06:59 14:59 Intake Total 2877 2140 Output Total 1900 1800 Balance 977 340 Lab Results Last 24 Hours: Laboratory Results - last 24 hr 10/15/17 10/15/17 10/15/17 Range/Units 04:59 10:31 16:26 WBC (4.0-11.0) K/uL RBC (4.30-5.90) M/uL Hgb (12.0-16.0) g/dL Hct (36.0-46.0) % MCV (80.0-98.0) fL MCH (27.0-32.0) pg MCHC (31.0-37.0) g/dL RDW Std Deviation (28.0-62.0) fl RDW Coeff of Felix (11.0-15.0) % Plt Count (150-400) K/uL MPV (7.40-12.00) fL Neut % (Auto) (48.0-80.0) % Lymph % (Auto) (16.0-40.0) % Bent % (Auto) (0.0-15.0) % Eos % (Auto) (0.0-7.0) % Baso % (Auto) (0.0-1.5) % Neut # (Auto) (1.4-5.7) K/uL Lymph # (Auto) (0.6-2.4) K/uL Bent # (Auto) (0.0-0.8) K/uL Eos # (Auto) (0.0-0.7) K/uL Baso # (Auto) (0.0-0.1) K/uL Nucleated RBC % /100WBC Nucleated RBCs # K/uL Sodium (136-145) mmol/L Potassium (3.5-5.1) mmol/L Chloride (98-107) mmol/L Carbon Dioxide (21.0-32.0) mmol/L BUN (7.0-18.0) mg/dL Creatinine (0.6-1.0) mg/dL Est Cr Clr Drug Dosing mL/min Estimated GFR (MDRD) ml/min Glucose (74-106) mg/dL POC Glucose 138 H 170 H 139 H (60-110) mg/dL Calcium (8.5-10.1) mg/dL Magnesium (1.8-2.4) mg/dL 10/15/17 10/16/17 10/16/17 Range/Units 17:58 05:18 05:18 WBC 6.26 (4.0-11.0) K/uL RBC 3.78 L (4.30-5.90) M/uL Hgb 10.5 L (12.0-16.0) g/dL Hct 32.6 L (36.0-46.0) % MCV 86.2 (80.0-98.0) fL MCH 27.8 (27.0-32.0) pg MCHC 32.2 (31.0-37.0) g/dL RDW Std Deviation 42.4 (28.0-62.0) fl RDW Coeff of Felix 14 (11.0-15.0) % Plt Count 282 (150-400) K/uL MPV 9.40 (7.40-12.00) fL Neut % (Auto) 57.1 (48.0-80.0) % Lymph % (Auto) 28.8 (16.0-40.0) % Bent % (Auto) 8.8 (0.0-15.0) % Eos % (Auto) 4.5 (0.0-7.0) % Baso % (Auto) 0.8 (0.0-1.5) % Neut # (Auto) 3.6 (1.4-5.7) K/uL Lymph # (Auto) 1.8 (0.6-2.4) K/uL Bent # (Auto) 0.6 (0.0-0.8) K/uL Eos # (Auto) 0.3 (0.0-0.7) K/uL Baso # (Auto) 0.1 (0.0-0.1) K/uL Nucleated RBC % 0.0 /100WBC Nucleated RBCs # 0 K/uL Sodium 138 (136-145) mmol/L Potassium 3.2 L (3.5-5.1) mmol/L Chloride 103 (98-107) mmol/L Carbon Dioxide 24.6 (21.0-32.0) mmol/L BUN 3 L (7.0-18.0) mg/dL Creatinine 0.7 (0.6-1.0) mg/dL Est Cr Clr Drug Dosing 81.42 mL/min Estimated GFR (MDRD) > 60.0 ml/min Glucose 169 H (74-106) mg/dL POC Glucose 160 H (60-110) mg/dL Calcium 8.5 (8.5-10.1) mg/dL Magnesium 1.8 (1.8-2.4) mg/dL 10/16/17 Range/Units 06:20 WBC (4.0-11.0) K/uL RBC (4.30-5.90) M/uL Hgb (12.0-16.0) g/dL Hct (36.0-46.0) % MCV (80.0-98.0) fL MCH (27.0-32.0) pg MCHC (31.0-37.0) g/dL RDW Std Deviation (28.0-62.0) fl RDW Coeff of Felix (11.0-15.0) % Plt Count (150-400) K/uL MPV (7.40-12.00) fL Neut % (Auto) (48.0-80.0) % Lymph % (Auto) (16.0-40.0) % Bent % (Auto) (0.0-15.0) % Eos % (Auto) (0.0-7.0) % Baso % (Auto) (0.0-1.5) % Neut # (Auto) (1.4-5.7) K/uL Lymph # (Auto) (0.6-2.4) K/uL Bent # (Auto) (0.0-0.8) K/uL Eos # (Auto) (0.0-0.7) K/uL Baso # (Auto) (0.0-0.1) K/uL Nucleated RBC % /100WBC Nucleated RBCs # K/uL Sodium (136-145) mmol/L Potassium (3.5-5.1) mmol/L Chloride (98-107) mmol/L Carbon Dioxide (21.0-32.0) mmol/L BUN (7.0-18.0) mg/dL Creatinine (0.6-1.0) mg/dL Est Cr Clr Drug Dosing mL/min Estimated GFR (MDRD) ml/min Glucose (74-106) mg/dL POC Glucose 155 H (60-110) mg/dL Calcium (8.5-10.1) mg/dL Magnesium (1.8-2.4) mg/dL Collin Results Last 24 Hours: Microbiology 10/13/17 04:22 Stool Culture - Final Stool / Feces NO SALMONELLA, SHIGELLA,OR E.COLI O157 ISOLATED Campylobacter Antigen Assay - Final NEGATIVE CAMPYLOBACTER AG - Final NEGATIVE FOR SHIGA TOXIN 1 - Final NEGATIVE FOR SHIGA TOXIN 2 Med Orders - Current: Current Medications Albuterol/Ipratropium (Duoneb 3.0-0.5 Mg/3 Ml) 3 ml NEB Q4HRRT PRN PRN Reason: Shortness Of Breath/wheezing Cholecalciferol (Vitamin D3) 1,000 units PO DAILY [facility] Last Admin: 10/15/17 10:27 Dose: 1,000 units Clarithromycin (Biaxin) 500 mg PO BID [facility] Last Admin: 10/15/17 21:46 Dose: 500 mg Enoxaparin Sodium (Lovenox) 40 mg SUBCUT Q24H [facility] Last Admin: 10/15/17 21:51 Dose: 40 mg Fish Oil (Fish Oil) 2 gm PO BID [facility] Last Admin: 10/15/17 21:49 Dose: 2 gm Gabapentin (Neurontin) 600 mg PO BEDTIME [facility] Last Admin: 10/15/17 21:46 Dose: 600 mg Hydromorphone HCl (Dilaudid) 2 mg IVPUSH Q4H PRN PRN Reason: Pain Last Admin: 10/16/17 01:16 Dose: 2 mg Hydroxyzine HCl (Atarax) 50 mg PO BEDTIME [facility] Last Admin: 10/15/17 21:46 Dose: 50 mg Sodium Chloride (Normal Saline) 1,000 mls @ 100 mls/hr IV ASDIRECTED [facility] Last Admin: 10/16/17 07:41 Dose: 100 mls/hr Insulin Aspart (Novolog) 0 unit SUBCUT TIDAC [facility]; Protocol Last Admin: 10/16/17 06:37 Dose: 2 units Insulin Glargine (Lantus Solostar) 20 units SUBCUT DAILY [facility] Last Admin: 10/15/17 10:38 Dose: 20 units Lisinopril (Prinivil) 10 mg PO DAILY [facility] Last Admin: 10/15/17 10:27 Dose: 10 mg Magnesium Oxide (Magnesium Oxide) 400 mg PO DAILY [facility] Last Admin: 10/15/17 10:27 Dose: 400 mg Metronidazole (Metronidazole) 500 mg PO Q8H [facility] Last Admin: 10/16/17 06:35 Dose: 500 mg Ondansetron HCl (Zofran) 4 mg IVPUSH Q4H PRN PRN Reason: Nausea Last Admin: 10/16/17 01:16 Dose: 4 mg Pantoprazole Sodium (Protonix) 40 mg PO BIDAC [facility] Last Admin: 10/16/17 06:35 Dose: 40 mg Sodium Chloride (Saline Flush) 10 ml FLUSH ASDIRECTED PRN PRN Reason: Keep Vein Open Sodium Chloride (Saline Flush) 2.5 ml FLUSH ASDIRECTED PRN PRN Reason: Keep Vein Open Vancomycin HCl (First-Vancomycin 25 Compounding Kit) 125 mg PO QID [facility] Last Admin: 10/16/17 06:35 Dose: 125 mg Venlafaxine HCl (Effexor Xr) 225 mg PO BEDTIME [facility] Last Admin: 10/15/17 21:49 Dose: 225 mg Discontinued Medications Betamethasone/Clotrimazole (Lotrisone) 0 gm TOP BID [facility] Last Admin: 10/14/17 10:26 Dose: Not Given Al Hydroxide/Mg Hydroxide 15 ml/ Metoclopramide HCl 5 mg/Lidocaine HCl 5 ml 0 ml PO ONETIME ONE Stop: 10/11/17 17:32 Last Admin: 10/11/17 18:26 Dose: 25 each Diphtheria/Tetanus/Acell Pertussis (Adacel) 0.5 ml IM .ONCE ONE Stop: 10/11/17 18:48 Last Admin: 10/15/17 11:39 Dose: Not Given Divalproex Sodium (Depakote) 500 mg PO BEDTIME [facility] Last Admin: 10/12/17 20:33 Dose: 500 mg Erythromycin (Erythromycin 0.5% Ophth Oint) 1 gm EYEBOTH ONETIME ONE Stop: 10/11/17 18:48 Last Admin: 10/12/17 01:25 Dose: Not Given Famotidine (Pepcid) 20 mg IVPUSH ONETIME ONE Stop: 10/11/17 19:18 Last Admin: 10/11/17 19:49 Dose: 20 mg Famotidine (Pepcid) 20 mg IVPUSH BID [facility] Last Admin: 10/15/17 10:25 Dose: Not Given Hydromorphone HCl (Dilaudid) 1 mg IVPUSH Q3H PRN PRN Reason: Pain Last Admin: 10/13/17 09:19 Dose: 1 mg Sodium Chloride (Normal Saline) 1,000 mls @ 999 mls/hr IV STAT ONE Stop: 10/11/17 18:29 Last Admin: 10/11/17 18:30 Dose: 999 mls/hr Sodium Chloride (Normal Saline) 1,000 mls @ 150 mls/hr IV STAT ONE Stop: 10/12/17 02:09 Last Admin: 10/11/17 19:53 Dose: 999 mls/hr Pantoprazole Sodium 80 mg/ (Sodium Chloride) 100 mls @ 10 mls/hr IV .Continuous [facility] Last Admin: 10/12/17 05:28 Dose: 10 mls/hr Lactated Ringer's (Ringers, Lactated) 1,000 mls @ 200 mls/hr IV ASDIRECTED [facility] Sodium Chloride (Normal Saline) 1,000 mls @ 200 mls/hr IV ASDIRECTED [facility] Last Admin: 10/15/17 05:41 Dose: 200 mls/hr Metronidazole 500 mg/ Premix 100 mls @ 100 mls/hr IV QID [facility] Last Admin: 10/15/17 05:46 Dose: 100 mls/hr Magnesium Sulfate 2 gm/ Premix 50 mls @ 50 mls/hr IV ONETIME ONE Stop: 10/15/17 08:41 Last Admin: 10/15/17 10:20 Dose: 50 mls/hr Insulin Aspart (Novolog) 0 unit SUBCUT Q6H [facility]; Protocol Last Admin: 10/15/17 05:05 Dose: Not Given Insulin Glargine (Lantus Solostar) 10 units SUBCUT DAILY [facility] Last Admin: 10/13/17 09:39 Dose: 10 units Insulin Glargine (Lantus Solostar) 10 units SUBCUT DAILY ONE Stop: 10/13/17 13:01 Last Admin: 10/13/17 14:11 Dose: 10 units Iopamidol (Isovue Multipack-370 (76%)) 100 ml IVPUSH ONETIME STA Stop: 10/11/17 18:52 Last Admin: 10/11/17 18:52 Dose: 100 ml Lisinopril (Prinivil) 10 mg PO DAILY [facility] Metronidazole (Metronidazole) 500 mg PO Q8H [facility] Last Admin: 10/13/17 10:33 Dose: Not Given Morphine Sulfate (Morphine) 4 mg IVPUSH ONETIME ONE Stop: 10/11/17 19:18 Last Admin: 10/11/17 19:58 Dose: Not Given Morphine Sulfate (Morphine) 4 mg IVPUSH ONETIME ONE Stop: 10/11/17 19:56 Last Admin: 10/11/17 20:00 Dose: 4 mg Ondansetron HCl (Zofran) 4 mg IVPUSH ONETIME ONE Stop: 10/11/17 17:32 Last Admin: 10/11/17 18:28 Dose: 4 mg Pantoprazole Sodium (Protonix Iv) 40 mg IV Q12H [facility] Last Admin: 10/14/17 08:25 Dose: 40 mg Potassium Chloride (Klor-Con M20) 40 meq PO ONETIME ONE Stop: 10/15/17 07:43 Last Admin: 10/15/17 10:25 Dose: Not Given Potassium Chloride (Klor-Con M20) 40 meq PO ONETIME ONE Stop: 10/15/17 10:31 Last Admin: 10/15/17 10:29 Dose: 40 meq Potassium Chloride (Klor-Con M20) 40 meq PO ONETIME ONE Stop: 10/16/17 07:58 Venlafaxine HCl (Effexor Xr) 225 mg PO ONETIME ONE Stop: 10/11/17 23:01 Last Admin: 10/11/17 22:46 Dose: 225 mg - Exam General: Alert, Oriented, Cooperative, No Acute Distress Neck: Supple Lungs: Clear to Auscultation, Normal Respiratory Effort Cardiovascular: Regular Rate, Regular Rhythm GI/Abdominal Exam: Normal Bowel Sounds, Soft, Non-Tender Extremities: Normal Inspection, Normal Range of Motion, Non-Tender Neurological: No New Focal Deficit Psy/Mental Status: Alert, Normal Affect, Normal Mood - Problem List & Annotations (1) Pancreatitis SNOMED Code(s): 03751532 Code(s): K85.90 - ACUTE PANCREATITIS WITHOUT NECROSIS OR INFECTION, UNSP Status: Acute Current Visit: Yes Qualifiers: Chronicity: acute Pancreatitis type: unspecified pancreatitis type Acute pancreatitis complication: unspecified Qualified Code(s): K85.90 - Acute pancreatitis without necrosis or infection, unspecified (2) C. difficile diarrhea SNOMED Code(s): 0747144987827 Code(s): A04.72 - ENTEROCOLITIS D/T CLOSTRIDIUM DIFFICILE, NOT SPCF RECUR Status: Acute Current Visit: Yes (3) Abdominal pain SNOMED Code(s): 00752960 Code(s): R10.9 - UNSPECIFIED ABDOMINAL PAIN Status: Acute Current Visit: No Qualifiers: Abdominal location: generalized Qualified Code(s): R10.84 - Generalized abdominal pain (4) Diabetes mellitus type 2, uncontrolled SNOMED Code(s): 73178327, 565644667 Code(s): E11.65 - TYPE 2 DIABETES MELLITUS WITH HYPERGLYCEMIA Status: Acute Current Visit: Yes Qualifiers: Diabetes mellitus termite control representative insulin use: without termite control representative use Diabetes mellitus complication status: without complication Qualified Code(s): E11.65 - Type 2 diabetes mellitus with hyperglycemia (5) Helicobacter pylori (H. pylori) infection SNOMED Code(s): 131286120 Code(s): A04.8 - OTHER SPECIFIED BACTERIAL INTESTINAL INFECTIONS Status: Acute Current Visit: Yes (6) Mood disorder SNOMED Code(s): 88680513 Code(s): F39 - UNSPECIFIED MOOD [AFFECTIVE] DISORDER Status: Chronic Current Visit: Yes - Problem List Review Problem List Initiated/Reviewed/Updated: Yes - My Orders Last 24 Hours: My Active Orders 10/15/17 09:34 May Shower [RC] ASDIRECTED Sodium Chloride 0.9% [Normal Saline] 1,000 ml IV ASDIRECTED 10/15/17 10:13 Blood Glucose Check, Bedside [RC] TIDAC 10/15/17 11:30 Insulin Aspart [NovoLOG] See Protocol SUBCUT TIDAC 10/15/17 14:00 metroNIDAZOLE 500 mg PO Q8H 10/15/17 17:00 Pantoprazole [ProTONIX] 40 mg PO BIDAC 10/16/17 Breakfast Full Liquid Diet [DIET] - Plan Plan:: This 37 year old female admitted with hypertriglyceridemia induced pancreatitis 1. Acute pancreatitis: likely hypertriglyceridemia induced. Triglycerides improving. Continue Fish oil. No further epigastric pain or abdominal pain 2. Cdiff Colitis: Having 3-4 stools overnight. Increase dietto BRAT diet. Continue Vancomycin 125 mg po QID. Monitor stools. Strict I/O 3. DM Type 2: Uncontrolled. Continue Novolog SSI and monitor BS TIDAC. Increase Lantus to 22 units daily. Monitor as diet increases. Will have DM educator speak with her again today regarding lantus dosing and administration. 4. H pylori: Continue Flagyl, Protonix, Clarithromycin 500 mg PO BID. Change Flagyl to PO 5. Mood disorder: Stable. Continue Effexor. VTE prophylaxis: Lovenox. Dispo: 1-2 days pending tolerance of diet.
[2017-10-16] MEDS: Cholecalciferol (Vitamin D3) 1,000 Unit Tab PO SCH (10:22)
[2017-10-16] MEDS: Magnesium Oxide 400 MG Tab PO SCH (10:22)
[2017-10-16] MEDS: Insulin Glargine,Human Rec. Analog 100 Units/ML 3 ML Pen SUBCUT SCH (10:22)
[2017-10-16] MEDS: Fish Oil/Omega-3 Fatty Acids 1 Gm Cap PO SCH (10:22)
[2017-10-16] MEDS: Lisinopril 10 MG Tab PO SCH (10:22)
[2017-10-16 12:11] VITALS: BP 132/78
--- NOTE | 2017-10-16 14:26 | PCM.DCSUM1 ---
Discharge Summary - Hospital Course Brief History: This 37 year old female presented to the ED due to epigastric pain that was radiating to her back and across abdomen. The pain was severe and stabbing in nature. She denies alcohol use and reports her cholesterol is controlled. She also reports diarrhea for 1 day a few a day. In the ED leukocytosis noted, BMP normal, glucose noted to be elevated in 300s, A1c 11.5. Triglycerides 1058 ad lipase 352. She also had CT of abdomen which revealed inflammaotry change around the pancreatic tail compatible with acute pancreatitis, 1 cm hypodense mass vs small area of pancreatic necrosis in the pancreatic tail in the chase of inflammatory change. Fatty infiltration of the liver, non-obstructing left renal calculus. Diagnosis: Stroke: No - Discharge Data Discharge Date: 10/16/17 Discharge Disposition: Home, Self-Care 01 Condition: Stable - Discharge Diagnosis/Problem(s) (1) Pancreatitis SNOMED Code(s): 42464301 ICD Code: K85.90 - ACUTE PANCREATITIS WITHOUT NECROSIS OR INFECTION, UNSP Status: Acute Current Visit: Yes Qualifiers: Chronicity: acute Pancreatitis type: unspecified pancreatitis type Acute pancreatitis complication: unspecified Qualified Code(s): K85.90 - Acute pancreatitis without necrosis or infection, unspecified (2) C. difficile diarrhea SNOMED Code(s): 3072996327913 ICD Code: A04.72 - ENTEROCOLITIS D/T CLOSTRIDIUM DIFFICILE, NOT SPCF RECUR Status: Acute Current Visit: Yes (3) Abdominal pain SNOMED Code(s): 85281040 ICD Code: R10.9 - UNSPECIFIED ABDOMINAL PAIN Status: Acute Current Visit : No Qualifiers: Abdominal location: generalized Qualified Code(s): R10.84 - Generalized abdominal pain (4) Diabetes mellitus type 2, uncontrolled SNOMED Code(s): 54416199, 265330252 ICD Code: E11.65 - TYPE 2 DIABETES MELLITUS WITH HYPERGLYCEMIA Status: Acute Current Visit: Yes Qualifiers: Diabetes mellitus medical terminologist insulin use: without medical terminologist use Diabetes mellitus complication status: without complication Qualified Code(s): E11.65 - Type 2 diabetes mellitus with hyperglycemia (5) Helicobacter pylori (H. pylori) infection SNOMED Code(s): 317458111 ICD Code: A04.8 - OTHER SPECIFIED BACTERIAL INTESTINAL INFECTIONS Status: Acute Current Visit: Yes (6) Mood disorder SNOMED Code(s): 13219105 ICD Code: F39 - UNSPECIFIED MOOD [AFFECTIVE] DISORDER Status: Chronic Current Visit: Yes - Patient Summary/Data Consults: Consultations 10/13/17 12:50 Consult to Cloth Printing Utility Worker [Consult to Diabetic Nurse Specialist] [CONS] Routine - Patient Instructions Diet: Diabetic Diet Activity: As Tolerated Showering/Bathing: May Shower Notify Provider of: Fever, Increased Pain, Nausea and/or Vomiting Other/Special Instructions: Stop taking Onglyza and Valproic acid due to risk of pancreatitis. - Discharge Plan *PRESCRIPTION DRUG MONITORING PROGRAM REVIEWED*: Not Applicable *COPY OF PRESCRIPTION DRUG MONITORING REPORT IN PATIENT GRETA: Not Applicable Prescriptions/Med Rec: Clarithromycin [Biaxin] 500 mg PO BID #24 tablet Fish Oil/Nada-3 Fatty Acids [Fish Oil 1,000 MG] 2 gm PO BID #60 cap Insulin Aspart [NovoLOG] See Protocol SUBCUT TIDAC #1 box Insulin Glarg,Human.Rec.Analog [Lantus Solostar] 22 units SUBCUT DAILY #1 box metroNIDAZOLE [Flagyl] 500 mg PO Q8H #36 tab Pantoprazole [ProTONIX] 40 mg PO BIDAC #24 tab.cr Pen Needle, Diabetic [1St Tier Unifine Pentips] 1 each TIDAC #1 box Vancomycin [First-Vancomycin 25 Compounding Kit] 125 mg PO QID #180 ml Home Medications: Home Meds Venlafaxine [Effexor XR] 150 mg PO BEDTIME 12/30/14 [History] Lisinopril 1 tab PO DAILY 06/11/16 [History] Magnesium 250 mg PO DAILY 03/25/17 [History] Cholecalciferol (Vitamin D3) [Vitamin D3] 1 tab PO DAILY 04/07/17 [History] Cyanocobalamin (Vitamin B-12) [Vitamin B-12] 50 mcg PO DAILY 04/07/17 [History] Gabapentin [Neurontin] 2 tab PO BEDTIME 04/07/17 [History] L.acidoph,Paracasei, B.lactis [Probiotic] 1 tab PO BEDTIME 04/07/17 [History] Loratadine [Claritin] 10 mg PO DAILY 04/07/17 [History] PNV95/Ferrous Fumarate/FA [ Vitamin Tablet] 1 tab PO BEDTIME 04/07/17 [ History] Sucralfate 1 gm PO BID 04/07/17 [History] Allopurinol [Zyloprim] 0 mg PO DAILY 10/11/17 [History] Cyanocobalamin (Vitamin B-12) [Vitamin B-12] 500 mcg PO DAILY 10/11/17 [History] Cyanocobalamin (Vitamin B-12) [Vitamin B-12] 500 mcg PO DAILY 10/11/17 [History] Hydrochlorothiazide [Microzide] 0 mg PO DAILY 10/11/17 [History] Potassium Citrate Monohydrate [Potassium Citrate] 0 mg PO DAILY 10/11/17 [ History] Tamsulosin [Flomax] 0.4 mg PO BEDTIME 10/11/17 [History] Venlafaxine [Effexor XR] 75 mg PO BEDTIME 10/11/17 [History] hydrOXYzine HCl [hydrOXYzine] 50 mg PO BEDTIME 10/11/17 [History] Clarithromycin [Biaxin] 500 mg PO BID #24 tablet 10/16/17 [Rx] Fish Oil/Nada-3 Fatty Acids [Fish Oil 1,000 MG] 2 gm PO BID #60 cap 10/16/17 [ Rx] Insulin Aspart [NovoLOG] See Protocol SUBCUT TIDAC #1 box 10/16/17 [Rx] Insulin Glarg,Human.Rec.Analog [Lantus Solostar] 22 units SUBCUT DAILY #1 box [Rx] Pantoprazole [ProTONIX] 40 mg PO BIDAC #24 tab.cr 10/16/17 [Rx] Pen Needle, Diabetic [1St Tier Unifine Pentips] 1 each TIDAC #1 box 10/16/17 [Rx] Vancomycin [First-Vancomycin 25 Compounding Kit] 125 mg PO QID #180 ml 10/16/17 [Rx] metroNIDAZOLE [Flagyl] 500 mg PO Q8H #36 tab 10/16/17 [Rx] Patient Handouts: Type 2 Diabetes Mellitus, Diagnosis, Adult, Acute Pancreatitis, [id number], Helicobacter Pylori Infection, Clostridium Difficile Infection, Pantoprazole tablets, Vancomycin oral solution, High Triglycerides Eating Plan, Clarithromycin tablets, Insulin Glargine injection, Metronidazole tablets or capsules, Fish Oil, Nada-3 Fatty Acids capsules (Rx) Referrals: Maria Teresa Elias MD [Primary Care Provider] - 10/23/17 10:00 am - Discharge Summary/Plan Comment DC Time >30 min.: No Discharge Summary/Plan Comment: Discharge Diagnoses: Acute pancreatitis H Pylori Cdiff diarrhea DM type 2, uncontrolled ARLEY on CPAP HTN Peggy was admitted and treated with IVf resuscitation and bowel rest. She was started on Fish oil for hypertriglyceridemia. Valporic acid and Onglyza were stopped due to pancreatitis. This pancreatitis could be hypertriglyceridemia induced along with medication induced as well. A1c noted to be 11.5. She was started on Lantus and sliding scaled insulin to improve BS. Triglycerides slowly improved and have now dropped below 500. She will be continued on Fish Oil BID. She also was educated by diabetes education regarding insulin administration. She will have short acting Novolog TIDAC and Lantus 22 units daily. She will need to follow up with PCP and DM education to manage DM better. During her stay she was also diagnosed with H pylori and Cdiff diarrhea. She was started on Triple therapy, which included Biaxin, Flagyl and Protonix, continue this for 12 more days. She was started on Vancomycin 125 mg PO QID for Cdiff, which will be continued for 8 more days. Stools has slowed and she was progressively started on diet which she has tolerated BRAT diet and encouraged to stay on this for a few days avoiding dairy products to help with diarrhea. She also needs to discontinue Valporic acid and Onglyza secondary to pancreatitis risk. She will be discharged home today and is to continue with PCP in 1 week for follow up. She was encouraged to return to ED or clinic if concerns should arise or abdominal pain or diarrhea return or worsen. - General Info Date of Service: 10/16/17 Admission Dx/Problem (Free Text: Abdominal pain, pancreatitis, Cdiff positive Subjective Update: Feeling good. No abdominal pain. Tolerating diet. Eager to be discharged home this afternoon. Functional Status: Reports: Pain Controlled, Tolerating Diet, Ambulating, Urinating - Review of Systems General: Reports: No Symptoms. Denies: Fever, Weakness HEENT: Reports: No Symptoms. Denies: Headaches, Sore Throat, Visual Changes Pulmonary: Reports: No Symptoms. Denies: Shortness of Breath, Cough, Sputum Cardiovascular: Reports: No Symptoms. Denies: Chest Pain, Palpitations, Edema Gastrointestinal: Reports: Diarrhea (intermittent). Denies: Abdominal Pain, Nausea, Vomiting Genitourinary: Reports: No Symptoms. Denies: Dysuria, Frequency, Burning 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: Reports: No Symptoms. Denies: Neck Pain Skin: Reports: No Symptoms Neurological: Reports: No Symptoms Psychiatric: Reports: No Symptoms - Patient Data Vitals - Most Recent: Last Vital Signs Temp 96.7 F 10/16/17 12:00 Pulse 66 10/16/17 12:00 Resp 18 10/16/17 12:00 BP 132/78 10/16/17 12:00 Pulse Ox 96 10/16/17 12:00 Weight - Most Recent: 100.425 kg I&O - Last 24 hours: Intake & Output 10/15/17 10/16/17 10/16/17 22:59 06:59 14:59 Intake Total 2877 2140 Output Total 1900 1800 Balance 977 340 Lab Results - Last 24 hrs: Laboratory Results - last 24 hr 10/15/17 10/15/17 10/16/17 Range/Units 16:26 17:58 05:18 WBC 6.26 (4.0-11.0) K/uL RBC 3.78 L (4.30-5.90) M/uL Hgb 10.5 L (12.0-16.0) g/dL Hct 32.6 L (36.0-46.0) % MCV 86.2 (80.0-98.0) fL MCH 27.8 (27.0-32.0) pg MCHC 32.2 (31.0-37.0) g/dL RDW Std Deviation 42.4 (28.0-62.0) fl RDW Coeff of Felix 14 (11.0-15.0) % Plt Count 282 (150-400) K/uL MPV 9.40 (7.40-12.00) fL Neut % (Auto) 57.1 (48.0-80.0) % Lymph % (Auto) 28.8 (16.0-40.0) % [place] % (Auto) 8.8 (0.0-15.0) % Eos % (Auto) 4.5 (0.0-7.0) % Baso % (Auto) 0.8 (0.0-1.5) % Neut # (Auto) 3.6 (1.4-5.7) K/uL Lymph # (Auto) 1.8 (0.6-2.4) K/uL [place] # (Auto) 0.6 (0.0-0.8) K/uL Eos # (Auto) 0.3 (0.0-0.7) K/uL Baso # (Auto) 0.1 (0.0-0.1) K/uL Nucleated RBC % 0.0 /100WBC Nucleated RBCs # 0 K/uL Sodium (136-145) mmol/L Potassium (3.5-5.1) mmol/L Chloride (98-107) mmol/L Carbon Dioxide (21.0-32.0) mmol/L BUN (7.0-18.0) mg/dL Creatinine (0.6-1.0) mg/dL Est Cr Clr Drug Dosing mL/min Estimated GFR (MDRD) ml/min Glucose (74-106) mg/dL POC Glucose 139 H 160 H (60-110) mg/dL Calcium (8.5-10.1) mg/dL Magnesium (1.8-2.4) mg/dL 10/16/17 10/16/17 Range/Units 05:18 06:20 WBC (4.0-11.0) K/uL RBC (4.30-5.90) M/uL Hgb (12.0-16.0) g/dL Hct (36.0-46.0) % MCV (80.0-98.0) fL MCH (27.0-32.0) pg MCHC (31.0-37.0) g/dL RDW Std Deviation (28.0-62.0) fl RDW Coeff of Felix (11.0-15.0) % Plt Count (150-400) K/uL MPV (7.40-12.00) fL Neut % (Auto) (48.0-80.0) % Lymph % (Auto) (16.0-40.0) % [place] % (Auto) (0.0-15.0) % Eos % (Auto) (0.0-7.0) % Baso % (Auto) (0.0-1.5) % Neut # (Auto) (1.4-5.7) K/uL Lymph # (Auto) (0.6-2.4) K/uL [place] # (Auto) (0.0-0.8) K/uL Eos # (Auto) (0.0-0.7) K/uL Baso # (Auto) (0.0-0.1) K/uL Nucleated RBC % /100WBC Nucleated RBCs # K/uL Sodium 138 (136-145) mmol/L Potassium 3.2 L (3.5-5.1) mmol/L Chloride 103 (98-107) mmol/L Carbon Dioxide 24.6 (21.0-32.0) mmol/L BUN 3 L (7.0-18.0) mg/dL Creatinine 0.7 (0.6-1.0) mg/dL Est Cr Clr Drug Dosing 81.42 mL/min Estimated GFR (MDRD) > 60.0 ml/min Glucose 169 H (74-106) mg/dL POC Glucose 155 H (60-110) mg/dL Calcium 8.5 (8.5-10.1) mg/dL Magnesium 1.8 (1.8-2.4) mg/dL Med Orders - Current: Current Medications Albuterol/Ipratropium (Duoneb 3.0-0.5 Mg/3 Ml) 3 ml NEB Q4HRRT PRN PRN Reason: Shortness Of Breath/wheezing Cholecalciferol (Vitamin D3) 1,000 units PO DAILY [facility] Last Admin: 10/16/17 10:22 Dose: 1,000 units Clarithromycin (Biaxin) 500 mg PO BID [facility] Last Admin: 10/16/17 10:22 Dose: 500 mg Enoxaparin Sodium (Lovenox) 40 mg SUBCUT Q24H [facility] Last Admin: 10/15/17 21:51 Dose: 40 mg Fish Oil (Fish Oil) 2 gm PO BID [facility] Last Admin: 10/16/17 10:22 Dose: 2 gm Gabapentin (Neurontin) 600 mg PO BEDTIME [facility] Last Admin: 10/15/17 21:46 Dose: 600 mg Hydromorphone HCl (Dilaudid) 2 mg IVPUSH Q4H PRN PRN Reason: Pain Last Admin: 10/16/17 01:16 Dose: 2 mg Hydroxyzine HCl (Atarax) 50 mg PO BEDTIME [facility] Last Admin: 10/15/17 21:46 Dose: 50 mg Sodium Chloride (Normal Saline) 1,000 mls @ 100 mls/hr IV ASDIRECTED [facility] Last Admin: 10/16/17 07:41 Dose: 100 mls/hr Insulin Aspart (Novolog) 0 unit SUBCUT TIDAC [facility]; Protocol Last Admin: 10/16/17 11:44 Dose: 2 units Insulin Glargine (Lantus Solostar) 20 units SUBCUT DAILY [facility] Last Admin: 10/16/17 10:22 Dose: 20 units Lisinopril (Prinivil) 10 mg PO DAILY [facility] Last Admin: 10/16/17 10:22 Dose: 10 mg Magnesium Oxide (Magnesium Oxide) 400 mg PO DAILY [facility] Last Admin: 10/16/17 10:22 Dose: 400 mg Metronidazole (Metronidazole) 500 mg PO Q8H [facility] Last Admin: 10/16/17 06:35 Dose: 500 mg Ondansetron HCl (Zofran) 4 mg IVPUSH Q4H PRN PRN Reason: Nausea Last Admin: 10/16/17 01:16 Dose: 4 mg Pantoprazole Sodium (Protonix) 40 mg PO BIDAC [facility] Last Admin: 10/16/17 06:35 Dose: 40 mg Sodium Chloride (Saline Flush) 10 ml FLUSH ASDIRECTED PRN PRN Reason: Keep Vein Open Sodium Chloride (Saline Flush) 2.5 ml FLUSH ASDIRECTED PRN PRN Reason: Keep Vein Open Vancomycin HCl (First-Vancomycin 25 Compounding Kit) 125 mg PO QID [facility] Last Admin: 10/16/17 11:44 Dose: 125 mg Venlafaxine HCl (Effexor Xr) 225 mg PO BEDTIME [facility] Last Admin: 10/15/17 21:49 Dose: 225 mg Discontinued Medications Betamethasone/Clotrimazole (Lotrisone) 0 gm TOP BID [facility] Last Admin: 10/14/17 10:26 Dose: Not Given Al Hydroxide/Mg Hydroxide 15 ml/ Metoclopramide HCl 5 mg/Lidocaine HCl 5 ml 0 ml PO ONETIME ONE Stop: 10/11/17 17:32 Last Admin: 10/11/17 18:26 Dose: 25 each Diphtheria/Tetanus/Acell Pertussis (Adacel) 0.5 ml IM .ONCE ONE Stop: 10/11/17 18:48 Last Admin: 10/15/17 11:39 Dose: Not Given Divalproex Sodium (Depakote) 500 mg PO BEDTIME [facility] Last Admin: 10/12/17 20:33 Dose: 500 mg Erythromycin (Erythromycin 0.5% Ophth Oint) 1 gm EYEBOTH ONETIME ONE Stop: 10/11/17 18:48 Last Admin: 10/12/17 01:25 Dose: Not Given Famotidine (Pepcid) 20 mg IVPUSH ONETIME ONE Stop: 10/11/17 19:18 Last Admin: 10/11/17 19:49 Dose: 20 mg Famotidine (Pepcid) 20 mg IVPUSH BID [facility] Last Admin: 10/15/17 10:25 Dose: Not Given Hydromorphone HCl (Dilaudid) 1 mg IVPUSH Q3H PRN PRN Reason: Pain Last Admin: 10/13/17 09:19 Dose: 1 mg Sodium Chloride (Normal Saline) 1,000 mls @ 999 mls/hr IV STAT ONE Stop: 10/11/17 18:29 Last Admin: 10/11/17 18:30 Dose: 999 mls/hr Sodium Chloride (Normal Saline) 1,000 mls @ 150 mls/hr IV STAT ONE Stop: 10/12/17 02:09 Last Admin: 10/11/17 19:53 Dose: 999 mls/hr Pantoprazole Sodium 80 mg/ (Sodium Chloride) 100 mls @ 10 mls/hr IV .Continuous [facility] Last Admin: 10/12/17 05:28 Dose: 10 mls/hr Lactated Ringer's (Ringers, Lactated) 1,000 mls @ 200 mls/hr IV ASDIRECTED [facility] Sodium Chloride (Normal Saline) 1,000 mls @ 200 mls/hr IV ASDIRECTED [facility] Last Admin: 10/15/17 05:41 Dose: 200 mls/hr Metronidazole 500 mg/ Premix 100 mls @ 100 mls/hr IV QID [facility] Last Admin: 10/15/17 05:46 Dose: 100 mls/hr Magnesium Sulfate 2 gm/ Premix 50 mls @ 50 mls/hr IV ONETIME ONE Stop: 10/15/17 08:41 Last Admin: 10/15/17 10:20 Dose: 50 mls/hr Insulin Aspart (Novolog) 0 unit SUBCUT Q6H [facility]; Protocol Last Admin: 10/15/17 05:05 Dose: Not Given Insulin Glargine (Lantus Solostar) 10 units SUBCUT DAILY [facility] Last Admin: 10/13/17 09:39 Dose: 10 units Insulin Glargine (Lantus Solostar) 10 units SUBCUT DAILY ONE Stop: 10/13/17 13:01 Last Admin: 10/13/17 14:11 Dose: 10 units Iopamidol (Isovue Multipack-370 (76%)) 100 ml IVPUSH ONETIME STA Stop: 10/11/17 18:52 Last Admin: 10/11/17 18:52 Dose: 100 ml Lisinopril (Prinivil) 10 mg PO DAILY [facility] Metronidazole (Metronidazole) 500 mg PO Q8H [facility] Last Admin: 10/13/17 10:33 Dose: Not Given Morphine Sulfate (Morphine) 4 mg IVPUSH ONETIME ONE Stop: 10/11/17 19:18 Last Admin: 10/11/17 19:58 Dose: Not Given Morphine Sulfate (Morphine) 4 mg IVPUSH ONETIME ONE Stop: 10/11/17 19:56 Last Admin: 10/11/17 20:00 Dose: 4 mg Ondansetron HCl (Zofran) 4 mg IVPUSH ONETIME ONE Stop: 10/11/17 17:32 Last Admin: 10/11/17 18:28 Dose: 4 mg Pantoprazole Sodium (Protonix Iv) 40 mg IV Q12H [facility] Last Admin: 10/14/17 08:25 Dose: 40 mg Potassium Chloride (Klor-Con M20) 40 meq PO ONETIME ONE Stop: 10/15/17 07:43 Last Admin: 10/15/17 10:25 Dose: Not Given Potassium Chloride (Klor-Con M20) 40 meq PO ONETIME ONE Stop: 10/15/17 10:31 Last Admin: 10/15/17 10:29 Dose: 40 meq Potassium Chloride (Klor-Con M20) 40 meq PO ONETIME ONE Stop: 10/16/17 07:58 Last Admin: 10/16/17 10:22 Dose: 40 meq Venlafaxine HCl (Effexor Xr) 225 mg PO ONETIME ONE Stop: 10/11/17 23:01 Last Admin: 10/11/17 22:46 Dose: 225 mg - Exam General: Reports: Alert, Oriented, Cooperative, No Acute Distress Neck: Reports: Supple Lungs: Reports: Clear to Auscultation, Normal Respiratory Effort Cardiovascular: Reports: Regular Rate, Regular Rhythm GI/Abdominal Exam: Normal Bowel Sounds, Soft, Non-Tender Extremities: Normal Inspection, Normal Range of Motion Wound/Incisions: Reports: Healing Well Neurological: Reports: No New Focal Deficit Psy/Mental Status: Reports: Alert, Normal Affect, Normal Mood
== END 2017-10-16 16:20 | disposition home or self-care (01) | DRG 282 ==
LOC: MW.ED 17:15 → MW.MS 20:45 → OBSVTOIN 10-13 12:53 → MW.MS 10-13 14:16
PROVIDERS: ADMIT Internal Medicine; ATTEND Internal Medicine
DX: K85.90 Acute pancreatitis without necrosis or infection, unspecified (principal); A04.72 Enterocolitis due to Clostridium difficile, not specified as recurrent; E11.65 Type 2 diabetes mellitus with hyperglycemia; A04.8 Other specified bacterial intestinal infections; I10 Essential (primary) hypertension; F39 Unspecified mood [affective] disorder; G47.33 Obstructive sleep apnea (adult) (pediatric); Z99.89 Dependence on other enabling machines and devices; E78.1 Pure hyperglyceridemia; K21.9 Gastro-esophageal reflux disease without esophagitis; F41.9 Anxiety disorder, unspecified; E66.01 Morbid (severe) obesity due to excess calories; F17.210 Nicotine dependence, cigarettes, uncomplicated; Z68.41 Body mass index [BMI] 40.0-44.9, adult; Z91.040 Latex allergy status; Z79.899 Other long term (current) drug therapy; F32.9 Major depressive disorder, single episode, unspecified
CPT/HCPCS: 36415; 74177; 74177-26; 80048; 80053; 80061; 81001; 82150; 82962; 83036; 83630; 83690; 83735; 84478; 85025; 86677; 87046; 87324; 87338; 87899; 96361; 96365; 96366; 96372; 96375; 96376; 99283; 99285-25; A9270-GY; C9113; G0378; J1170; J1650; J1815-GY ×2; J2270; J2405; J3475; J3490; J7030; J7040; Q9967

== ENCOUNTER 2018-04-18 10:08 | Emergency (ER) | payer BC, OTHER ==
[2018-04-18] MEDS ORDERED: Sodium Chloride 0.9% 10 ML Syringe FLUSH PRN (10:14)
[2018-04-18] MEDS ORDERED: Sodium Chloride 0.9% 2.5 ML Syringe FLUSH PRN (10:14)
--- NOTE | 2018-04-18 10:30 | EDM.PDOC ---
ED HPI GENERAL MEDICAL PROBLEM - General Chief Complaint: Chest Pain Stated Complaint: CHEST PAIN, SUGAR LEVELS OFF Time Seen by Provider: 04/18/18 10:26 Source of Information: Reports: Patient History Limitations: Reports: No Limitations - History of Present Illness INITIAL COMMENTS - FREE TEXT/NARRATIVE: HISTORY AND PHYSICAL: History of present illness: Patient is a 37-year-old female here with complaint of left-sided "rib pain." She states she was at work and she had some yogurt, states she checked her blood sugar was 100 and shortly after checked it again and was 108. She states it is rising too fast that she gave herself some insulin. And after that she started feeling nauseous and shaky but she did not recheck her blood sugar. Blood glucose on arrival was 114. She states she developed left-sided rib pain. The nausea and shakiness has subsided but she still complaining of pain on her left side and states it feels like she tensed up too much while she was shaky. She denies any left arm or jaw pain, shortness of breath, abdominal pain, fever , chills, vomiting, diarrhea. She has history of type 2 diabetes, hypertension, pancreatitis. Review of systems: As per history of present illness and below otherwise all systems reviewed and negative. Past medical history: As per history of present illness and as reviewed below otherwise noncontributory. Surgical history: As per history of present illness and as reviewed below otherwise noncontributory. Social history: No reported history of drug or alcohol abuse. Family history: As per history of present illness and as reviewed below otherwise noncontributory. Physical exam: General: Patient sitting comfortably in no acute distress and nontoxic appearing HEENT: Atraumatic, normocephalic, pupils reactive, negative for conjunctival pallor or scleral icterus, mucous membranes moist, throat clear, neck supple, nontender, trachea midline. No meningeal signs. Lungs: Clear to auscultation, breath sounds equal bilaterally, chest nontender. Heart: S1S2, regular, negative for clicks, rubs, or overt murmur. Abdomen: Soft, nondistended, nontender. Negative for masses or hepatosplenomegaly. Negative for costovertebral tenderness. Pelvis: Stable nontender. Genitourinary: Deferred. Rectal: Deferred. Extremities: Atraumatic, negative for cords or calf pain. Neurovascular unremarkable. Neuro: Awake, alert, oriented. Cranial nerves II through XII unremarkable. Cerebellum unremarkable. Motor and sensory unremarkable throughout. Exam nonfocal. Notes: 1150 - states chest not painful just feels uncomfortable and is on both sides of his lower chest. Discussed admitting for observation for chest pain given her history of diabetes and hypertension. She declines at this time and fully understands risks of this decision. She was advised to return to ED if she develops new or worsening symptoms. Diagnostics: CBC, CMP, troponin, lipase, EKG, CXR, influenza Therapeutics: 1L Normal Saline IV Prescriptions: None Impression: Atypical chest pain Plan: 1. Follow up with primary care provider 2. Return to ED as needed as discussed Definitive disposition and diagnosis as appropriate pending reevaluation and review of above. - Related Data Allergies Allergy/AdvReac Type Severity Reaction Status Date / Time bacitracin Allergy Itching Verified 04/18/18 10:34 [From Triple Antibiotic] banana Allergy Itching Verified 04/18/18 10:34 hydrocortisone Allergy Itching Verified 04/18/18 10:34 latex Allergy "due to Verified 04/18/18 10:34 banana allergy" neomycin Allergy Itching Verified 04/18/18 10:34 [From Triple Antibiotic] polymyxin B Allergy Itching Verified 04/18/18 10:34 [From Triple Antibiotic] cats Allergy Mild Sneezing Uncoded 04/18/18 10:34 cloth bandaids Allergy Mild Rash Uncoded 04/18/18 10:34 fruit Allergy Mild scratchy Uncoded 04/18/18 10:34 throat seasonal allergies Allergy Mild Sneezing Uncoded 04/18/18 10:34 Home Meds: Home Meds Lisinopril 1 tab PO DAILY 06/11/16 [History] Magnesium 250 mg PO DAILY 03/25/17 [History] Cholecalciferol (Vitamin D3) [Vitamin D3] 1 tab PO DAILY 04/07/17 [History] Gabapentin [Neurontin] 2 tab PO BEDTIME 04/07/17 [History] L.acidoph,Paracasei, B.lactis [Probiotic] 1 tab PO BEDTIME 04/07/17 [History] Loratadine [Claritin] 10 mg PO DAILY 04/07/17 [History] PNV95/Ferrous Fumarate/FA [ Vitamin Tablet] 1 tab PO BEDTIME 04/07/17 [ History] Sucralfate 1 gm PO BID 04/07/17 [History] Allopurinol [Zyloprim] 0 mg PO DAILY 10/11/17 [History] Cyanocobalamin (Vitamin B-12) [Vitamin B-12] 500 mcg PO DAILY 10/11/17 [History] Clarithromycin [Biaxin] 500 mg PO BID #24 tablet 10/16/17 [Rx] Fish Oil/Stambaugh-3 Fatty Acids [Fish Oil 1,000 MG] 2 gm PO BID #60 cap 10/16/17 [ Rx] Insulin Aspart [NovoLOG] See Protocol SUBCUT TIDAC #1 box 10/16/17 [Rx] Insulin Glarg,Human.Rec.Analog [Lantus Solostar] 22 units SUBCUT DAILY #1 box [Rx] Pantoprazole [ProTONIX] 40 mg PO BIDAC #24 tab.cr 10/16/17 [Rx] Past Medical History HEENT History: Reports: Impaired Vision, Other (See Below) Other HEENT History: wears glasses Cardiovascular History: Reports: Hypertension Respiratory History: Reports: Asthma, Sleep Apnea Other Respiratory History: asthma as a child, uses CPAP Gastrointestinal History: Reports: GERD Genitourinary History: Reports: Renal Calculus [employer] History: Reports: 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 History: Reports: Fracture Neurological History: Reports: Migraines Psychiatric History: Reports: Anxiety, Depression Endocrine/Metabolic History: Reports: Diabetes, Type II, Obesity/BMI 30+ Hematologic History: Reports: None Immunologic History: Reports: None Oncologic (Cancer) History: Reports: None - Infectious Disease History Infectious Disease History: Reports: None - Past Surgical History Head Surgeries/Procedures: Reports: None GI Surgical History: Reports: Cholecystectomy Female Surgical History: Reports: Section, Hysterectomy, Lithotripsy /ESWL 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 Surgical History: Reports: Other (See Below) Other 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 Surgeries/Procedures:: surgical tx for broken left wrist ( external fixator) Oncologic Surgical History: Reports: None Social & Family History - Family History Family Medical History: Noncontributory - Caffeine Use Caffeine Use: Reports: Coffee Caffeine Use Comment: 2 cups daily ED ROS GENERAL - Review of Systems Review Of Systems: ROS reveals no pertinent complaints other than HPI. ED EXAM, GENERAL - Physical Exam Exam: See Below (see dictation) Course - Vital Signs Last Recorded V/S: Last Vital Signs Temp 97.6 F 04/18/18 10:34 Pulse 68 04/18/18 10:34 Resp 16 04/18/18 10:34 BP 124/81 04/18/18 10:34 Pulse Ox 97 04/18/18 10:34 - Orders/Labs/Meds Orders: Active Orders 24 hr Category Date Time Status EKG Documentation Completion [RC] STAT Care 04/18/18 10:14 Active Sodium Chloride 0.9% [Saline Flush] Med 04/18/18 10:14 Active 10 ml FLUSH ASDIRECTED PRN Sodium Chloride 0.9% [Saline Flush] Med 04/18/18 10:14 Active 2.5 ml FLUSH ASDIRECTED PRN Saline Lock Insert [OM.PC] Stat Oth 04/18/18 10:14 Ordered Medication Orders Sodium Chloride (Saline Flush) 10 ml FLUSH ASDIRECTED PRN PRN Reason: Keep Vein Open Sodium Chloride (Saline Flush) 2.5 ml FLUSH ASDIRECTED PRN PRN Reason: Keep Vein Open Labs: Laboratory Tests 04/18/18 04/18/18 04/18/18 Range/Units 10:15 10:27 10:27 WBC 9.89 (4.0-11.0) K/uL RBC 4.42 (4.30-5.90) M/uL Hgb 12.2 (12.0-16.0) g/dL Hct 37.3 (36.0-46.0) % MCV 84.4 (80.0-98.0) fL MCH 27.6 (27.0-32.0) pg MCHC 32.7 (31.0-37.0) g/dL RDW Std Deviation 43.6 (28.0-62.0) fl RDW Coeff of Felix 14 (11.0-15.0) % Plt Count 304 (150-400) K/uL MPV 9.70 (7.40-12.00) fL Neut % (Auto) 65.2 (48.0-80.0) % Lymph % (Auto) 25.4 (16.0-40.0) % [place] % (Auto) 6.5 (0.0-15.0) % Eos % (Auto) 2.5 (0.0-7.0) % Baso % (Auto) 0.4 (0.0-1.5) % Neut # (Auto) 6.5 H (1.4-5.7) K/uL Lymph # (Auto) 2.5 H (0.6-2.4) K/uL [place] # (Auto) 0.6 (0.0-0.8) K/uL Eos # (Auto) 0.3 (0.0-0.7) K/uL Baso # (Auto) 0.0 (0.0-0.1) K/uL Nucleated RBC % 0.0 /100WBC Nucleated RBCs # 0 K/uL Sodium 134 L (136-145) mmol/L Potassium 3.9 (3.5-5.1) mmol/L Chloride 99 (98-107) mmol/L Carbon Dioxide 23.5 (21.0-32.0) mmol/L BUN 14 (7.0-18.0) mg/dL Creatinine 0.8 (0.6-1.0) mg/dL Est Cr Clr Drug Dosing 71.24 mL/min Estimated GFR (MDRD) > 60.0 ml/min Glucose 122 H (74-106) mg/dL POC Glucose 114 H (60-110) mg/dL Calcium 9.8 (8.5-10.1) mg/dL Total Bilirubin 0.3 (0.2-1.0) mg/dL AST 12 L (15-37) IU/L ALT 26 (14-63) IU/L Alkaline Phosphatase 69 (46-116) U/L Troponin I < 0.050 (0.000-0.056) ng/mL Total Protein 7.8 (6.4-8.2) g/dL Albumin 3.9 (3.4-5.0) g/dL Globulin 3.9 (2.6-4.0) g/dL Albumin/Globulin Ratio 1.0 (0.9-1.6) Lipase (73-393) U/L Urine Color Urine Appearance Urine pH (5.0-8.0) Ur Specific [place] (1.001-1.035) Urine Protein (NEGATIVE) mg/dL Urine Glucose (UA) (NEGATIVE) mg/dL Urine Ketones (NEGATIVE) mg/dL Urine Occult Blood (NEGATIVE) Urine Nitrite (NEGATIVE) Urine Bilirubin (NEGATIVE) Urine Urobilinogen (<2.0) EU/dL Ur Leukocyte Esterase (NEGATIVE) 04/18/18 04/18/18 Range/Units 10:27 11:15 WBC (4.0-11.0) K/uL RBC (4.30-5.90) M/uL Hgb (12.0-16.0) g/dL Hct (36.0-46.0) % MCV (80.0-98.0) fL MCH (27.0-32.0) pg MCHC (31.0-37.0) g/dL RDW Std Deviation (28.0-62.0) fl RDW Coeff of Felix (11.0-15.0) % Plt Count (150-400) K/uL MPV (7.40-12.00) fL Neut % (Auto) (48.0-80.0) % Lymph % (Auto) (16.0-40.0) % [place] % (Auto) (0.0-15.0) % Eos % (Auto) (0.0-7.0) % Baso % (Auto) (0.0-1.5) % Neut # (Auto) (1.4-5.7) K/uL Lymph # (Auto) (0.6-2.4) K/uL [place] # (Auto) (0.0-0.8) K/uL Eos # (Auto) (0.0-0.7) K/uL Baso # (Auto) (0.0-0.1) K/uL Nucleated RBC % /100WBC Nucleated RBCs # K/uL Sodium (136-145) mmol/L Potassium (3.5-5.1) mmol/L Chloride (98-107) mmol/L Carbon Dioxide (21.0-32.0) mmol/L BUN (7.0-18.0) mg/dL Creatinine (0.6-1.0) mg/dL Est Cr Clr Drug Dosing mL/min Estimated GFR (MDRD) ml/min Glucose (74-106) mg/dL POC Glucose (60-110) mg/dL Calcium (8.5-10.1) mg/dL Total Bilirubin (0.2-1.0) mg/dL AST (15-37) IU/L ALT (14-63) IU/L Alkaline Phosphatase (46-116) U/L Troponin I (0.000-0.056) ng/mL Total Protein (6.4-8.2) g/dL Albumin (3.4-5.0) g/dL Globulin (2.6-4.0) g/dL Albumin/Globulin Ratio (0.9-1.6) Lipase 182 (73-393) U/L Urine Color YELLOW Urine Appearance CLEAR Urine pH 7.5 (5.0-8.0) Ur Specific [place] <= 1.005 (1.001-1.035) Urine Protein NEGATIVE (NEGATIVE) mg/dL Urine Glucose (UA) NEGATIVE (NEGATIVE) mg/dL Urine Ketones NEGATIVE (NEGATIVE) mg/dL Urine Occult Blood NEGATIVE (NEGATIVE) Urine Nitrite NEGATIVE (NEGATIVE) Urine Bilirubin NEGATIVE (NEGATIVE) Urine Urobilinogen 0.2 (<2.0) EU/dL Ur Leukocyte Esterase NEGATIVE (NEGATIVE) Meds: Medications Generic Name Dose Route Start Last Admin Trade Name Freq PRN Reason Stop Dose Admin Sodium Chloride 10 ml 04/18/18 10:14 Saline Flush FLUSH ASDIRECTED PRN Keep Vein Open Sodium Chloride 2.5 ml 04/18/18 10:14 Saline Flush FLUSH ASDIRECTED PRN Keep Vein Open Discontinued Medications Generic Name Dose Route Start Last Admin Trade Name Freq PRN Reason Stop Dose Admin Aspirin 324 mg 04/18/18 11:07 04/18/18 11:46 Aspirin PO 04/18/18 11:08 324 mg ONETIME ONE Administration Sodium Chloride 1,000 mls @ 999 mls/hr 04/18/18 10:36 04/18/18 11:30 Normal Saline IV 04/18/18 11:36 999 mls/hr STAT ONE Administration Departure - Departure Time of Disposition: 12:30 Disposition: Home, Self-Care 01 Condition: Good Clinical Impression: Atypical chest pain Referrals: PCP,None [Primary Care Provider] - Forms: ED Department Discharge Additional Instructions: The following information is given to patients seen in the emergency department who are being discharged to home. This information is to outline your options for follow-up care. We provide all patients seen in our emergency department with a follow-up referral. The need for follow-up, as well as the timing and circumstances, are variable depending upon the specifics of your emergency department visit. If you don't have a primary care physician on staff, we will provide you with a referral. We always advise you to contact your personal physician following an emergency department visit to inform them of the circumstance of the visit and for follow-up with them and/or the need for any referrals to a consulting specialist. The emergency department will also refer you to a specialist when appropriate. This referral assures that you have the opportunity for follow-up care with a specialist. All of these measure are taken in an effort to provide you with optimal care, which includes your follow-up. Under all circumstances we always encourage you to contact your private physician who remains a resource for coordinating your care. When calling for follow-up care, please make the office aware that this follow-up is from your recent emergency room visit. If for any reason you are refused follow-up, please contact the [facility] Emergency Department at and asked to speak to the emergency department charge nurse. 1. Follow up with primary care provider 2. Return to ED as needed as discussed - My Orders Last 24 Hours: My Active Orders 04/18/18 10:14 EKG Documentation Completion [RC] STAT Sodium Chloride 0.9% [Saline Flush] 10 ml FLUSH ASDIRECTED PRN Sodium Chloride 0.9% [Saline Flush] 2.5 ml FLUSH ASDIRECTED PRN Saline Lock Insert [OM.PC] Stat - Assessment/Plan Last 24 Hours: My Active Orders 04/18/18 10:14 EKG Documentation Completion [RC] STAT Sodium Chloride 0.9% [Saline Flush] 10 ml FLUSH ASDIRECTED PRN Sodium Chloride 0.9% [Saline Flush] 2.5 ml FLUSH ASDIRECTED PRN Saline Lock Insert [OM.PC] Stat
[2018-04-18] MEDS ORDERED: Sodium Chloride 0.9% 1,000 ML IV ONE (10:36)
--- NOTE | 2018-04-18 10:45 | CR ---
Indication: Chest pain. Technique: A single AP portable view of the chest was obtained. Comparison: None Findings: The heart is normal in size. The lungs are clear. No infiltrate, pleural effusion, or pneumothorax is identified. Impression: No acute cardiopulmonary process. Dictated by Berenice Vanessa MD @ Apr 18 2018 10:43AM Signed by Dr. Berenice Vanessa @ Apr 18 2018 10:44AM
[2018-04-18 10:58] LABS: CHLORIDE,CL 99 mmol/L (98-107); SODIUM,NA 134 mmol/L (136-145)
[2018-04-18] MEDS ORDERED: Aspirin 81 MG Tab.Chew PO ONE (11:07)
[2018-04-18 19:27] VITALS: BP 133/81
== END 2018-04-18 12:33 | disposition home or self-care (01) ==
LOC: MW.ED 10:08
DX: R07.89 Other chest pain (principal); I10 Essential (primary) hypertension; E11.9 Type 2 diabetes mellitus without complications; E66.9 Obesity, unspecified; Z88.8 Allergy status to other drugs, medicaments and biological substances; Z88.1 Allergy status to other antibiotic agents; Z79.899 Other long term (current) drug therapy; Z91.048 Other nonmedicinal substance allergy status
CPT/HCPCS: 36415; 71045; 80053; 81003; 82962; 83690; 84484; 85025; 87804; 93005; 96360; 99284; A9270; J7040

== ENCOUNTER 2018-07-23 10:23 | Emergency (ER) | payer BC, OTHER ==
[2018-07-23] MEDS ORDERED: Ketorolac 30 MG/ML SDV IVPUSH ONE (10:50)
[2018-07-23] MEDS ORDERED: Ondansetron 4 MG/2 ML SDV IVPUSH ONE (10:50)
[2018-07-23] MEDS ORDERED: Sodium Chloride 0.9% 1,000 ML IV ONE (10:50)
[2018-07-23] MEDS ORDERED: Alum Hydrox/Mag Hydrox/Simeth 15 ML, Lidocaine 2% 5 ML PO ONE ×2 (10:51)
--- NOTE | 2018-07-23 10:57 | EDM.PDOC ---
ED HPI GENERAL MEDICAL PROBLEM - General Chief Complaint: Abdominal Pain Stated Complaint: unsteady, stomach pain, headache Time Seen by Provider: 07/23/18 10:33 Source of Information: Reports: Patient History Limitations: Reports: No Limitations - History of Present Illness INITIAL COMMENTS - FREE TEXT/NARRATIVE: HISTORY AND PHYSICAL: History of present illness: Patient is a 37-year-old female presents to the ED today with concern of mid upper abdominal pain since this morning. Patient rates her pain a 9 out of 10 and states she has taken ibuprofen without relief of symptoms. Patient describes the pain as burning and states that she also feels nauseous and has not eaten or drank anything today. Patient states she also has chronic headaches and dizziness which she currently has been working up and has an MRI scheduled for in 8 days. Patient states the headache and the dizziness is unchanged from her baseline. Patient states she does have a history of pancreatitis which her pain is somewhat similar to. Patient denies fever, chills, chest pain, shortness of breath, or cough. Denies neck stiff ness, change in vision, syncope, or near syncope. Denies vomiting, diarrhea, constipation, or dysuria. Has not noted any blood in urine or stool. Patient has been eating and drinking appropriately prior to onset of abdominal pain today. Review of systems: As per history of present illness and below otherwise all systems reviewed and negative. Past medical history: As per history of present illness and as reviewed below otherwise noncontributory. Surgical history: As per history of present illness and as reviewed below otherwise noncontributory. Social history: See social history for further information Family history: As per history of present illness and as reviewed below otherwise noncontributory. Physical exam: General: Patient is alert, oriented, and in no acute distress. Patient laying comfortably on exam table but tired appearing. HEENT: Atraumatic, normocephalic, pupils equal and reactive bilaterally, negative for conjunctival pallor or scleral icterus, mucous membranes moist, TMs normal bilaterally, throat clear, neck supple, nontender, trachea midline. No drooling or trismus noted. No meningeal signs. No hot potato voice noted. Lungs: Clear to auscultation, breath sounds equal bilaterally, chest nontender. Heart: S1S2, regular rate and rhythm without overt murmur Abdomen: The patient has moderate to severe pain with palpation of the mid upper abdomen with guarding. Otherwise, soft, nondistended. Positive bowel sounds throughout all quadrants. Negative for masses or hepatosplenomegaly. Negative for costovertebral tenderness. Pelvis: Stable nontender. Genitourinary: Deferred. Rectal: Deferred. Skin: Intact, warm, dry. No lesions or rashes noted. Extremities: Atraumatic, negative for cords or calf pain. Neurovascular unremarkable. Neuro: Awake, alert, oriented. Cranial nerves II through XII unremarkable. Cerebellum unremarkable. Motor and sensory unremarkable throughout. Exam nonfocal. Notes: Abd/pelvic CT shows no acute findings. Nonobstructing left nephrolithiasis. Dr. Thurston verbally involved in patients care. Supportive care measures were reviewed and discussed. Voices understanding and is agreeable to plan of care. Denies any further questions or concerns at this time. Diagnostics: CBC, CMP, UA, urine hCG, lipase, H. pylori, bedside glucose, abdominal pelvic CT , EKG, orthostatic vitals Therapeutics: Saline, Zofran, Toradol, GI cocktail, meclizine Prescription: Zofran Impression: Abdominal pain unspecified Nonobstructive left nephrolithiasis Plan: 1. Take medication as prescribed. You can alternate ibuprofen and Tylenol as directed for pain and discomfort. 2. Follow-up with her primary care provider and with your MRI as scheduled. 3. Return to the ED as needed and as discussed. Definitive disposition and diagnosis as appropriate pending reevaluation and review of above. abdominal Pain Score (Numeric/FACES): 7 - Related Data Allergies Allergy/AdvReac Type Severity Reaction Status Date / Time bacitracin Allergy Itching Verified 07/23/18 10:38 [From Triple Antibiotic] banana Allergy Itching Verified 07/23/18 10:38 hydrocortisone Allergy Itching Verified 07/23/18 10:38 latex Allergy "due to Verified 07/23/18 10:38 banana allergy" neomycin Allergy Itching Verified 07/23/18 10:38 [From Triple Antibiotic] polymyxin B Allergy Itching Verified 07/23/18 10:38 [From Triple Antibiotic] cats Allergy Mild Sneezing Uncoded 07/23/18 10:38 cloth bandaids Allergy Mild Rash Uncoded 07/23/18 10:38 fruit Allergy Mild scratchy Uncoded 07/23/18 10:38 throat seasonal allergies Allergy Mild Sneezing Uncoded 07/23/18 10:38 Home Meds: Home Meds Lisinopril 1 tab PO DAILY 06/11/16 [History] Magnesium 250 mg PO DAILY 03/25/17 [History] Gabapentin [Neurontin] 3 tab PO BEDTIME 04/07/17 [History] L.acidoph,Paracasei, B.lactis [Probiotic] 1 tab PO BEDTIME 04/07/17 [History] Loratadine [Claritin] 10 mg PO DAILY 04/07/17 [History] Sucralfate 1 gm PO BID 04/07/17 [History] Cyanocobalamin (Vitamin B-12) [Vitamin B-12] 500 mcg PO DAILY 10/11/17 [History] Fish Oil/[place]-3 Fatty Acids [Fish Oil 1,000 MG] 2 gm PO BID #60 cap 10/16/17 [ Rx] Insulin Aspart [NovoLOG] See Protocol SUBCUT TIDAC #1 box 10/16/17 [Rx] ALPRAZolam [Xanax] 0.5 mg PO DAILY PRN 07/23/18 [History] Ascorbic Acid [Vitamin C] 1 tab PO DAILY 07/23/18 [History] Insulin Glarg,Human.Rec.Analog [Lantus Solostar] 16 units SUBCUT DAILY 07/23/18 [History] Pantoprazole [ProTONIX] 40 mg PO DAILY 07/23/18 [History] Venlafaxine [Effexor XR] 150 mg PO DAILY 07/23/18 [History] Past Medical History HEENT History: Reports: Impaired Vision, Other (See Below) Other HEENT History: wears glasses Cardiovascular History: Reports: Hypertension Respiratory History: Reports: Asthma, Sleep Apnea Other Respiratory History: asthma as a child, uses CPAP Gastrointestinal History: Reports: GERD Genitourinary History: Reports: Renal Calculus [employer] History: Reports: 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 History: Reports: Fracture Neurological History: Reports: Migraines Psychiatric History: Reports: Anxiety, Depression Endocrine/Metabolic History: Reports: Diabetes, Type II, Obesity/BMI 30+ Hematologic History: Reports: None Immunologic History: Reports: None Oncologic (Cancer) History: Reports: None - Infectious Disease History Infectious Disease History: Reports: C-Difficile - Past Surgical History Head Surgeries/Procedures: Reports: None GI Surgical History: Reports: Cholecystectomy Female Surgical History: Reports: Section, Hysterectomy, Lithotripsy /ESWL 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 Surgical History: Reports: Other (See Below) Other 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 Surgeries/Procedures:: surgical tx for broken left wrist ( external fixator) Oncologic Surgical History: Reports: None Social & Family History - Family History Family Medical History: Noncontributory - Tobacco Use Smoking Status *Q: Current Every Day Smoker Years of Tobacco use: 3 Packs/Tins Daily: 0.5 - Caffeine Use Caffeine Use: Reports: Coffee Caffeine Use Comment: 2 cups daily - Recreational Drug Use Recreational Drug Use: No ED ROS GENERAL - Review of Systems Review Of Systems: ROS reveals no pertinent complaints other than HPI. ED EXAM, GI/ABD - Physical Exam Exam: See Below (see dictation) Course - Vital Signs Last Recorded V/S: Last Vital Signs Temp 36.4 C 07/23/18 10:33 Pulse 87 07/23/18 10:33 Resp 20 07/23/18 10:33 BP 137/82 07/23/18 10:33 Pulse Ox 95 07/23/18 10:33 Orthostatic Blood Pressure [ 114/64 Standing] Orthostatic Blood Pressure [ 120/81 Sitting] Orthostatic Blood Pressure [ 134/77 Supine] - Orders/Labs/Meds Orders: Active Orders 24 hr Category Date Time Status EKG Documentation Completion [RC] STAT Care 07/23/18 10:57 Active Glucose [Blood Glucose Check, Bedside] [RC] ONETIME Care 07/23/18 10:42 Active Orthostatic Vital Signs [RC] ASDIRECTED Care 07/23/18 10:58 Active Labs: Laboratory Tests 07/23/18 07/23/18 07/23/18 Range/Units 11:06 11:06 11:06 WBC 12.90 H (4.0-11.0) K/uL RBC 4.67 (4.30-5.90) M/uL Hgb 12.9 (12.0-16.0) g/dL Hct 39.7 (36.0-46.0) % MCV 85.0 (80.0-98.0) fL MCH 27.6 (27.0-32.0) pg MCHC 32.5 (31.0-37.0) g/dL RDW Std Deviation 44.5 (28.0-62.0) fl RDW Coeff of Felix 14 (11.0-15.0) % Plt Count 300 (150-400) K/uL MPV 10.00 (7.40-12.00) fL Neut % (Auto) 66.3 (48.0-80.0) % Lymph % (Auto) 24.3 (16.0-40.0) % [place] % (Auto) 7.0 (0.0-15.0) % Eos % (Auto) 2.0 (0.0-7.0) % Baso % (Auto) 0.4 (0.0-1.5) % Neut # (Auto) 8.6 H (1.4-5.7) K/uL Lymph # (Auto) 3.1 H (0.6-2.4) K/uL [place] # (Auto) 0.9 H (0.0-0.8) K/uL Eos # (Auto) 0.3 (0.0-0.7) K/uL Baso # (Auto) 0.1 (0.0-0.1) K/uL Nucleated RBC % 0.0 /100WBC Nucleated RBCs # 0 K/uL Sodium 135 L (136-145) mmol/L Potassium 3.8 (3.5-5.1) mmol/L Chloride 98 (98-107) mmol/L Carbon Dioxide 25.1 (21.0-32.0) mmol/L BUN 17 (7.0-18.0) mg/dL Creatinine 0.9 (0.6-1.0) mg/dL Est Cr Clr Drug Dosing 63.33 mL/min Estimated GFR (MDRD) > 60.0 ml/min Glucose 94 (74-106) mg/dL Calcium 9.5 (8.5-10.1) mg/dL Total Bilirubin 0.2 (0.2-1.0) mg/dL AST 9 L (15-37) IU/L ALT 25 (14-63) IU/L Alkaline Phosphatase 56 (46-116) U/L Total Protein 8.0 (6.4-8.2) g/dL Albumin 4.1 (3.4-5.0) g/dL Globulin 3.9 (2.6-4.0) g/dL Albumin/Globulin Ratio 1.1 (0.9-1.6) Lipase 170 (73-393) U/L Urine Color Urine Appearance Urine pH (5.0-8.0) Ur Specific [place] (1.001-1.035) Urine Protein (NEGATIVE) mg/dL Urine Glucose (UA) (NEGATIVE) mg/dL Urine Ketones (NEGATIVE) mg/dL Urine Occult Blood (NEGATIVE) Urine Nitrite (NEGATIVE) Urine Bilirubin (NEGATIVE) Urine Urobilinogen (<2.0) EU/dL Ur Leukocyte Esterase (NEGATIVE) Urine HCG, Qual (NEGATIVE) H. pylori IgG Antibody NEGATIVE (NEG) 07/23/18 07/23/18 Range/Units 11:07 11:07 WBC (4.0-11.0) K/uL RBC (4.30-5.90) M/uL Hgb (12.0-16.0) g/dL Hct (36.0-46.0) % MCV (80.0-98.0) fL MCH (27.0-32.0) pg MCHC (31.0-37.0) g/dL RDW Std Deviation (28.0-62.0) fl RDW Coeff of Felix (11.0-15.0) % Plt Count (150-400) K/uL MPV (7.40-12.00) fL Neut % (Auto) (48.0-80.0) % Lymph % (Auto) (16.0-40.0) % [place] % (Auto) (0.0-15.0) % Eos % (Auto) (0.0-7.0) % Baso % (Auto) (0.0-1.5) % Neut # (Auto) (1.4-5.7) K/uL Lymph # (Auto) (0.6-2.4) K/uL [place] # (Auto) (0.0-0.8) K/uL Eos # (Auto) (0.0-0.7) K/uL Baso # (Auto) (0.0-0.1) K/uL Nucleated RBC % /100WBC Nucleated RBCs # K/uL Sodium (136-145) mmol/L Potassium (3.5-5.1) mmol/L Chloride (98-107) mmol/L Carbon Dioxide (21.0-32.0) mmol/L BUN (7.0-18.0) mg/dL Creatinine (0.6-1.0) mg/dL Est Cr Clr Drug Dosing mL/min Estimated GFR (MDRD) ml/min Glucose (74-106) mg/dL Calcium (8.5-10.1) mg/dL Total Bilirubin (0.2-1.0) mg/dL AST (15-37) IU/L ALT (14-63) IU/L Alkaline Phosphatase (46-116) U/L Total Protein (6.4-8.2) g/dL Albumin (3.4-5.0) g/dL Globulin (2.6-4.0) g/dL Albumin/Globulin Ratio (0.9-1.6) Lipase (73-393) U/L Urine Color YELLOW Urine Appearance CLEAR Urine pH 7.0 (5.0-8.0) Ur Specific [place] <= 1.005 (1.001-1.035) Urine Protein NEGATIVE (NEGATIVE) mg/dL Urine Glucose (UA) NEGATIVE (NEGATIVE) mg/dL Urine Ketones NEGATIVE (NEGATIVE) mg/dL Urine Occult Blood NEGATIVE (NEGATIVE) Urine Nitrite NEGATIVE (NEGATIVE) Urine Bilirubin NEGATIVE (NEGATIVE) Urine Urobilinogen 0.2 (<2.0) EU/dL Ur Leukocyte Esterase NEGATIVE (NEGATIVE) Urine HCG, Qual NEGATIVE (NEGATIVE) H. pylori IgG Antibody (NEG) Meds: Medications Discontinued Medications Generic Name Dose Route Start Last Admin Trade Name Freq PRN Reason Stop Dose Admin Al Hydroxide/Mg Hydroxide 15 0 ml 07/23/18 10:51 07/23/18 11:00 ml/ Lidocaine HCl 5 ml PO 07/23/18 10:52 20 each ONETIME ONE Administration Sodium Chloride 1,000 mls @ 999 mls/hr 07/23/18 10:50 07/23/18 11:01 Normal Saline IV 07/23/18 11:50 999 mls/hr BOLUS ONE Administration Iopamidol 100 ml 07/23/18 12:30 07/23/18 12:33 Isovue Multipack-370 (76%) IVPUSH 07/23/18 12:31 100 ml ONETIME STA Administration Ketorolac Tromethamine 30 mg 07/23/18 10:50 07/23/18 11:00 Toradol IVPUSH 07/23/18 10:51 30 mg ONETIME ONE Administration Meclizine HCl 25 mg 07/23/18 10:58 07/23/18 11:06 Antivert PO 07/23/18 10:59 25 mg ONETIME ONE Administration Ondansetron HCl 4 mg 07/23/18 10:50 07/23/18 11:00 Zofran IVPUSH 07/23/18 10:51 4 mg ONETIME ONE Administration Departure - Departure Time of Disposition: 13:17 Disposition: Home, Self-Care 01 Clinical Impression: Abdominal pain Qualifiers: Abdominal location: generalized Qualified Code(s): R10.84 - Generalized abdominal pain - Discharge Information Referrals: PCP,None [Primary Care Provider] - Forms: ED Department Discharge Additional Instructions: The following information is given to patients seen in the emergency department who are being discharged to home. This information is to outline your options for follow-up care. We provide all patients seen in our emergency department with a follow-up referral. The need for follow-up, as well as the timing and circumstances, are variable depending upon the specifics of your emergency department visit. If you don't have a primary care physician on staff, we will provide you with a referral. We always advise you to contact your personal physician following an emergency department visit to inform them of the circumstance of the visit and for follow-up with them and/or the need for any referrals to a consulting specialist. The emergency department will also refer you to a specialist when appropriate. This referral assures that you have the opportunity for follow-up care with a specialist. All of these measure are taken in an effort to provide you with optimal care, which includes your follow-up. Under all circumstances we always encourage you to contact your private physician who remains a resource for coordinating your care. When calling for follow-up care, please make the office aware that this follow-up is from your recent emergency room visit. If for any reason you are refused follow-up, please contact the [facility] Emergency Department at and asked to speak to the emergency department charge nurse. [facility] [address] [place] [id number] [address] 1. Take medication as prescribed. You can alternate ibuprofen and Tylenol as directed for pain and discomfort. 2. Follow-up with her primary care provider and with your MRI as scheduled. 3. Return to the ED as needed and as discussed. - My Orders Last 24 Hours: My Active Orders 07/23/18 10:42 Glucose [Blood Glucose Check, Bedside] [RC] ONETIME 07/23/18 10:57 EKG Documentation Completion [RC] STAT 07/23/18 10:58 Orthostatic Vital Signs [RC] ASDIRECTED - Assessment/Plan Last 24 Hours: My Active Orders 07/23/18 10:42 Glucose [Blood Glucose Check, Bedside] [RC] ONETIME 07/23/18 10:57 EKG Documentation Completion [RC] STAT 07/23/18 10:58 Orthostatic Vital Signs [RC] ASDIRECTED
[2018-07-23] MEDS ORDERED: Meclizine 25 MG Tab PO ONE (10:58)
[2018-07-23 11:48] LABS: CHLORIDE,CL 98 mmol/L (98-107); SODIUM,NA 135 mmol/L (136-145)
[2018-07-23] MEDS ORDERED: Iopamidol 755 MG/ML 500 ML Multipack Bottle IVPUSH STA (12:30)
--- NOTE | 2018-07-23 13:13 | CT ---
CT of the abdomen and pelvis with contrast. HISTORY: Pain TECHNIQUE: Axial CT images were obtained of the abdomen and pelvis following administration of 100 mL of Isovue-370 in the right antecubital fossa without complication. Coronal and sagittal reconstructions obtained. FINDINGS: The lungs are clear without focal consolidation. No pleural effusion or pneumothorax. The liver, spleen, adrenal glands, and pancreas appear normal. Cholecystectomy clips are noted. No bulky retroperitoneal lymphadenopathy or abdominal ascites. The kidneys enhance and function symmetrically without evidence of obstructive uropathy. Nonobstructing 4 x 8 mm stone within the lower pole of the left kidney. Tiny bilateral renal cysts. The large and small bowel are normal in caliber without evidence of obstruction. No focal pericolonic inflammation or stranding. Appendix is normal. The urinary bladder is normal. No bulky retroperitoneal lymphadenopathy. No suspicious osseous abnormalities identified. IMPRESSION: 1. No acute findings noted within the abdomen or pelvis. 2. Nonobstructing left nephrolithiasis.
[2018-07-23 13:28] VITALS: BP 117/58
== END 2018-07-23 13:27 | disposition home or self-care (01) ==
LOC: MW.ED 10:23
DX: N20.0 Calculus of kidney (principal); I10 Essential (primary) hypertension; K21.9 Gastro-esophageal reflux disease without esophagitis; E11.9 Type 2 diabetes mellitus without complications; F41.9 Anxiety disorder, unspecified; F32.9 Major depressive disorder, single episode, unspecified; F17.210 Nicotine dependence, cigarettes, uncomplicated; Z91.018 Allergy to other foods; Z91.040 Latex allergy status; Z91.09 Other allergy status, other than to drugs and biological substances; Z88.8 Allergy status to other drugs, medicaments and biological substances; Z79.4 Long term (current) use of insulin; Z79.899 Other long term (current) drug therapy
CPT/HCPCS: 36415; 74177; 80053; 81003; 81025; 83690; 85025; 86677; 93005; 96361; 96374; 96375; 99284; A9270; J1885; J2405; J7040; Q9967

== ENCOUNTER 2019-12-26 09:40 | Emergency (ER) | payer BC, OTHER ==
[2019-12-26] MEDS ORDERED: Sodium Chloride 0.9% 1,000 ML IV ONE (10:01)
--- NOTE | 2019-12-26 10:05 | EDM.PDOC ---
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 She states this morning she was bearing down to have a bowel movement and felt a sudden sharp burning pain to her left low abdomen and a "pop". She had a normal bowel movement, not loose and no blood noted. Continues to have the left low pelvic pain. She is concerned she has a ruptured ovarian cyst, she does have a history of these. States she has had a partial hysterectomy although they left her ovaries. Patient denies any fever, chills, headache, change in vision, syncope or near syncope. Denies any chest pain, back pain, shortness of breath or cough. Denies any nausea, vomiting, diarrhea, constipation or dysuria. Denies any vaginal discharge, bleeding or concerns of STDs. Has not noted any blood in urine or stool. Patient has been eating and drinking appropriately. Review of systems: As per history of present illness and below otherwise all systems reviewed and negative. Past medical history: As per history of present illness and as reviewed below otherwise noncontributory. Surgical history: As per history of present illness and as reviewed below otherwise noncontributory. Social history: See social history for further information Family history: As per history of present illness and as reviewed below otherwise noncontributory. Physical exam: General: Well developed and well nourished 39 year old female. Alert and orientated x 3. Nontoxic in appearance and in no acute distress. Vital signs are stable and have been reviewed by me. Nursing notes were reviewed. HEENT: Atraumatic, normocephalic, pupils equal and reactive bilaterally, negative for conjunctival pallor or scleral icterus, mucous membranes moist, trachea midline. No drooling or trismus noted. No meningeal signs. No hot potato voice noted. Lungs: Clear to auscultation, breath sounds equal bilaterally, chest nontender. Normal work of breathing, no accessory muscles used. Heart: S1S2, regular rate and rhythm without overt murmur Abdomen: Soft, nondistended, left low pelvic pain. Negative for masses or hepatosplenomegaly. Negative for costovertebral tenderness. Skin: Intact, warm, dry. No lesions or rashes noted. Hematologic: No petechiae or purpra. Mucosa appropriate color and normal nail bed color and refill. Extremities: Atraumatic, moves all extremities per self without difficulty or deficits, negative for cords or calf pain. Neurovascular unremarkable. Neuro: Awake, alert, oriented. Cranial nerves II through XII unremarkable. Cerebellum unremarkable. Motor and sensory unremarkable throughout. Exam nonfocal. Psychiatric: Mood and affect are appropriate. Normal thought process. Answering questions appropriately. Notes: Lab work is unremarkable. The ultrasound shows no acute findings in the pelvis. Normal appearing right ovary. Nonvisualization of the left ovary. As the patient still continues to have some left low abdominal pain I will add a CT of the abdomen and pelvis for further evaluation. CT shows postsurgical changes of a cholecystectomy and hysterectomy. No definite abnormality is identified in the left lower quadrant. Several right renal cysts are noted. Diffuse fatty infiltration of the liver. Hepatomegaly. Patient's vital signs are stable and she does feel improved. I have spoken with the patient/caregiver and discussed today's findings, in addition to providing specific details for plan of care. Reassessment at the time of disposition demonstrates that the patient is in no acute distress. The patient has remained stable throughout the entire ED visit and is without objective evidence for acute process requiring urgent intervention or hospitalization. The patient is stable for discharge, counseling was provided and we discussed in great detail signs and symptoms that would prompt them to return to the Emergency Department. Medication, follow up and supportive care measures were reviewed and discussed. Voices understanding and is agreeable to plan of care. Denies any further questions or concerns at this time. Diagnostics: CBC, CMP, UA, Pelvic US, CT abd/pelvis Therapeutics: IV fluids, Morphine, Zofran Prescription: None Impression: Abdominal Pain, LLQ Plan: 1. Today your lab work, ultrasound and CT of abdomen/pelvis was within normal limits. 2. Alternate Tylenol and Ibuprofen as needed for pain management. 3. We encourage you to follow up with your primary care provider and/or recommended specialist in the next few days for re-evaluation and further care/management. If your symptoms should worsen, new symptoms develop or any of the signs and symptoms we discussed should arise please return to the emergency room or call 911 (if needed). Definitive disposition and diagnosis as appropriate pending reevaluation and review of above. llq Pain Score (Numeric/FACES): 9 - Related Data Allergies Allergy/AdvReac Type Severity Reaction Status Date / Time bacitracin Allergy Itching Verified 12/26/19 10:12 [From Triple Antibiotic] banana Allergy Itching Verified 12/26/19 10:12 hydrocortisone Allergy Itching Verified 12/26/19 10:12 latex Allergy "due to Verified 12/26/19 10:12 banana allergy" neomycin Allergy Itching Verified 12/26/19 10:12 [From Triple Antibiotic] polymyxin B Allergy Itching Verified 12/26/19 10:12 [From Triple Antibiotic] cats Allergy Mild Sneezing Uncoded 12/26/19 10:12 cloth bandaids Allergy Mild Rash Uncoded 12/26/19 10:12 fruit Allergy Mild scratchy Uncoded 12/26/19 10:12 throat seasonal allergies Allergy Mild Sneezing Uncoded 12/26/19 10:12 Home Meds: Home Meds Lisinopril 1 tab PO DAILY 06/11/16 [History] Magnesium 250 mg PO DAILY 03/25/17 [History] Gabapentin [Neurontin] 3 tab PO BEDTIME 04/07/17 [History] L.acidoph,Paracasei, B.lactis [Probiotic] 1 tab PO BEDTIME 04/07/17 [History] Sucralfate 1 gm PO BID 04/07/17 [History] Cyanocobalamin (Vitamin B-12) [Vitamin B-12] 500 mcg PO DAILY 10/11/17 [History] Ascorbic Acid [Vitamin C] 1 tab PO DAILY 07/23/18 [History] Pantoprazole [ProTONIX] 40 mg PO DAILY 07/23/18 [History] Venlafaxine [Effexor XR] 150 mg PO DAILY 07/23/18 [History] Fish Oil/[place]-3 Fatty Acids [Fish Oil 1,000 MG] 2 gm PO DAILY 12/26/19 [History] LORazepam [Ativan] mg PO ASDIRECTED PRN 12/26/19 [History] Past Medical History HEENT History: Reports: Impaired Vision, Other (See Below) Other HEENT History: wears glasses Cardiovascular History: Reports: Hypertension Respiratory History: Reports: Asthma, Sleep Apnea Other Respiratory History: asthma as a child, uses CPAP Gastrointestinal History: Reports: GERD Genitourinary History: Reports: Renal Calculus 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: 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 History: Reports: Fracture Neurological History: Reports: Migraines Psychiatric History: Reports: Anxiety, Depression Endocrine/Metabolic History: Reports: Diabetes, Type II, Obesity/BMI 30+ Hematologic History: Reports: None Immunologic History: Reports: None Oncologic (Cancer) History: Reports: None - Infectious Disease History Infectious Disease History: Reports: C-Difficile - Past Surgical History Head Surgeries/Procedures: Reports: None GI Surgical History: Reports: Cholecystectomy Female Surgical History: Reports: Section, Hysterectomy, Lithotripsy/ESWL 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 Surgical History: Reports: Other (See Below) Other 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 Surgeries/Procedures:: surgical tx for broken left wrist (external fixator) Oncologic Surgical History: Reports: None Social & Family History - Family History Family Medical History: Noncontributory - Caffeine Use Caffeine Use: Reports: Coffee Caffeine Use Comment: 2 cups daily ED ROS GENERAL - Review of Systems Review Of Systems: Comprehensive ROS is negative, except as noted in HPI. ED EXAM, GI/ABD - Physical Exam Exam: See Below (See dictation) Course - Vital Signs Last Recorded V/S: Last Vital Signs Temp 97.4 F 12/26/19 10:07 Pulse 55 L 12/26/19 11:44 Resp 16 12/26/19 11:44 BP 122/65 12/26/19 11:44 Pulse Ox 96 12/26/19 11:44 - Orders/Labs/Meds Orders: Active Orders 24 hr Category Date Time Status Abdomen Pelvis w Cont [CT] Stat Exams 12/26/19 11:40 Taken Labs: Laboratory Tests 12/26/19 12/26/19 12/26/19 Range/Units 10:05 10:05 10:05 WBC 8.99 (4.0-11.0) K/uL RBC 4.29 L (4.30-5.90) M/uL Hgb 12.9 (12.0-16.0) g/dL Hct 38.7 (36.0-46.0) % MCV 90.2 (80.0-98.0) fL MCH 30.1 (27.0-32.0) pg MCHC 33.3 (31.0-37.0) g/dL RDW Std Deviation 44.0 (28.0-62.0) fl RDW Coeff of Felix 13 (11.0-15.0) % Plt Count 329 (150-400) K/uL MPV 9.60 (7.40-12.00) fL Neut % (Auto) 46.8 L (48.0-80.0) % Lymph % (Auto) 40.5 H (16.0-40.0) % [place] % (Auto) 7.9 (0.0-15.0) % Eos % (Auto) 4.2 (0.0-7.0) % Baso % (Auto) 0.6 (0.0-1.5) % Neut # (Auto) 4.2 (1.4-5.7) K/uL Lymph # (Auto) 3.6 H (0.6-2.4) K/uL [place] # (Auto) 0.7 (0.0-0.8) K/uL Eos # (Auto) 0.4 (0.0-0.7) K/uL Baso # (Auto) 0.1 (0.0-0.1) K/uL Nucleated RBC % 0.0 /100WBC Nucleated RBCs # 0 K/uL Sodium (136-145) mmol/L Potassium (3.5-5.1) mmol/L Chloride (98-107) mmol/L Carbon Dioxide (21.0-32.0) mmol/L BUN (7.0-18.0) mg/dL Creatinine (0.6-1.0) mg/dL Est Cr Clr Drug Dosing mL/min Estimated GFR (MDRD) ml/min Glucose (74-106) mg/dL Calcium (8.5-10.1) mg/dL Total Bilirubin (0.2-1.0) mg/dL AST (15-37) IU/L ALT (14-63) IU/L Alkaline Phosphatase (46-116) U/L Total Protein (6.4-8.2) g/dL Albumin (3.4-5.0) g/dL Globulin (2.6-4.0) g/dL Albumin/Globulin Ratio (0.9-1.6) Urine Color YELLOW Urine Appearance CLEAR Urine pH 6.5 (5.0-8.0) Ur Specific [place] <= 1.005 (1.001-1.035) Urine Protein NEGATIVE (NEGATIVE) mg/dL Urine Glucose (UA) NEGATIVE (NEGATIVE) mg/dL Urine Ketones NEGATIVE (NEGATIVE) mg/dL Urine Occult Blood NEGATIVE (NEGATIVE) Urine Nitrite NEGATIVE (NEGATIVE) Urine Bilirubin NEGATIVE (NEGATIVE) Urine Urobilinogen 0.2 (<2.0) EU/dL Ur Leukocyte Esterase NEGATIVE (NEGATIVE) Urine HCG, Qual NEGATIVE (NEGATIVE) 12/26/19 Range/Units 10:05 WBC (4.0-11.0) K/uL RBC (4.30-5.90) M/uL Hgb (12.0-16.0) g/dL Hct (36.0-46.0) % MCV (80.0-98.0) fL MCH (27.0-32.0) pg MCHC (31.0-37.0) g/dL RDW Std Deviation (28.0-62.0) fl RDW Coeff of Felix (11.0-15.0) % Plt Count (150-400) K/uL MPV (7.40-12.00) fL Neut % (Auto) (48.0-80.0) % Lymph % (Auto) (16.0-40.0) % [place] % (Auto) (0.0-15.0) % Eos % (Auto) (0.0-7.0) % Baso % (Auto) (0.0-1.5) % Neut # (Auto) (1.4-5.7) K/uL Lymph # (Auto) (0.6-2.4) K/uL [place] # (Auto) (0.0-0.8) K/uL Eos # (Auto) (0.0-0.7) K/uL Baso # (Auto) (0.0-0.1) K/uL Nucleated RBC % /100WBC Nucleated RBCs # K/uL Sodium 136 (136-145) mmol/L Potassium 4.0 (3.5-5.1) mmol/L Chloride 100 (98-107) mmol/L Carbon Dioxide 24.7 (21.0-32.0) mmol/L BUN 11 (7.0-18.0) mg/dL Creatinine 0.7 (0.6-1.0) mg/dL Est Cr Clr Drug Dosing 79.81 mL/min Estimated GFR (MDRD) > 60.0 ml/min Glucose 119 H (74-106) mg/dL Calcium 9.0 (8.5-10.1) mg/dL Total Bilirubin 0.3 (0.2-1.0) mg/dL AST 16 (15-37) IU/L ALT 32 (14-63) IU/L Alkaline Phosphatase 56 (46-116) U/L Total Protein 7.8 (6.4-8.2) g/dL Albumin 4.3 (3.4-5.0) g/dL Globulin 3.5 (2.6-4.0) g/dL Albumin/Globulin Ratio 1.2 (0.9-1.6) Urine Color Urine Appearance Urine pH (5.0-8.0) Ur Specific [place] (1.001-1.035) Urine Protein (NEGATIVE) mg/dL Urine Glucose (UA) (NEGATIVE) mg/dL Urine Ketones (NEGATIVE) mg/dL Urine Occult Blood (NEGATIVE) Urine Nitrite (NEGATIVE) Urine Bilirubin (NEGATIVE) Urine Urobilinogen (<2.0) EU/dL Ur Leukocyte Esterase (NEGATIVE) Urine HCG, Qual (NEGATIVE) Meds: Medications Discontinued Medications Generic Name Dose Route Start Last Admin Trade Name Freq PRN Reason Stop Dose Admin Sodium Chloride 1,000 mls @ 999 mls/hr 12/26/19 10:01 12/26/19 10:11 Normal Saline IV 12/26/19 11:01 999 mls/hr STAT ONE Administration Iopamidol 100 ml 12/26/19 12:20 12/26/19 12:21 Isovue Multipack-370 (76%) IVPUSH 12/26/19 12:21 100 ml ONETIME ONE Administration Morphine Sulfate 4 mg 12/26/19 10:15 12/26/19 10:20 Morphine IVPUSH 12/26/19 10:16 4 mg ONETIME ONE Administration Ondansetron HCl 4 mg 12/26/19 10:15 12/26/19 10:20 Zofran IVPUSH 12/26/19 10:16 4 mg ONETIME ONE Administration Departure - Departure Time of Disposition: 12:50 Disposition: Home, Self-Care 01 Clinical Impression: Abdominal pain Qualifiers: Abdominal location: left lower quadrant Qualified Code(s): R10.32 - Left lower quadrant pain - Discharge Information Instructions: Abdominal Pain, Adult, [id number] Referrals: Rivas Kunz [Primary Care Provider] - Forms: ED Department Discharge Additional Instructions: The following information is given to patients seen in the emergency department who are being discharged to home. This information is to outline your options for follow-up care. We provide all patients seen in our emergency department with a follow-up referral. The need for follow-up, as well as the timing and circumstances, are variable depending upon the specifics of your emergency department visit. If you don't have a primary care physician on staff, we will provide you with a referral. We always advise you to contact your personal physician following an emergency department visit to inform them of the circumstance of the visit and for follow-up with them and/or the need for any referrals to a consulting specialist. The emergency department will also refer you to a specialist when appropriate. This referral assures that you have the opportunity for follow-up care with a specialist. All of these measure are taken in an effort to provide you with optimal care, which includes your follow-up. Under all circumstances we always encourage you to contact your private physician who remains a resource for coordinating your care. When calling for follow-up care, please make the office aware that this follow-up is from your recent emergency room visit. If for any reason you are refused follow-up, please contact the [facility] Emergency Department at and asked to speak to the emergency department charge nurse. [facility] Primary Care [address] [place] [id number] [id number] Thank you for choosing the [facility] emergency department in [place] for your medical needs today. It was a pleasure caring for you. Today you were seen in the emergency department for abdominal pain. 1. Today your lab work, ultrasound and CT of abdomen/pelvis was within normal limits. 2. Alternate Tylenol and Ibuprofen as needed for pain management. 3. We encourage you to follow up with your primary care provider and/or recommended specialist in the next few days for re-evaluation and further care/management. If your symptoms should worsen, new symptoms develop or any of the signs and symptoms we discussed should arise please return to the emergency room or call 911 (if needed). Sepsis Event Note (ED) - Focused Exam Vital Signs: Vital Signs Temp Pulse Resp BP Pulse Ox 12/26/19 11:44 55 L 16 122/65 96 12/26/19 10:07 97.4 F 74 16 147/85 H 95 - My Orders Last 24 Hours: My Active Orders 12/26/19 11:40 Abdomen Pelvis w Cont [CT] Stat - Assessment/Plan Last 24 Hours: My Active Orders 12/26/19 11:40 Abdomen Pelvis w Cont [CT] Stat
[2019-12-26] MEDS ORDERED: Morphine 4 MG/ML Syringe IVPUSH ONE (10:15)
[2019-12-26] MEDS ORDERED: Ondansetron 4 MG/2 ML SDV IVPUSH ONE (10:15)
[2019-12-26 10:32] LABS: BLOOD UREA NITROGEN,BUN 11 mg/dL (7.0-18.0); CARBON DIOXIDE,CO2 24.7 mmol/L (21.0-32.0); CHLORIDE,CL 100 mmol/L (98-107); GLUCOSE RANDOM 119 mg/dL (74-106); SODIUM,NA 136 mmol/L (136-145)
--- NOTE | 2019-12-26 12:18 | US ---
INDICATION: Left lower quadrant abdominal pain. TECHNIQUE: Transvaginal sonographic evaluation of the female pelvis. COMPARISON: None. FINDINGS: The uterus is surgically absent. - The right ovary is sonographically normal. The right ovary measures 3.0 x 1.8 x 2.9 cm. Normal appearing follicles versus in the right ovary. Normal vascular waveforms in the right ovary. The left ovary is not identified. No suspicious pelvic mass. No significant free fluid in the pelvis. IMPRESSION: 1. No acute findings in the pelvis. 2. Status post hysterectomy. 3. Normal appearing right ovary. 4. Nonvisualization of the left ovary. Dictated by Ahsan Nichols MD @ 12/26/2019 12:16:47 PM Dictated by: Ahsan Nichols MD @ 12/26/2019 12:16:54 (Electronically Signed)
[2019-12-26] MEDS ORDERED: Iopamidol 755 MG/ML 500 ML Multipack Bottle IVPUSH ONE (12:20)
--- NOTE | 2019-12-26 12:49 | CT ---
Indication: Left lower quadrant pain. History of hysterectomy. Technique: Multiple contiguous axial images were obtained from the lung bases to the pubis after the intravenous administration of 100 milliliters Isovue 370. Please note that all CT scans at this facility use dose modulation, iterative reconstruction, and/or weight-based dosing when appropriate to reduce radiation dose to as low as reasonably achievable. Comparison: July 23, 2018. Findings: Left basilar atelectasis is identified. The heart is normal in size. No pericardial effusion is identified. Mild diffuse fatty infiltration of the liver is identified. No intrahepatic biliary ductal dilatation is identified. No intrahepatic masses are identified. The spleen, pancreas, adrenals, and kidneys are normal. No gallbladder is identified, consistent with previous changes of a cholecystectomy. A small right renal cyst is identified. Several tiny low-attenuation lesions are identified within the right kidney, most likely representing additional cysts. The liver measures 21 centimeters maximum dimension, which is enlarged. In the pelvis, questionable thickening of the wall the urinary bladder is identified, which can be seen with cystitis. No uterus is identified, consistent with patient`s known history of hysterectomy. No free air free fluid is identified within the abdomen or pelvis. The small and large bowel are normal in caliber. The aorta is normal in caliber. Degenerative changes of the spine are identified. No lytic or blastic lesions are identified. Minimal diverticulosis is identified. There is no evidence of diverticulitis. Impression: Postsurgical changes of a cholecystectomy and hysterectomy. No definite abnormality identified in the left lower quadrant. Hepatomegaly. Diffuse fatty infiltration of the liver. Several right renal cysts. Please note that all CT scans at this facility use dose modulation, iterative reconstruction, and/or weight-based dosing when appropriate to reduce radiation dose to as low as reasonably achievable. Dictated by Berenice Vanessa MD @ Dec 26 2019 12:43PM Signed by Dr. Berenice Vanessa @ Dec 26 2019 12:47PM
[2019-12-26 15:57] VITALS: BP 102/51; PULSE 58
== END 2019-12-26 13:00 | disposition home or self-care (01) ==
LOC: MW.ED 09:40
DX: R10.32 Left lower quadrant pain (principal); I10 Essential (primary) hypertension; K21.9 Gastro-esophageal reflux disease without esophagitis; J45.909 Unspecified asthma, uncomplicated; F41.9 Anxiety disorder, unspecified; F32.9 Major depressive disorder, single episode, unspecified; E11.9 Type 2 diabetes mellitus without complications; E66.9 Obesity, unspecified; Z68.41 Body mass index [BMI] 40.0-44.9, adult; Z90.49 Acquired absence of other specified parts of digestive tract; Z90.710 Acquired absence of both cervix and uterus; Z98.890 Other specified postprocedural states; Z88.1 Allergy status to other antibiotic agents; Z88.8 Allergy status to other drugs, medicaments and biological substances; Z91.018 Allergy to other foods; Z91.040 Latex allergy status; Z91.048 Other nonmedicinal substance allergy status; Z79.899 Other long term (current) drug therapy
CPT/HCPCS: 36415; 74177; 76857; 80053; 81003; 81025; 85025; 96361; 96374; 96375; 99284; J2270; J2405; J7030; Q9967; 99283

== ENCOUNTER 2020-12-16 23:54 | Emergency (ER) | payer BC ==
[2020-12-17 00:24] VITALS: BP 136/88; PULSE 69
--- NOTE | 2020-12-17 02:12 | EDM.PDOC ---
ED HPI GENERAL MEDICAL PROBLEM - General Chief Complaint: General Stated Complaint: COVID SYMPTOMS Time Seen by Provider: 12/17/20 02:09 - History of Present Illness INITIAL COMMENTS - FREE TEXT/NARRATIVE: HISTORY AND PHYSICAL: History of present illness: This is a 40-year-old female who is had coronavirus in the past who presents ER today with concerns of coronavirus. Patient works at the [employer]. Patient denies any cough but reports that she has had fevers, diarrhea, headache, rhinorrhea, nasal congestion for 1 to 2 days. Patient denies any dysuria, frequency, urgency. Patient reports some mild midepigastric abdominal discomfort. Patient reports that she been tolerating p.o. solids and liquids well. Patient reports that she has been working is requesting a work note because of her symptoms. Review of systems: As per history of present illness and below otherwise all systems reviewed and negative. Past medical history: As per history of present illness and as reviewed below otherwise noncontributory. Surgical history: As per history of present illness and as reviewed below otherwise noncontributory. Social history: No reported history of drug abuse. Family history: As per history of present illness and as reviewed below otherwise noncontributory. Physical exam: This patient was seen and evaluated during the 2019 SARS-CoV-2 novel coronavirus pandemic period. Community viral transmission is ongoing at time of this encounter and the emergency department is operating under pandemic response procedures. Constitutional: Patient is oriented to person, place, and time. Appears well-developed and well-nourished. No distress. HEENT: Moist mucous membranes Head: Normocephalic and atraumatic Eyes: Right eye exhibits no discharge. Left eye exhibits no discharge. No scleral icterus Neck: Normal range of motion. No tracheal deviation present. Cardiovascular: Normal rate and regular rhythm. Pulmonary: Effort normal, no respiratory distress. Abdominal: No distention 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: Normal range of motion Neurologic: Alert and oriented to person, place and time. Skin: [place], warm and dry. Psychiatric: Normal mood and affect. Behavior is normal. Judgment and thought content normal. Nursing note and vital signs have been reviewed Diagnostics: Covid negative Therapeutics: [] Assessment and plan: 40-year-old female presents ER today with signs and symptoms concerning for coronavirus. Patient's coronavirus test is negative here in the ED. Patient has had coronavirus in the past. Patient's presentation is likely consistent with a viral infection. Patient will be discharged home with a work note and instructions for ibuprofen and Tylenol as needed. Reassessment at the time of disposition demonstrates that the patient is in no acute distress. The patient has remained stable throughout the entire ED visit and is without objective evidence for acute process requiring urgent intervention or hospitalization. The patient is stable for discharge, counseling is provided as documented above, discussed symptomatic treatment and specific conditions for return. I have spoken with the patient/caregiver and discussed todays findings, in addition to providing specific details for the plan of care. Questions are answered and there is agreement with the plan. Definitive disposition and diagnosis as appropriate pending reevaluation and review of above. body aches Pain Score (Numeric/FACES): 5 - Related Data Allergies Allergy/AdvReac Type Severity Reaction Status Date / Time bacitracin Allergy Itching Verified 12/26/19 10:12 [From Triple Antibiotic] banana Allergy Itching Verified 12/26/19 10:12 hydrocortisone Allergy Itching Verified 12/26/19 10:12 latex Allergy "due to Verified 12/26/19 10:12 banana allergy" neomycin Allergy Itching Verified 12/26/19 10:12 [From Triple Antibiotic] polymyxin B Allergy Itching Verified 12/26/19 10:12 [From Triple Antibiotic] cats Allergy Mild Sneezing Uncoded 12/26/19 10:12 cloth bandaids Allergy Mild Rash Uncoded 12/26/19 10:12 fruit Allergy Mild scratchy Uncoded 12/26/19 10:12 throat seasonal allergies Allergy Mild Sneezing Uncoded 12/26/19 10:12 Home Meds: Home Meds Lisinopril 1 tab PO DAILY 06/11/16 [History] Magnesium 250 mg PO DAILY 03/25/17 [History] Gabapentin [Neurontin] 3 tab PO BEDTIME 04/07/17 [History] L.acidoph,Paracasei, B.lactis [Probiotic] 1 tab PO BEDTIME 04/07/17 [History] Sucralfate 1 gm PO BID 04/07/17 [History] Cyanocobalamin (Vitamin B-12) [Vitamin B-12] 500 mcg PO DAILY 10/11/17 [History] Ascorbic Acid [Vitamin C] 1 tab PO DAILY 07/23/18 [History] Pantoprazole [ProTONIX] 40 mg PO DAILY 07/23/18 [History] Venlafaxine [Effexor XR] 150 mg PO DAILY 07/23/18 [History] Fish Oil/[place]-3 Fatty Acids [Fish Oil 1,000 MG] 2 gm PO DAILY 12/26/19 [History] LORazepam [Ativan] mg PO ASDIRECTED PRN 12/26/19 [History] Past Medical History HEENT History: Reports: Impaired Vision, Other (See Below) Other HEENT History: wears glasses Cardiovascular History: Reports: Hypertension Respiratory History: Reports: Asthma, Sleep Apnea Other Respiratory History: asthma as a child, uses CPAP Gastrointestinal History: Reports: GERD Genitourinary History: Reports: Renal Calculus 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: 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 History: Reports: Fracture Neurological History: Reports: Migraines Psychiatric History: Reports: Anxiety, Depression Endocrine/Metabolic History: Reports: Diabetes, Type II, Obesity/BMI 30+ Hematologic History: Reports: None Immunologic History: Reports: None Oncologic (Cancer) History: Reports: None - Infectious Disease History Infectious Disease History: Reports: C-Difficile - Past Surgical History Head Surgeries/Procedures: Reports: None GI Surgical History: Reports: Cholecystectomy Female Surgical History: Reports: Section, Hysterectomy, Lithotripsy/ESWL 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 Surgical History: Reports: Other (See Below) Other 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 Surgeries/Procedures:: surgical tx for broken left wrist (external fixator) Oncologic Surgical History: Reports: None Social & Family History - Family History Family Medical History: No Pertinent Family History - Tobacco Use Tobacco Use Status *Q: Light Tobacco User Years of Tobacco use: 20 Packs/Tins Daily: 1 - Caffeine Use Caffeine Use: Reports: Coffee Caffeine Use Comment: 2 cups daily - Recreational Drug Use Recreational Drug Use: Yes ED ROS GENERAL - Review of Systems Review Of Systems: See Below ED EXAM, GENERAL - Physical Exam Exam: See Below Course - Vital Signs Last Recorded V/S: Last Vital Signs Temp 97.0 F 12/17/20 00:20 Pulse 69 12/17/20 00:20 Resp 18 12/17/20 00:20 BP 136/88 12/17/20 00:20 Pulse Ox 99 12/17/20 00:20 - Orders/Labs/Meds Labs: Laboratory Tests 12/17/20 Range/Units 00:39 SARS-CoV-2 RNA ([place]) NEGATIVE (NEGATIVE) Departure - Departure Time of Disposition: 02:11 Disposition: Home, Self-Care 01 Condition: Good Clinical Impression: Viral illness - Discharge Information Instructions: Viral Illness, Adult Referrals: Rivas Kunz [Primary Care Provider] - Additional Instructions: He was seen and evaluated in the ER today secondary to signs and symptoms concerning for coronavirus. Your coronavirus test is negative today in the emergency room. Your symptoms appear to be consistent with a viral illness. We recommend lots of liquids, Tylenol as needed for fever, plenty of rest. Please make an appointment see your family doctor within the week for reevaluation. Please return to the ER if you develop any new or concerning symptoms. The following information is given to patients seen in the emergency department who are being discharged to home. This information is to outline your options for follow-up care. We provide all patients seen in our emergency department with a follow-up referral. The need for follow-up, as well as the timing and circumstances, are variable depending upon the specifics of your emergency department visit. If you don't have a primary care physician on staff, we will provide you with a referral. We always advise you to contact your personal physician following an emergency department visit to inform them of the circumstance of the visit and for follow-up with them and/or the need for any referrals to a consulting specialist. The emergency department will also refer you to a specialist when appropriate. This referral assures that you have the opportunity for follow-up care with a specialist. All of these measure are taken in an effort to provide you with optimal care, which includes your follow-up. Under all circumstances we always encourage you to contact your private physician who remains a resource for coordinating your care. When calling for follow-up care, please make the office aware that this follow-up is from your recent emergency room visit. If for any reason you are refused follow-up, please contact the [facility] Emergency Department at and asked to speak to the emergency department charge nurse. [facility] [address] [place] [id number] [id number] Sepsis Event Note (ED) - Evaluation Sepsis Screening Result: No Definite Risk - Focused Exam Vital Signs: Vital Signs Temp Pulse Resp BP Pulse Ox 12/17/20 00:20 97.0 F 69 18 136/88 99
== END 2020-12-17 02:24 | disposition home or self-care (01) ==
LOC: MW.ED 23:54
DX: B34.9 Viral infection, unspecified (principal); I10 Essential (primary) hypertension; J45.909 Unspecified asthma, uncomplicated; K21.9 Gastro-esophageal reflux disease without esophagitis; E11.9 Type 2 diabetes mellitus without complications; E66.9 Obesity, unspecified; Z68.39 Body mass index [BMI] 39.0-39.9, adult; Z72.0 Tobacco use; Z88.1 Allergy status to other antibiotic agents; Z91.018 Allergy to other foods; Z88.8 Allergy status to other drugs, medicaments and biological substances; Z91.040 Latex allergy status; Z91.048 Other nonmedicinal substance allergy status; Z79.899 Other long term (current) drug therapy; Z20.822 Contact with and (suspected) exposure to COVID-19
CPT/HCPCS: 99284; U0002

== ENCOUNTER 2021-03-02 21:47 | Emergency (ER) | payer BC ==
--- NOTE | 2021-03-02 22:25 | EDM.PDOC ---
ED HPI GENERAL MEDICAL PROBLEM - General Chief Complaint: Lower Extremity Injury/Pain Stated Complaint: SLIPPED ON ICE Time Seen by Provider: 03/02/21 22:12 Source of Information: Reports: Patient History Limitations: Reports: No Limitations - History of Present Illness INITIAL COMMENTS - FREE TEXT/NARRATIVE: Patient is a 40-year-old female history of diabetes brought in today after slip and fall. She was getting to a truck when she missed her step and fell onto her back. She has pain to the right shoulder right hip and lower back. Denies any head or have any LOC denies any neck pain. Took some Motrin earlier for the pain without much relief. Movement or palpation makes the pain worse. She has no other medical complaints. Right Hip Pain Score (Numeric/FACES): 9 - Related Data Allergies Allergy/AdvReac Type Severity Reaction Status Date / Time bacitracin Allergy Itching Verified 12/26/19 10:12 [From Triple Antibiotic] banana Allergy Itching Verified 12/26/19 10:12 hydrocortisone Allergy Itching Verified 12/26/19 10:12 latex Allergy "due to Verified 12/26/19 10:12 banana allergy" neomycin Allergy Itching Verified 12/26/19 10:12 [From Triple Antibiotic] polymyxin B Allergy Itching Verified 12/26/19 10:12 [From Triple Antibiotic] cats Allergy Mild Sneezing Uncoded 12/26/19 10:12 cloth bandaids Allergy Mild Rash Uncoded 12/26/19 10:12 fruit Allergy Mild scratchy Uncoded 12/26/19 10:12 throat seasonal allergies Allergy Mild Sneezing Uncoded 12/26/19 10:12 Home Meds: Home Meds Lisinopril 1 tab PO DAILY 06/11/16 [History] Magnesium 250 mg PO DAILY 03/25/17 [History] Gabapentin [Neurontin] 3 tab PO BEDTIME 04/07/17 [History] L.acidoph,Paracasei, B.lactis [Probiotic] 1 tab PO BEDTIME 04/07/17 [History] Sucralfate 1 gm PO BID 04/07/17 [History] Cyanocobalamin (Vitamin B-12) [Vitamin B-12] 500 mcg PO DAILY 10/11/17 [History] Ascorbic Acid [Vitamin C] 1 tab PO DAILY 07/23/18 [History] Pantoprazole [ProTONIX] 40 mg PO DAILY 07/23/18 [History] Venlafaxine [Effexor XR] 150 mg PO DAILY 07/23/18 [History] Fish Oil/[place]-3 Fatty Acids [Fish Oil 1,000 MG] 2 gm PO DAILY 12/26/19 [History] LORazepam [Ativan] mg PO ASDIRECTED PRN 12/26/19 [History] Past Medical History HEENT History: Reports: Impaired Vision, Other (See Below) Other HEENT History: wears glasses Cardiovascular History: Reports: Hypertension Respiratory History: Reports: Asthma, Sleep Apnea Other Respiratory History: asthma as a child, uses CPAP Gastrointestinal History: Reports: GERD Genitourinary History: Reports: Renal Calculus 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: 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 History: Reports: Fracture Neurological History: Reports: Migraines Psychiatric History: Reports: Anxiety, Depression Endocrine/Metabolic History: Reports: Diabetes, Type II, Obesity/BMI 30+ Hematologic History: Reports: None Immunologic History: Reports: None Oncologic (Cancer) History: Reports: None - Infectious Disease History Infectious Disease History: Reports: C-Difficile - Past Surgical History Head Surgeries/Procedures: Reports: None GI Surgical History: Reports: Cholecystectomy Female Surgical History: Reports: Section, Hysterectomy, Lithotripsy/ESWL 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 Surgical History: Reports: Other (See Below) Other 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 Surgeries/Procedures:: surgical tx for broken left wrist (external fixator) Oncologic Surgical History: Reports: None Social & Family History - Family History Family Medical History: No Pertinent Family History - Tobacco Use Tobacco Use Status *Q: Never Tobacco User Second Hand Smoke Exposure: No - Caffeine Use Caffeine Use: Reports: Coffee Caffeine Use Comment: 2 cups daily - Recreational Drug Use Recreational Drug Use: Yes Drug Use in Last 12 Months: Yes Recreational Drug Type: Reports: Marijuana/Hashish Recreational Drug Use Frequency: Socially Review of Systems - Review of Systems Review Of Systems: See Below Constitutional: Reports: No Symptoms Eyes: Reports: No Symptoms Ears: Reports: No Symptoms Nose: Reports: No Symptoms Mouth/Throat: Reports: No Symptoms Respiratory: Reports: No Symptoms Cardiovascular: Reports: No Symptoms GI/Abdominal: Reports: No Symptoms Genitourinary: Reports: No Symptoms 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: Reports: No Symptoms Skin: Reports: No Symptoms Neurological: Reports: No Symptoms Psychiatric: Reports: No Symptoms ED EXAM, GENERAL - Physical Exam Exam: See Below Exam Limited By: No Limitations General Appearance: Alert, WD/WN, No Apparent Distress Eye Exam: Bilateral Eye: EOMI, PERRL Nose: Normal Inspection Throat/Mouth: Normal Inspection Head: Atraumatic, Normocephalic Neck: Normal Inspection Respiratory/Chest: No Respiratory Distress, Lungs Clear, Normal Breath Sounds Cardiovascular: Normal Peripheral Pulses, Regular Rate, Rhythm GI/Abdominal: Normal Bowel Sounds, Soft, Non-Tender Back Exam: Normal Inspection Extremities: Normal Inspection, Normal Range of Motion. No: Non-Tender (Rt Hip and shoulder but good range of motion) Neurological: Alert, Oriented Course - Vital Signs Last Recorded V/S: Last Vital Signs Temp 97.1 F 03/02/21 22:01 Pulse 68 03/02/21 22:01 Resp 18 03/02/21 22:01 BP 146/84 H 03/02/21 22:01 Pulse Ox 99 03/02/21 22:01 - Orders/Labs/Meds Meds: Medications Discontinued Medications Generic Name Dose Route Start Last Admin Trade Name Koki PRN Reason Stop Dose Admin Ketorolac Tromethamine 30 mg 03/02/21 22:56 03/02/21 23:09 Ketorolac 30 Mg/Ml Sdv IM 03/02/21 22:57 30 mg ONETIME ONE Administration - Re-Assessments/Exams Free Text/Narrative Re-Assessment/Exam: 03/02/21 23:38 Patient x-rays are negative patient patient be sent home with pain control follow-up with PMD. Departure - Departure Time of Disposition: 23:38 Disposition: Home, Self-Care 01 Condition: Good Clinical Impression: Fall, Shoulder pain, Back pain - Discharge Information *PRESCRIPTION DRUG MONITORING PROGRAM REVIEWED*: Not Applicable *COPY OF PRESCRIPTION DRUG MONITORING REPORT IN PATIENT [place]: Not Applicable Instructions: Acute Back Pain, Adult Referrals: Rivas Kunz [Primary Care Provider] - Forms: ED Department Discharge Additional Instructions: You were seen today for a slip and fall. We did imaging and they are all negative for any fractures. We recommend you continue to take Tylenol or Motrin as needed for pain at home if you have any other concerning signs or symptoms please return to the ED. The following information is given to patients seen in the emergency department who are being discharged to home. This information is to outline your options for follow-up care. We provide all patients seen in our emergency department with a follow-up referral. The need for follow-up, as well as the timing and circumstances, are variable depending upon the specifics of your emergency department visit. If you don't have a primary care physician on staff, we will provide you with a referral. We always advise you to contact your personal physician following an emergency department visit to inform them of the circumstance of the visit and for follow-up with them and/or the need for any referrals to a consulting specialist. The emergency department will also refer you to a specialist when appropriate. This referral assures that you have the opportunity for follow-up care with a specialist. All of these measure are taken in an effort to provide you with optimal care, which includes your follow-up. Under all circumstances we always encourage you to contact your private physician who remains a resource for coordinating your care. When calling for follow-up care, please make the office aware that this follow-up is from your recent emergency room visit. If for any reason you are refused follow-up, please contact the [facility] Emergency Department at and asked to speak to the emergency department charge nurse. Please follow up with your primary care physician. If you do not have a primary care physician, see below: [facility] [address] [place] [id number] [facility] [address] [place] [id number] Sepsis Event Note (ED) - Evaluation Sepsis Screening Result: No Definite Risk - Focused Exam Vital Signs: Vital Signs Temp Pulse Resp BP Pulse Ox 03/02/21 22:01 97.1 F 68 18 146/84 H 99 - Assessment/Plan Plan: Patient is a 40-year-old female presents today after a slip and fall onto her back. Patient has pain in the right shoulder hip and lower back. Will obtain imaging and reassess patient.
[2021-03-02] MEDS ORDERED: Ketorolac 30 MG/ML SDV IM ONE (22:56)
--- NOTE | 2021-03-02 23:13 | CR ---
Indication: Fall on ice. Technique: Two views of the right hip while standing. Comparison: None Findings: The femoral head is seated within the acetabulum. Mild to moderate degenerative changes of the right hip are identified. No fracture or subluxation is identified. Impression: No fracture. Dictated by Berenice Vanessa MD @ 03/02/2021 11:11:55 PM (Electronically Signed)
--- NOTE | 2021-03-02 23:13 | CR ---
Indication: Fall on ice. Technique: Three standing views of the lumbar spine. Comparison: None Findings: Levoscoliosis of the lumbar spine is identified. The vertebral body heights are well maintained. Mild intervertebral disc space narrowing is identified throughout, greatest at L5-S1. Facet joint arthropathy of the lumbar spine is identified. Impression: Degenerative change. No acute fracture. Dictated by Berenice Vanessa MD @ 03/02/2021 11:12:42 PM (Electronically Signed)
--- NOTE | 2021-03-02 23:15 | CR ---
Indication: Fall. Technique: Two views of the right shoulder. Comparison: None Findings: The humeral head is seated within the glenoid. No acute fracture or subluxation is identified. Impression: No acute fracture Dictated by Berenice Vanessa MD @ 03/02/2021 11:13:19 PM (Electronically Signed)
[2021-03-02 23:52] VITALS: BP 155/88; PULSE 62
== END 2021-03-02 23:52 | disposition home or self-care (01) ==
LOC: MW.ED 21:47
DX: M25.511 Pain in right shoulder (principal); M54.50 Low back pain, unspecified; M25.551 Pain in right hip; I10 Essential (primary) hypertension; E11.9 Type 2 diabetes mellitus without complications; E66.9 Obesity, unspecified; K21.9 Gastro-esophageal reflux disease without esophagitis; Z68.41 Body mass index [BMI] 40.0-44.9, adult; Z91.040 Latex allergy status; Z91.018 Allergy to other foods; Z88.5 Allergy status to narcotic agent; Z88.1 Allergy status to other antibiotic agents; Z91.09 Other allergy status, other than to drugs and biological substances; Z79.899 Other long term (current) drug therapy
CPT/HCPCS: 72100; 73030; 73502; 96372; 99283; J1885

== ENCOUNTER 2022-03-01 17:54 | Emergency (ER) | payer BC, OTHER ==
[2022-03-01] MEDS ORDERED: Sodium Chloride 0.9% 10 ML Syringe FLUSH PRN (18:06)
[2022-03-01] MEDS ORDERED: Sodium Chloride 0.9% 2.5 ML Syringe FLUSH PRN (18:06)
[2022-03-01] MEDS ORDERED: Ondansetron 4 MG/2 ML SDV IVPUSH ONE (18:06)
[2022-03-01] MEDS ORDERED: Famotidine 20 MG/2 ML SDV IVPUSH ONE (18:06)
[2022-03-01] MEDS ORDERED: Morphine 4 MG/ML Syringe IVPUSH ONE (18:06)
[2022-03-01 18:39] LABS: CARBON DIOXIDE,CO2 23.8 mmol/L (21.0-32.0); POTASSIUM,K 3.9 mmol/L (3.5-5.1)
[2022-03-01] MEDS ORDERED: Iopamidol 755 MG/ML 500 ML Multipack Bottle IVPUSH ONE (19:01)
[2022-03-01 19:07] LABS: CORONAVIRUS COVID-19 NAA NEGATIVE (NEGATIVE); INFLUENZA A NAA NEGATIVE (NEGATIVE); INFLUENZA B NAA NEGATIVE (NEGATIVE); RESPIRATORY SYNCYTIAL VIR NAA NEGATIVE (NEGATIVE)
[2022-03-01 19:30] LABS: HEMOGLOBIN A1C 9.1 %
[2022-03-01] MEDS ORDERED: Sodium Chloride 0.9% 1,000 ML IV ONE (19:57)
[2022-03-01 21:37] VITALS: BP 152/78; PULSE 74
== END 2022-03-01 21:38 | disposition home or self-care (01) ==
LOC: MW.ED 17:54
DX: R07.2 Precordial pain (principal); E11.65 Type 2 diabetes mellitus with hyperglycemia; E86.0 Dehydration; E66.9 Obesity, unspecified; Z68.41 Body mass index [BMI] 40.0-44.9, adult; Z88.1 Allergy status to other antibiotic agents; Z91.018 Allergy to other foods; Z91.040 Latex allergy status; Z91.048 Other nonmedicinal substance allergy status; Z79.899 Other long term (current) drug therapy; Z90.49 Acquired absence of other specified parts of digestive tract; Z90.710 Acquired absence of both cervix and uterus; Z20.822 Contact with and (suspected) exposure to COVID-19
CPT/HCPCS: 0241U; 36415; 71045; 71275; 80053; 83036; 84484; 85025; 85379; 93005; 96361; 96374; 96375; 99284; J2270; J2405; J3490; J7030; Q9967

== ENCOUNTER 2022-07-19 15:14 | Emergency (ER) | payer BC, OTHER ==
[2022-07-19] MEDS ORDERED: Ondansetron 4 MG/2 ML SDV IVPUSH ONE (16:48)
[2022-07-19] MEDS ORDERED: Sodium Chloride 0.9% 10 ML Syringe FLUSH PRN (16:48)
[2022-07-19] MEDS ORDERED: Ketorolac 30 MG/ML SDV IVPUSH ONE (16:48)
[2022-07-19] MEDS ORDERED: Sodium Chloride 0.9% 2.5 ML Syringe FLUSH PRN (16:48)
[2022-07-19] MEDS ORDERED: Sodium Chloride 0.9% 1,000 ML IV ONE (16:57)
[2022-07-19 17:38] LABS: CARBON DIOXIDE,CO2 25.8 mmol/L (21.0-32.0); POTASSIUM,K 3.8 mmol/L (3.5-5.1)
[2022-07-19 19:02] VITALS: BP 124/65; PULSE 76
== END 2022-07-19 19:00 | disposition home or self-care (01) ==
LOC: MW.ED 15:14
DX: R10.9 Unspecified abdominal pain (principal); E11.9 Type 2 diabetes mellitus without complications; I10 Essential (primary) hypertension; J45.909 Unspecified asthma, uncomplicated; E66.9 Obesity, unspecified; Z68.41 Body mass index [BMI] 40.0-44.9, adult; Z91.040 Latex allergy status; Z88.5 Allergy status to narcotic agent; Z91.018 Allergy to other foods; Z88.1 Allergy status to other antibiotic agents; Z91.048 Other nonmedicinal substance allergy status; Z79.899 Other long term (current) drug therapy; Z72.0 Tobacco use
CPT/HCPCS: 36415; 74176; 80053; 81003; 81025; 85025; 96361; 96374; 96375; 99284; J1885; J2405; J3490; J7030

== ENCOUNTER 2022-09-02 20:38 | Emergency (ER) | payer BC, OTHER ==
[2022-09-02] MEDS ORDERED: Ondansetron 4 MG Tab.DIS PO ONE (23:44)
[2022-09-02] MEDS ORDERED: Acetaminophen/HYDROcodone 325-5 MG Tab PO ONE (23:44)
[2022-09-03 02:25] VITALS: PULSE 74
[2022-09-03 03:48] VITALS: BP 140/78
== END 2022-09-03 03:45 | disposition home or self-care (01) ==
LOC: MW.ED 20:38
DX: S82.234A Nondisplaced oblique fracture of shaft of right tibia, initial encounter for closed fracture (principal); I10 Essential (primary) hypertension; J45.909 Unspecified asthma, uncomplicated; K21.9 Gastro-esophageal reflux disease without esophagitis; E11.9 Type 2 diabetes mellitus without complications; E66.9 Obesity, unspecified; Z68.30 Body mass index [BMI] 30.0-30.9, adult; Z79.899 Other long term (current) drug therapy; Z91.018 Allergy to other foods; Z88.8 Allergy status to other drugs, medicaments and biological substances; Z91.040 Latex allergy status; Z88.1 Allergy status to other antibiotic agents; W19.XXXA Unspecified fall, initial encounter
CPT/HCPCS: 73700; 99283; A9270

== ENCOUNTER 2023-12-04 17:06 | Emergency (ER) | payer BC, OTHER ==
[2023-12-04] MEDS ORDERED: Sodium Chloride 0.9% 1,000 ML IV ONE (18:52)
[2023-12-04 22:51] VITALS: BP 147/97; PULSE 69
== END 2023-12-04 19:37 | disposition home or self-care (01) ==
LOC: MW.ED 17:06
DX: E11.649 Type 2 diabetes mellitus with hypoglycemia without coma (principal); I10 Essential (primary) hypertension; K21.9 Gastro-esophageal reflux disease without esophagitis; E66.9 Obesity, unspecified; F17.210 Nicotine dependence, cigarettes, uncomplicated; Z68.41 Body mass index [BMI] 40.0-44.9, adult; Z91.048 Other nonmedicinal substance allergy status; Z91.018 Allergy to other foods; Z91.040 Latex allergy status; Z88.1 Allergy status to other antibiotic agents; Z88.8 Allergy status to other drugs, medicaments and biological substances; Z90.49 Acquired absence of other specified parts of digestive tract; Z90.710 Acquired absence of both cervix and uterus
CPT/HCPCS: 82947; 99283; 99285

== ENCOUNTER 2024-04-08 11:47 | Emergency (ER) | payer BC, OTHER ==
[2024-04-08] MEDS ORDERED: Sodium Chloride 0.9% 2.5 ML Syringe FLUSH PRN (11:49)
[2024-04-08] MEDS ORDERED: Sodium Chloride 0.9% 10 ML Syringe FLUSH PRN (11:49)
[2024-04-08] MEDS: Sodium Chloride 0.9% 1,000 ML IV STA (12:59)
[2024-04-08 13:16] LABS: APPEARANCE,URINE CLOUDY; BASOPHILS PERCENT AUTO 0.9 % (0.0-1.0); BILIRUBIN,URINE NEGATIVE (NEGATIVE); COLOR,URINE BROWN; EOSINOPHILS ABSOLUTE AUTO 0.41 K/uL (0.00-0.45); EOSINOPHILS PERCENT AUTO 3.5 % (0.0-6.0); GLUCOSE,URINE NEGATIVE (NEGATIVE); HEMATOCRIT 38.4 % (37.0-47.0); IMMATURE GRAN ABSOLUTE AUTO 0.03 K/uL (0.00-0.05); IMMATURE GRAN PERCENT AUTO 0.3 % (0.0-0.4); KETONES,URINE NEGATIVE (NEGATIVE); LEUKOCYTE ESTERASE,URINE LARGE (NEGATIVE); LYMPHOCYTES ABSOLUTE AUTO 2.69 K/uL (1.00-4.80); LYMPHOCYTES PERCENT AUTO 22.9 % (24.0-44.0); MEAN CORPUSCULAR HEMOGLOBIN 29.1 pg (28.0-32.0); MEAN CORPUSCULAR HGB CONC 33.9 g/dL (32.0-36.0); MEAN CORPUSCULAR VOLUME 85.9 fL (83.0-99.0); MEAN PLATELET VOLUME 9.4 fL (9.4-12.3); MONOCYTES ABSOLUTE AUTO 0.72 K/uL (0.00-0.80); MONOCYTES PERCENT AUTO 6.1 % (0.0-8.0); NEUTROPHILS PERCENT AUTO 66.3 % (41.0-71.0); NITRITE,URINE NEGATIVE (NEGATIVE); OCCULT BLOOD,URINE MODERATE (NEGATIVE); PH,URINE 7.5 (5.0-8.0); PLATELET COUNT,PLT 365 K/uL (150-400); PROTEIN,URINE TRACE mg/dL (NEGATIVE); RED BLOOD CELL COUNT 4.47 M/uL (4.10-5.30); UROBILINOGEN,URINE 0.2 EU/dL (<2.0); WHITE BLOOD CELL COUNT,WBC 11.75 K/uL (3.9-11.3)
[2024-04-08] MEDS: Morphine 4 MG/ML Syringe IVPUSH ONE (13:22)
[2024-04-08] MEDS: Ondansetron 4 MG/2 ML SDV IVPUSH ONE (13:22)
[2024-04-08 13:34] LABS: BACTERIA,URINE FEW (NEGATIVE); EPITHELIAL CELLS,URINE FEW (NONE-FEW); RBC,URINE TOO NUMEROUS TO CT (0-2/HPF)
[2024-04-08 13:35] LABS: A/G RATIO 0.9 (0.9-1.6); ALBUMIN 3.9 g/dL (3.4-5.0); BILIRUBIN TOTAL 0.3 mg/dL (0.2-1.0); CALCIUM 9.5 mg/dL (8.5-10.1); CARBON DIOXIDE,CO2 26.6 mmol/L (21.0-32.0); CREATININE 0.7 mg/dL (0.6-1.0); EST CRCL DRUG DOSING (CG) 76.58 mL/min; POTASSIUM,K 4.2 mmol/L (3.5-5.1); PROTEIN TOTAL,TP 8.2 g/dL (6.4-8.2)
[2024-04-08] MEDS: Iopamidol 755 MG/ML 500 ML Multipack Bottle IVPUSH STA (13:58)
[2024-04-08 14:58] VITALS: BP 139/78; PULSE 70
== END 2024-04-08 14:57 | disposition home or self-care (01) ==
LOC: MW.ED 11:47
DX: R10.32 Left lower quadrant pain (principal); R30.0 Dysuria; R31.9 Hematuria, unspecified; I10 Essential (primary) hypertension; J45.909 Unspecified asthma, uncomplicated; K21.9 Gastro-esophageal reflux disease without esophagitis; E11.9 Type 2 diabetes mellitus without complications; E66.9 Obesity, unspecified; Z68.41 Body mass index [BMI] 40.0-44.9, adult; Z90.49 Acquired absence of other specified parts of digestive tract; Z90.710 Acquired absence of both cervix and uterus; Z88.8 Allergy status to other drugs, medicaments and biological substances; Z91.018 Allergy to other foods; Z91.040 Latex allergy status; Z91.048 Other nonmedicinal substance allergy status; Z79.899 Other long term (current) drug therapy; Z75.8 Other problems related to medical facilities and other health care
CPT/HCPCS: 36415; 74177; 80053; 81001; 83690; 85025; 96361; 96374; 96375; 99284; J2270; J2405; J7030; Q9967

== ENCOUNTER 2024-09-25 14:38 | Emergency (ER) | payer BC, OTHER ==
[2024-09-25] MEDS ORDERED: Sodium Chloride 0.9% 2.5 ML Syringe FLUSH PRN (14:41)
[2024-09-25] MEDS: Sodium Chloride 0.9% 10 ML Syringe FLUSH PRN (15:01)
[2024-09-25 15:08] LABS: BASOPHILS ABSOLUTE AUTO 0.06 K/uL (0.00-0.20); BASOPHILS PERCENT AUTO 0.7 % (0.0-1.0); EOSINOPHILS ABSOLUTE AUTO 0.24 K/uL (0.00-0.45); EOSINOPHILS PERCENT AUTO 2.6 % (0.0-6.0); IMMATURE GRAN ABSOLUTE AUTO 0.04 K/uL (0.00-0.05); IMMATURE GRAN PERCENT AUTO 0.4 % (0.0-0.4); LYMPHOCYTES ABSOLUTE AUTO 2.88 K/uL (1.00-4.80); LYMPHOCYTES PERCENT AUTO 31.6 % (24.0-44.0); MEAN PLATELET VOLUME 9.2 fL (9.4-12.3); MONOCYTES ABSOLUTE AUTO 0.65 K/uL (0.00-0.80); MONOCYTES PERCENT AUTO 7.1 % (0.0-8.0); NEUTROPHILS ABSOLUTE AUTO 5.25 K/uL (1.80-7.70); NEUTROPHILS PERCENT AUTO 57.6 % (41.0-71.0); NRBC ABSOLUTE 0.00 K/uL (0.00-0.02); NRBC PERCENT 0.0 /100WBC (0.0-0.2); PLATELET COUNT,PLT 285 K/uL (150-400); RED BLOOD CELL COUNT 3.91 M/uL (4.10-5.30); WHITE BLOOD CELL COUNT,WBC 9.12 K/uL (3.9-11.3)
[2024-09-25 15:22] LABS: D-DIMER QUANTITATIVE 0.6 mg/L FEU (0.00-0.50); INR 0.98 (0.86-1.11); PTT,PARTIAL THROMBOPLSTIN TIME 27.3 SEC (23.9-30.7)
[2024-09-25 15:38] LABS: A/G RATIO 1.1 (0.9-1.6); ALANINE AMINOTRANSFERASE,ALT 44.0 IU/L (14-63); ASPARTATE AMNIOTRANSFERASE,AST 25.0 IU/L (15-37); BILIRUBIN TOTAL 0.3 mg/dL (0.2-1.0); BLOOD UREA NITROGEN,BUN 12.0 mg/dL (7.0-18.0); CARBON DIOXIDE,CO2 24.4 mmol/L (21.0-32.0); CHLORIDE,CL 97.0 mmol/L (98-107); CREATININE 0.8 mg/dL (0.6-1.0); EST CRCL DRUG DOSING (CG) 66.31 mL/min; GLUCOSE RANDOM 153.0 mg/dL (74-106); POTASSIUM,K 4.2 mmol/L (3.5-5.1); PRO B-TYPE NATRIUR PEPT,BNPPRO 54.0 pg/mL (0-125); PROTEIN TOTAL,TP 7.0 g/dL (6.4-8.2); SODIUM,NA 133.0 mmol/L (136-145)
[2024-09-25 15:40] LABS: ESTIMATED GFR 92.0 mL/min (>60)
[2024-09-25] MEDS: Iopamidol 755 MG/ML 500 ML Multipack Bottle IVPUSH STA (17:05)
[2024-09-26 04:35] VITALS: BP 118/60; PULSE 68
== END 2024-09-25 18:18 | disposition home or self-care (01) ==
LOC: MW.ED 14:38
DX: R07.9 Chest pain, unspecified (principal); I10 Essential (primary) hypertension; K21.9 Gastro-esophageal reflux disease without esophagitis; E66.9 Obesity, unspecified; E11.9 Type 2 diabetes mellitus without complications; Z88.1 Allergy status to other antibiotic agents; Z91.018 Allergy to other foods; Z91.040 Latex allergy status; Z91.048 Other nonmedicinal substance allergy status; Z88.8 Allergy status to other drugs, medicaments and biological substances; Z79.899 Other long term (current) drug therapy; Z68.41 Body mass index [BMI] 40.0-44.9, adult
CPT/HCPCS: 36415; 71045; 71275; 80053; 83690; 83735; 83880; 84484; 85025; 85379; 85610; 85730; 93005; 96374; 99285; J2270; Q9967

== ENCOUNTER 2024-10-03 10:54 | Emergency (ER) | payer BC, OTHER ==
[2024-10-03] MEDS ORDERED: Sodium Chloride 0.9% 2.5 ML Syringe FLUSH PRN (11:19)
[2024-10-03] MEDS ORDERED: Sodium Chloride 0.9% 10 ML Syringe FLUSH PRN (11:19)
[2024-10-03] MEDS ORDERED: 50% Dextrose in Water 50 ML Syringe IVPUSH PRN (11:19)
[2024-10-03 11:24] LABS: BASOPHILS ABSOLUTE AUTO 0.08 K/uL (0.00-0.20); BASOPHILS PERCENT AUTO 0.9 % (0.0-1.0); EOSINOPHILS ABSOLUTE AUTO 0.30 K/uL (0.00-0.45); EOSINOPHILS PERCENT AUTO 3.2 % (0.0-6.0); IMMATURE GRAN ABSOLUTE AUTO 0.04 K/uL (0.00-0.05); IMMATURE GRAN PERCENT AUTO 0.4 % (0.0-0.4); LYMPHOCYTES ABSOLUTE AUTO 2.05 K/uL (1.00-4.80); LYMPHOCYTES PERCENT AUTO 21.9 % (24.0-44.0); MEAN PLATELET VOLUME 9.5 fL (9.4-12.3); MONOCYTES ABSOLUTE AUTO 0.64 K/uL (0.00-0.80); MONOCYTES PERCENT AUTO 6.8 % (0.0-8.0); NEUTROPHILS ABSOLUTE AUTO 6.25 K/uL (1.80-7.70); NEUTROPHILS PERCENT AUTO 66.8 % (41.0-71.0); NRBC ABSOLUTE 0.00 K/uL (0.00-0.02); NRBC PERCENT 0.0 /100WBC (0.0-0.2); PLATELET COUNT,PLT 280 K/uL (150-400); RED BLOOD CELL COUNT 4.11 M/uL (4.10-5.30); WHITE BLOOD CELL COUNT,WBC 9.36 K/uL (3.9-11.3)
[2024-10-03] MEDS: Insulin Regular, Human 100 Units/ML 10 ML Vial IVPUSH ONE (11:31)
[2024-10-03 11:49] LABS: A/G RATIO 0.9 (0.9-1.6); BILIRUBIN TOTAL 0.3 mg/dL (0.2-1.0); BLOOD UREA NITROGEN,BUN 13.0 mg/dL (7.0-18.0); CARBON DIOXIDE,CO2 20.6 mmol/L (21.0-32.0); CHLORIDE,CL 95.0 mmol/L (98-107); CREATININE 1.0 mg/dL (0.6-1.0); EST CRCL DRUG DOSING (CG) 53.04 mL/min; GLUCOSE RANDOM 334.0 mg/dL (74-106); POTASSIUM,K 4.3 mmol/L (3.5-5.1); PRO B-TYPE NATRIUR PEPT,BNPPRO 24.0 pg/mL (0-125); PROTEIN TOTAL,TP 7.2 g/dL (6.4-8.2); SODIUM,NA 132.0 mmol/L (136-145); TSH ULTRASENSITIVE 2.54 uIU/mL (0.36-3.74)
[2024-10-03 11:51] LABS: ESTIMATED GFR 70.0 mL/min (>60)
[2024-10-03 12:00] LABS: ALANINE AMINOTRANSFERASE,ALT 58.0 IU/L (14-63); ASPARTATE AMNIOTRANSFERASE,AST 67.0 IU/L (15-37)
[2024-10-03] MEDS: Magnesium Sulfate 2 GM/50 mL 2 GM in Premix Bag 1 BAG IV ONE (12:31)
[2024-10-03 13:48] LABS: APPEARANCE,URINE CLEAR; GLUCOSE,URINE 500 mg/dL (NEGATIVE); OCCULT BLOOD,URINE NEGATIVE (NEGATIVE)
[2024-10-03] MEDS: Iopamidol 755 MG/ML 500 ML Multipack Bottle IVPUSH STA (15:37)
[2024-10-03 17:59] VITALS: BP 114/61; PULSE 72
== END 2024-10-03 18:07 | disposition home or self-care (01) ==
LOC: MW.ED 10:54
DX: E11.65 Type 2 diabetes mellitus with hyperglycemia (principal); I10 Essential (primary) hypertension; J45.909 Unspecified asthma, uncomplicated; K21.9 Gastro-esophageal reflux disease without esophagitis; Z90.49 Acquired absence of other specified parts of digestive tract; F17.210 Nicotine dependence, cigarettes, uncomplicated; Z91.040 Latex allergy status; Z91.048 Other nonmedicinal substance allergy status; Z88.8 Allergy status to other drugs, medicaments and biological substances; Z91.018 Allergy to other foods; Z91.09 Other allergy status, other than to drugs and biological substances; Z79.899 Other long term (current) drug therapy; Z79.84 Long term (current) use of oral hypoglycemic drugs; Z79.85 Long-term (current) use of injectable non-insulin antidiabetic drugs
CPT/HCPCS: 36415; 71045; 71275; 74177; 80053; 81003; 82947; 83690; 83735; 83880; 84443; 84484; 84703; 85025; 85379; 93005; 96361; 96365; 99285; J3475; J7030; Q9967; 99284; J1815-GY